=== PATIENT | female | born 1960 | race Caucasian/White ===

== ENCOUNTER 2016-06-03 11:25 | Emergency (ER) | payer SELFPAY ==
[~2016-06-03] VITALS: Ht 167.6 cm; Wt 63.2 kg
[~2016-06-03 11:25] MED LIST: ASPI1TAB7 PO; ATEN-102 PO; CELE20TA PO; MEDR150P IM; TRAZ100 PO
[2016-06-03 11:27] VITALS: BP 136/76; PULSE 67; RESP 15; TEMP 97.8; O2SAT 98
[2016-06-03] MEDS ORDERED: CELE20TA PO (13:07)
[2016-06-03] MEDS ORDERED: ASPI81CH CHEW (13:07)
[2016-06-03] MEDS ORDERED: DEPO150I IM (13:07)
[2016-06-03] MEDS ORDERED: ATEN50TA PO (13:07)
[2016-06-03] MEDS ORDERED: TRAZ100T4 PO (13:07)
[2016-06-03] MEDS ORDERED: METH500T3 PO (13:07)
[2016-06-03] MEDS ORDERED: LAMO25TA PO (13:07)
--- NOTE | 2016-06-03 13:31 | PD ---
HPI Chief Complaint: Cold / Flu Symptoms Time Seen by Provider: 12:50 Travel History International Travel<30 days: No Contact w/Intl Traveler<30days: No Traveled to known affect area: No History of Present Illness HPI Patient is a 55 year old female presents with coughing, congested, runny nose, fatigued and body aches for the past four days. States that she has been having nose bleeds after trying afrin as well. States she has just been feeling run down. Trying OTC remedies without much success. States URI symptoms are gradually worsening but that the nose bleed has resolved. Denies fevers. Symptoms are moderate in severity. PFSH Past Medical History Anxiety: Yes Depression: Yes Cardiac Catheterization: Yes (STENTS X 2) Cardiovascular Problems: Yes (HX OF MS ) Coronary Artery Disease: Yes Diminished Hearing: No Hypertension: Yes Tetanus Vaccination: Unknown ?: Not Menopausal: Yes : 1 Para: 1 Past Surgical History Section: Yes (X 1) Tonsillectomy: Yes Social History Alcohol Use: No (HX OF ETOH ABUSE) Tobacco Use: Yes (1 PPD) Substance Use: No (quit) Allergies-Medications (Allergen,Severity, Reaction): Coded Allergies: Nitroglycerin (Verified Allergy, Severe, Anaphylaxis, 06/03/16) Tetracycline (Verified Adverse Reaction, Intermediate, Shortness of Breath , 06/03/16) Reported Meds & Prescriptions Reported Meds & Active Scripts Active Atenolol 50 Mg Tab 50 Mg PO DAILY Trazodone HCl 100 Mg Tab 100 Mg PO HS Depoprovera 150 Mg Vial (Medroxyprogesterone Acetate) 150 Mg/Ml Susp 150 Mg IM Q90D First dose during the first 5 days of period. Come to clinic to administer injection. All Future refills done by Building [facility]er. Reported Methocarbamol 500 Mg Tab 500 Mg PO QID PRN Lamotrigine 25 Mg Tab 50 Mg PO BID Depo-Provera Inj (Medroxyprogesterone Inj) 150 Mg/Ml Inj 150 Mg IM ONCE Trazodone (Trazodone HCl) 100 Mg Tab 100 Mg PO HS Celexa (Citalopram Hydrobromide) 20 Mg Tab 30 Mg PO DAILY Atenolol 50 Mg Tab 50 Mg PO DAILY Aspirin 81 Mg Chew 81 Mg CHEW DAILY Celexa (Citalopram Hydrobromide) 20 Mg Tab 30 Mg PO DAILY Aspirin 81 mg Tab (Aspirin) 81 Mg Tab 81 Mg PO DAILY Review of Systems Except as stated in HPI: all other systems reviewed are Neg Physical Exam Narrative GENERAL: WD/WN in nad. Speaking in full sentances, non-toxic appearance, no cough. SKIN: Warm and dry. HEAD: Normocephalic. EYES: No scleral icterus. No injection or drainage. ENT: TM's clear bilaterally, there is a small area of irritation on the right nasal septum likely the source of her bleeding. No septal hematoma. No bleeding currently. Oropharynx clear and moist. NECK: Supple, trachea midline. No JVD or lymphadenopathy. CARDIOVASCULAR: Regular rate and rhythm without murmurs, gallops, or rubs. RESPIRATORY: Breath sounds equal bilaterally. No accessory muscle use. GASTROINTESTINAL: Abdomen soft, non-tender, nondistended. MUSCULOSKELETAL: No cyanosis, or edema. BACK: Nontender without obvious deformity. No CVA tenderness. Data Data Last Documented VS Vital Signs Date Time Temp Pulse Resp B/P Pulse Ox O2 Delivery O2 Flow Rate FiO2 06/03/16 11:27 97.8 67 15 136/76 98 Orders Chest, Pa & Lat (06/03/16 ) [facility] Medical Decision Making Medical Screen Exam Complete: Yes Emergency Medical Condition: Yes Differential Diagnosis PNA, URI, Epistaxis, nasal mucosal irritation. Narrative Course Given her age, CXR is indicated to rule out pna. VS WNL. She appears well. If CXR neg there is no indication for antibiotics and she will do well from symptomatic management with OTC meds. Last 24 hours Impressions Chest X-Ray 06/03/16 0000 Signed Impressions: Service Date/Time: Friday, June 03, 2016 13:25 - CONCLUSION: No acute cardiopulmonary abnormality is identified. Kameron Wallace MD Diagnosis Primary Impression: URI (upper respiratory infection) Qualified Code: J06.9 - Viral upper respiratory tract infection Disposition: DISCHARGE HOME Condition: Stable Skip Snell MD Jun 03, 2016 13:31
--- NOTE | 2016-06-03 13:48 | RADRPT ---
EXAM DATE/TIME: 06/03/2016 13:25 [facility] COMPARISON: CHEST SINGLE AP, January 08, 2016, 12:55. INDICATIONS : Cough and congestion. MEDICAL HISTORY : Hypertension. Myocardial infarction. Endocarditis. CAD. SURGICAL HISTORY : Stents. ENCOUNTER: Initial ACUITY: 4 - 6 days PAIN SCORE: 0/10 LOCATION: Bilateral chest FINDINGS: PA and lateral views of the chest demonstrate a normal-sized cardiac silhouette. There is no effusion , consolidation, or pneumothorax. The bones and soft tissues demonstrate no acute abnormality. There are stable healed right rib fractures.CONCLUSION: No acute cardiopulmonary abnormality is identified. Kameron Wallace MD on June 03, 2016 at 13:46 Board Certified Radiologist. This report was verified electronically.
== END 2016-06-03 13:56 | disposition home or self-care (01) ==
LOC: NEPA 11:25
DX: J06.9 Acute upper respiratory infection, unspecified (principal); F17.200 Nicotine dependence, unspecified, uncomplicated
CPT/HCPCS: 71020; 99283

== ENCOUNTER 2016-06-28 18:28 | Emergency (ER) | payer SELFPAY ==
[~2016-06-28] VITALS: Ht 167.6 cm; Wt 67.0 kg
[~2016-06-28 18:28] MED LIST changes: +ASPI81CH CHEW; +ATEN50TA PO; +DEPO150I IM; +LAMO25TA PO; +METH500T3 PO; +TRAZ100T4 PO
[2016-06-28 18:29] VITALS: BP 178/89; PULSE 66; RESP 24; TEMP 98.3; O2SAT 93
== END 2016-06-28 18:50 | disposition left against medical advice (07) ==
LOC: NED 18:45
DX: R68.89 Other general symptoms and signs (principal)
CPT/HCPCS: 99281

== ENCOUNTER 2017-06-29 15:07 | Emergency (ER) | payer SELFPAY ==
[~2017-06-29] VITALS: Ht 167.6 cm; Wt 65.0 kg
[~2017-06-29 15:07] MED LIST changes: +ASPI-516 CHEW; -ASPI81CH CHEW
[2017-06-29 15:10] VITALS: BP 155/88; PULSE 67; RESP 20; TEMP 98.9; O2SAT 93
[2017-06-29] MEDS ORDERED: MORPHINE SULFATE 4 MG/ML INJ IV PUSH ONE (15:45)
[2017-06-29] MEDS ORDERED: KETOROLAC TROMETHAMINE 30 MG/ML (IVP) VIAL IV PUSH ONE (15:45)
[2017-06-29] MEDS ORDERED: ONDANSETRON HCL 4 MG/2 ML VIAL IV PUSH ONE (15:45)
--- NOTE | 2017-06-29 15:50 | PD ---
HPI Chief Complaint: Respiratory Symptoms Time Seen by Provider: 15:33 Travel History International Travel<30 days: No Contact w/Intl Traveler<30days: No Traveled to known affect area: No History of Present Illness HPI The patient is a 56-year-old female who presents emergency department for right sided chest wall pain. The patient states that she was hugged by a friend on Saturday, developed some right sided chest pain. The patient felt like there was a "crack" when she was hugged by her friend. The pain is located over the lateral and anterior aspect of the right chest wall, worse with inspiration as well as coughing and movement. She does note mild shortness of breath secondary to the pain, denies any change in cough. She does have a history of tobacco use, denies any history of pneumothorax. She denies any nausea, vomiting, or abdominal pain. Symptoms are moderate. PFSH Past Medical History Anxiety: Yes Depression: Yes Cardiac Catheterization: Yes (STENTS X 2) Cardiovascular Problems: Yes Coronary Artery Disease: Yes Diminished Hearing: No Hypertension: Yes Tetanus Vaccination: > 5 Years Influenza Vaccination: No ?: Not Menopausal: Yes : 1 Para: 1 Past Surgical History Section: Yes (X 1) Tonsillectomy: Yes Social History Alcohol Use: No (HX OF ETOH ABUSE) Tobacco Use: Yes (1 PPD) Substance Use: No (quit) Allergies-Medications (Allergen,Severity, Reaction): Coded Allergies: nitroglycerin (Unverified Allergy, Severe, Anaphylaxis, 06/29/17) doxycycline (Unverified Adverse Reaction, Intermediate, Shortness of Breath, 06/29/17) minocycline (Unverified Adverse Reaction, Intermediate, Shortness of Breath, 06/29/17) tigecycline (Unverified Adverse Reaction, Intermediate, Shortness of Breath, 06/29/17) Reported Meds & Prescriptions Reported Meds & Active Scripts Active Atenolol 50 Mg Tab 50 Mg PO DAILY Trazodone HCl 100 Mg Tab 100 Mg PO HS Depoprovera 150 Mg Vial (Medroxyprogesterone Acetate) 150 Mg/Ml Susp 150 Mg IM Q90D First dose during the first 5 days of period. Come to clinic to administer injection. All Future refills done by [facility] Service [employer]igator. Reported Methocarbamol 500 Mg Tab 500 Mg PO QID PRN Lamotrigine 25 Mg Tab 50 Mg PO BID Depo-Provera Inj (Medroxyprogesterone Inj) 150 Mg/Ml Inj 150 Mg IM ONCE Trazodone (Trazodone HCl) 100 Mg Tab 100 Mg PO HS Celexa (Citalopram Hydrobromide) 20 Mg Tab 30 Mg PO DAILY Atenolol 50 Mg Tab 50 Mg PO DAILY Aspirin 81 Mg Chew 81 Mg CHEW DAILY Celexa (Citalopram Hydrobromide) 20 Mg Tab 30 Mg PO DAILY Aspirin 81 mg Tab (Aspirin) 81 Mg Tab 81 Mg PO DAILY Review of Systems Except as stated in HPI: all other systems reviewed are Neg General / Constitutional: No: Fever HENT: No: Lightheadedness Cardiovascular: Positive: Chest Pain or Discomfort Respiratory: No: Shortness of Breath Gastrointestinal: No: Nausea, Vomiting, Abdominal Pain Physical Exam Narrative GENERAL: Awake, alert, pleasant 56-year-old female who appears her stated age and is in no acute respiratory distress. The exam was performed in the presence of a female nurse. SKIN: Focused skin assessment warm/dry. HEAD: Atraumatic. Normocephalic. EYES: Patient is wearing glasses.. ENT: No nasal bleeding or discharge. Mucous membranes pink and moist. NECK: Trachea midline. No JVD. CARDIOVASCULAR: Regular rate and rhythm. No murmur appreciated. Tender palpation of the lateral and anterior right chest wall. No ecchymosis or crepitus noted. RESPIRATORY: No accessory muscle use. Clear to auscultation. Breath sounds equal bilaterally. GASTROINTESTINAL: Abdomen soft, non-tender, nondistended. No rebound tenderness. No right upper quadrant tenderness. No guarding or rigidity. MUSCULOSKELETAL: No obvious deformities. No clubbing. No cyanosis. No edema. NEUROLOGICAL: Awake and alert. No obvious cranial nerve deficits. Motor grossly within normal limits. Normal speech. PSYCHIATRIC: Appropriate mood and affect; insight and judgment normal. Data Data Last Documented VS Vital Signs Date Time Temp Pulse Resp B/P (MAP) Pulse Ox O2 Delivery O2 Flow Rate FiO2 06/29/17 15:10 98.9 67 20 155/88 (110) 93 Orders Orders Chest, Single Ap (06/29/17 ) Ketorolac Inj (Toradol Inj) (06/29/17 15:45) Morphine Inj (Morphine Inj) (06/29/17 15:45) Ondansetron Inj (Zofran Inj) (06/29/17 15:45) Ct Thorax/ Chest Wo Iv Contras (06/29/17 ) Resp Incentive Spirometry (06/29/17 ) MDM Medical Decision Making Medical Screen Exam Complete: Yes Emergency Medical Condition: Yes Medical Record Reviewed: Yes Interpretation(s) Chest x-ray unremarkable CT thorax without contrast reveals no acute abnormality is identified to explain the clinical symptoms. Coronary artery calcification. Differential Diagnosis Differential diagnosis includes fracture, pneumothorax, hemothorax, pulmonary contusion, pleuritic pain, rib fracture. Narrative Course IV was established and the patient was placed on cardiac telemetry monitoring and continuous pulse oximetry monitoring. The patient was administered Toradol , morphine, and Zofran. Chest x-ray was obtained. Chest x-ray was negative. CT of the thorax was obtained, no evidence of fracture. The patient will be discharged home on a 7 spirometry, anti-inflammatories, pain medication. She is advised to follow-up with her primary physician. Diagnosis Primary Impression: Right-sided chest wall pain Patient Instructions: General Instructions Additional Instructions: Medications as directed. Incentive spirometry. Stop smoking. Follow-up with her primary physician. Return if symptoms worsen or progress. Please provide a patient a copy of her CT results and x-ray results at discharge. Med/Other Pt SpecificInfo: Prescription(s) given Scripts Hydrocodone-Acetaminophen ([place]) 5 Mg-325 Mg Tab 1 TAB PO Q6H Y for PAIN, #12 TAB 0 Refills Prov: Daniel Nash MD 06/29/17 Ibuprofen (Ibuprofen) 600 Mg Tab 600 MG PO Q6H Y for Pain/Inflammation, #20 TAB 0 Refills Prov: Daniel Nash MD 06/29/17 Disposition: DISCHARGE HOME Condition: Stable Daniel Nash MD Jun 29, 2017 15:49
--- NOTE | 2017-06-29 16:24 | RADRPT ---
EXAM DATE/TIME: 06/29/2017 15:55 [facility] COMPARISON: CHEST PA & LAT, June 03, 2016, 13:25. CHEST SINGLE AP, January 08, 2016, 12:55. INDICATIONS : Chest pain. MEDICAL HISTORY : Myocardial infarction. Hypertension Depression. SURGICAL HISTORY : Stents. ENCOUNTER: Initial ACUITY: 4 - 6 days PAIN SCORE: 9/10 LOCATION: Bilateral chest FINDINGS: Portable AP view of the chest demonstrates a normal-sized cardiac silhouette. No effusion, consolidat ion, or pneumothorax is visualized. The bones and soft tissues demonstrate no acute abnormality. Ther e are stable old healed right rib fractures. CONCLUSION: Stable chest x-ray. No acute cardiopulmonary abnormalities identified. Kameron Wallace MD on June 29, 2017 at 16:22 Board Certified Radiologist. This report was verified electronically.
--- NOTE | 2017-06-29 17:49 | RADRPT ---
EXAM DATE/TIME: 06/29/2017 17:05 [facility] COMPARISON: CHEST SINGLE AP, June 29, 2017, 15:55. INDICATIONS : Right side pleuritic pain. RADIATION DOSE: 7.29 CTDIvol (mGy) MEDICAL HISTORY : Cardiovascular disease. Hypertension. Hepatitis C. SURGICAL HISTORY : Coronary artery stent. ENCOUNTER: Initial ACUITY: 3 days PAIN SCALE: 10/10 LOCATION: Right chest TECHNIQUE: Volumetric scanning of the chest was performed. Using automated exposure control and adjustment of t he mA and/or kV according to patient size, radiation dose was kept as low as reasonably achievable to obtain optimal diagnostic quality images. DICOM format image data is available electronically for r eview and comparison. Follow-up recommendations for detected pulmonary nodules are based at a minimum on nodule size and pa tient risk factors according to Fleischner Society Guidelines. FINDINGS: LUNGS: There is no consolidation or pneumothorax. No concerning pulmonary nodule is visualized. There is mi ld atelectasis at the right lung base. PLEURAE: There is no pleural thickening or pleural effusion. MEDIASTINUM: The heart and great vessels demonstrate no acute abnormality. There is coronary artery calcification. There is no mediastinal or hilar lymphadenopathy. AXILLAE: Within normal limits. No lymphadenopathy. MUSCULOSKELETAL: Within normal limits for patient age. There are mild degenerative changes of the thoracic spine. Ther e are stable old healed right rib fractures. MISCELLANEOUS: The visualized upper abdominal organs demonstrate no acute abnormality. CONCLUSION: 1. No acute abnormality is identified to explain the clinical symptoms. 2. Coronary artery calcification. Kameron Wallace MD on June 29, 2017 at 17:44 Board Certified Radiologist. This report was verified electronically.
[2017-06-29 17:51] VITALS: BP 103/57; PULSE 67; RESP 20; O2SAT 93
[2017-06-29] MEDS ORDERED: IBUP-232 PO (17:54)
[2017-06-29] MEDS ORDERED: NORC5TAB PO (17:54)
== END 2017-06-29 18:49 | disposition home or self-care (01) ==
LOC: NEPE 15:07
DX: R07.89 Other chest pain (principal); F41.9 Anxiety disorder, unspecified; F32.9 Major depressive disorder, single episode, unspecified; I10 Essential (primary) hypertension; F17.200 Nicotine dependence, unspecified, uncomplicated; Z79.82 Long term (current) use of aspirin; Z79.899 Other long term (current) drug therapy; Z88.8 Allergy status to other drugs, medicaments and biological substances
CPT/HCPCS: 71045; 71250; 94150; 96374; 96375; 99284; J1885; J2270; J2405

== ENCOUNTER 2017-09-16 22:58 | Inpatient (IN) | payer SELFPAY ==
[~2017-09-16] VITALS: Ht 167.6 cm; Wt 55.0 kg
[~2017-09-16 22:58] MED LIST changes: +IBUP-232 PO; +NORC5TAB PO
[2017-09-16 23:09] VITALS: BP 183/83; PULSE 54; RESP 18; TEMP 98.1; O2SAT 97
[2017-09-16 23:18] VITALS: O2SAT 96
[2017-09-16 23:40] LABS: AUTOMATED NEUTROPHIL # 7.4 TH/MM3 (1.8-7.7); BASOPHIL % 0.3 % (0.0-2.0); EOSINOPHIL % 0.2 % (0.0-4.0); HEMATOCRIT 39.5 % (35.0-46.0); HEMOGLOBIN 13.8 GM/DL (11.6-15.3); LYMPH % 16.4 % (9.0-44.0); LYMPHOCYTE # 1.6 TH/MM3 (1.0-4.8); MEAN CELL VOLUME 87.3 FL (80.0-100.0); MEAN CORPUSCULAR HEMOGLOBIN 30.5 PG (27.0-34.0); MEAN PLATELET VOLUME 8.8 FL (7.0-11.0); MONO % 8.7 % (0.0-8.0); MONOCYTE # 0.9 TH/MM3 (0-0.9); NEUT % 74.4 % (16.0-70.0); PLATELET COUNT 214 TH/MM3 (150-450); RED BLOOD COUNT 4.52 MIL/MM3 (4.00-5.30)
--- NOTE | 2017-09-16 23:49 | PD ---
HPI Chief Complaint: Altered Mental Status Time Seen by Provider: 23:11 Travel History International Travel<30 days: No Contact w/Intl Traveler<30days: No Traveled to known affect area: No History of Present Illness HPI The patient is a 56 year old female who presents to the [facility] emergency department with a history of altered mental status that reportedly began 2 days ago. The patient was brought in by ambulance services [facility]. They were told by the staff at the facility that the patient had been away for 4 days and then returned again 2 days ago. Since then, the patient has been sleeping in her room. The patient has not been coming out to eat or drink. The patient's blood sugar was reportedly 106 prior to arrival. The patient on arrival is drowsy although easily awakened. The patient is able to state her name and that she is currently in the hospital. Otherwise the patient is not providing any significant history. She refuses to open her eyes are examination of her pupils. The patient is spontaneously moving all of her extremities. [facility] Past Medical History Narrative Medical The patient's past medical history is obtained from reviewing the electronic medical record as the patient is uncooperative with her history. The patient has a history of anxiety and depression, coronary artery disease status post 2 stents being placed, hypertension. Anxiety: Yes Depression: Yes Cardiac Catheterization: Yes (STENTS X 2) Cardiovascular Problems: Yes Coronary Artery Disease: Yes Diminished Hearing: No Hypertension: Yes Tetanus Vaccination: Unknown Influenza Vaccination: No ?: Not Menopausal: Yes : 1 Para: 1 Past Surgical History Narrative Surgical The patient's past surgical history is significant for tonsillectomy, , cardiac catheterization with stent placement. Section: Yes (X 1) Tonsillectomy: Yes Social History Alcohol Use: No (HX OF ETOH ABUSE) Tobacco Use: Yes (1 PPD) Substance Use: Yes (in the past. been in rehab for 9 months) Allergies-Medications (Allergen,Severity, Reaction): Coded Allergies: nitroglycerin (Unverified Allergy, Severe, Anaphylaxis, 09/16/17) doxycycline (Unverified Adverse Reaction, Intermediate, Shortness of Breath, 09/16/17) minocycline (Unverified Adverse Reaction, Intermediate, Shortness of Breath, 09/16/17) tigecycline (Unverified Adverse Reaction, Intermediate, Shortness of Breath, 09/16/17) Reported Meds & Prescriptions Reported Meds & Active Scripts Active [place] (Hydrocodone-Acetaminophen) 5 Mg-325 Mg Tab 1 Tab PO Q6H PRN Ibuprofen 600 Mg Tab 600 Mg PO Q6H PRN Reported Methocarbamol 500 Mg Tab 500 Mg PO QID PRN Lamotrigine 25 Mg Tab 50 Mg PO BID Depo-Provera Inj (Medroxyprogesterone Inj) 150 Mg/Ml Inj 150 Mg IM ONCE Celexa (Citalopram Hydrobromide) 20 Mg Tab 30 Mg PO DAILY Atenolol 50 Mg Tab 50 Mg PO DAILY Aspirin 81 Mg Chew 81 Mg CHEW DAILY Review of Systems ROS Limitations: Refused, Poor Historian Neurologic: Positive: Change in Mentation Physical Exam Narrative General: The patient is a well-developed well-nourished female, drowsy on arrival, otherwise in no acute distress. Head and Neck exam: Head is normocephalic atraumatic. Eyes: The patient refuses to open her eyes for examination of her pupils. She refuses to cooperate with extraocular motion testing. The patient is noted on examination of her pupils to have dilated pupils bilaterally that are equal round and reactive to light. Nose: Midline septum with pink mucous membranes Mouth: Dentition unremarkable. Moist mucus membranes. Posterior oropharynx is not erythematous. No tonsillar hypertrophy. Uvula midline. Airway patent. Neck: No palpable lymphadenopathy. No nuchal rigidity. No thyromegaly. Cardiovascular: Sinus bradycardia in the 50s without murmurs, gallops, or rubs. No pulse deficit to the extremities on simultaneous auscultation and palpation of her radial artery. Lungs: Clear to auscultation bilaterally. No wheezes, rhonchi, or rales. Abdomen: Soft, without tenderness to palpation in all 4 quadrants of the abdomen. No guarding, rebound, or rigidity. Normal bowel sounds are audible. No tenderness on palpation of McBurney's point Extremities: No clubbing, cyanosis, or edema. 2+ pulses in all 4 extremities. Back: No spinous process tenderness to palpation. No costovertebral angle tenderness to palpation. Neurologic Exam: Grossly nonfocal. The patient spontaneously moves all extremities with 5/5 strength. The patient has intact sensation over all dermatomes. The patient has no facial asymmetry noted. Skin Exam: No rash noted. Intact skin that is warm and dry. Data Data Last Documented VS Vital Signs Date Time Temp Pulse Resp B/P (MAP) Pulse Ox O2 Delivery O2 Flow Rate FiO2 09/17/17 02:05 58 16 221/99 (139) 98 Room Air 09/16/17 23:09 98.1 Orders Orders Blood Glucose (09/16/17 23:15) Oximetry (09/16/17 23:15) Iv Access Insert/Monitor (09/16/17 23:15) Ecg Monitoring (09/16/17 23:15) Oxygen Administration (09/16/17 23:15) Complete Blood Count With Diff (09/16/17 23:15) Urinalysis - C+S If Indicated (09/16/17 23:15) Electrocardiogram (09/16/17 ) Electrocardiogram (09/16/17 23:18) Creatine Kinase (Cpk) (09/16/17 23:18) Ckmb (Isoenzyme) Profile (09/16/17 23:18) Troponin I (09/16/17 23:18) B-Type Natriuretic Peptide (09/16/17 23:18) Prothrombin Time / Inr (Pt) (09/16/17 23:18) Act Partial Throm Time (Ptt) (09/16/17 23:18) Lipase (09/16/17 23:18) Magnesium (Mg) (09/16/17 23:18) Ammonia (09/16/17 23:18) Thyroid Stimulating Hormone (09/16/17 23:18) Chest, Single Ap (09/16/17 23:18) Ct Brain W/O Iv Contrast(Rout) (09/16/17 23:18) Drug Screen, Random Urine (09/16/17 23:18) Alcohol (Ethanol) (09/16/17 23:18) Salicylates (Aspirin) (09/16/17 23:18) Tylenol (Acetaminophen) (09/16/17 23:18) Comprehensive Metabolic Panel (09/16/17 23:30) Cath For Specimen (09/17/17 00:01) CKMB (09/16/17 23:30) CKMB% (09/16/17 23:30) Sodium Chlor 0.9% 1000 Ml Inj (Ns 1000 M (09/17/17 00:45) Potassium Chlor 20 Meq Premix (Kcl 20 Me (09/17/17 00:45) Ct Abd/Pel W Iv Contrast(Rout) (09/17/17 00:32) Ed Urine Pregnancytest Poc (09/17/17 00:32) Urine Culture (09/17/17 00:17) Iohexol 350 Inj (Omnipaque 350 Inj) (09/17/17 01:13) Admit Order (Ed Use Only) (09/17/17 02:04) Labetalol Inj (Trandate Inj) (09/17/17 02:15) Lactulose Liq (Lactulose Liq) (09/17/17 02:15) Labs Laboratory Tests Test 09/16/17 23:30 09/17/17 00:17 White Blood Count 10.0 TH/MM3 Red Blood Count 4.52 MIL/MM3 Hemoglobin 13.8 GM/DL Hematocrit 39.5 % Mean Corpuscular Volume 87.3 FL Mean Corpuscular Hemoglobin 30.5 PG Mean Corpuscular Hemoglobin Concent 35.0 % Red Cell Distribution Width 13.0 % Platelet Count 214 TH/MM3 Mean Platelet Volume 8.8 FL Neutrophils (%) (Auto) 74.4 % Lymphocytes (%) (Auto) 16.4 % Monocytes (%) (Auto) 8.7 % Eosinophils (%) (Auto) 0.2 % Basophils (%) (Auto) 0.3 % Neutrophils # (Auto) 7.4 TH/MM3 Lymphocytes # (Auto) 1.6 TH/MM3 Monocytes # (Auto) 0.9 TH/MM3 Eosinophils # (Auto) 0.0 TH/MM3 Basophils # (Auto) 0.0 TH/MM3 CBC Comment DIFF FINAL Differential Comment Prothrombin Time 10.6 SEC Prothromb Time International Ratio 1.0 RATIO Activated Partial Thromboplast Time 23.4 SEC Blood Urea Nitrogen 10 MG/DL Creatinine 0.53 MG/DL Random Glucose 99 MG/DL Total Protein 7.0 GM/DL Albumin 3.7 GM/DL Calcium Level 8.6 MG/DL Magnesium Level 2.0 MG/DL Alkaline Phosphatase 48 U/L Aspartate Amino Transf (AST/SGOT) 91 U/L Alanine Aminotransferase (ALT/SGPT) 71 U/L Total Bilirubin 1.0 MG/DL Sodium Level 142 MEQ/L Potassium Level 2.8 MEQ/L Chloride Level 108 MEQ/L Carbon Dioxide Level 23.2 MEQ/L Anion Gap 11 MEQ/L Estimat Glomerular Filtration Rate 120 ML/MIN Ammonia 44 MCMOL/L Total Creatine Kinase 757 U/L Creatine Kinase MB 1.5 NG/ML Creatine Kinase MB % 0.2 % Troponin I 0.02 NG/ML B-Type Natriuretic Peptide 171 PG/ML Lipase 280 U/L Free Thyroxine 1.07 NG/DL Thyroid Stimulating Hormone 3rd Gen 0.066 uIU/ML Salicylates Level 7.1 MG/DL Acetaminophen Level LESS THAN 2.0 MCG/ML Ethyl Alcohol Level LESS THAN 3 MG/DL Urine Color YELLOW Urine Turbidity HAZY Urine pH 7.0 Urine Specific [place] 1.022 Urine Protein 30 mg/dL Urine Glucose (UA) NEG mg/dL Urine Ketones 10 mg/dL Urine Occult Blood NEG Urine Nitrite NEG Urine Bilirubin NEG Urine Urobilinogen 8.0 MG/DL Urine Leukocyte Esterase LARGE Urine RBC LESS THAN 1 /hpf Urine WBC 51 /hpf Urine Squamous Epithelial Cells 4 /hpf Urine Transitional Epithelial Cells 1 /hpf Urine Amorphous Sediment RARE Urine Bacteria RARE /hpf Urine Mucus MANY /lpf Microscopic Urinalysis Comment CULTURE INDICATED Urine Opiates Screen NEG Urine Barbiturates Screen NEG Urine Amphetamines Screen NEG Urine Benzodiazepines Screen NEG Urine Cocaine Screen NEG Urine Cannabinoids Screen NEG MDM Medical Decision Making Medical Screen Exam Complete: Yes Emergency Medical Condition: Yes Medical Record Reviewed: Yes Differential Diagnosis Alcohol intoxication, versus other substance intoxication, versus withdrawal syndrome, versus postictal state, versus hepatic encephalopathy, versus other encephalopathy Narrative Course During the course of the patient's emergency department visit, the patient's history, examination, and differential diagnosis were reviewed with the patient. The patient was placed on a monitoring and evaluation advisor with oximetry and frequent blood pressure monitoring. The patient had IV access obtained and blood work sent for analysis. The patient had an EKG done on arrival that shows a sinus bradycardia heart rate of 55, QRS duration 90 ms, QTC [address]-T wave abnormalities are noted. The patient was initially provided normal saline 1 L IV fluid bolus. The patient's laboratory studies were reviewed and remarkable for 09/16/17 23:30 Total Protein 7.0, Albumin 3.7, Calcium Level 8.6, Magnesium Level 2.0, Alkaline Phosphatase 48, Aspartate Amino Transf (AST/SGOT) 91 H, Alanine Aminotransferase (ALT/SGPT) 71 H, Total Bilirubin 1.0, potassium is noted to be low at 2.8 and was supplemented with IV potassium as a typewriter tester, TSH was low at 0.066, however the patient's clinical picture is not consistent with thyroid storm as the patient is not tachycardic, ammonia level is elevated at 44. The patient was given lactulose 30 mL p.o. 1. BNP is 171, PT PTT within normal limits, acetaminophen less than 2, alcohol level less than 3, salicylate 7.1, urine drug screen is negative. Radiology studies were reviewed and remarkable for a chest x-ray shows no acute abnormality, CT scan of the brain shows no acute abnormality. CT scan of the abdomen and pelvis shows a normal examination, possible healing fracture of the medial pubic ramus on the left. The patient's results were discussed with the patient, including the plan of care. I explained that further testing and/ or monitoring is indicated based on the patient's history, examination, and/ or laboratory findings. Therefore, I recommended admission for additional evaluation. The patient expressed understanding and was agreeable with this plan. The patient was admitted to the hospital in stable condition and sent to a bed under the care of the [facility] service. Physician Communication Physician Communication The patient's case including history, pertinent physical examination findings, and laboratory studies were discussed with Dr. Bird. It was agreed that the patient would be admitted to the [facility] service. Diagnosis Primary Impression: Altered mental status Qualified Codes: R40.0 - Somnolence Additional Impression: Low TSH level Admitting Information Admitting Physician Requests: Admit Annabelle Bess MD September 16, 2017 23:49
[2017-09-16 23:51] LABS: PROTHROMBIN TIME - PATIENT 10.6 SEC (9.8-11.6)
[2017-09-17] VITALS (13 sets, daily range): BP systolic 125–221; BP diastolic 60–99; PULSE 56–99; RESP 14–18; TEMP 97.3–99.3; O2SAT 97–99
[2017-09-17 00:06] LABS: ACETAMINOPHEN LESS THAN 2.0 MCG/ML (10.0-30.0); ALBUMIN 3.7 GM/DL (3.4-5.0); ALKALINE PHOSPHATASE 48 U/L (45-117); ALT (GPT) 71 U/L (10-53); AST (GOT) 91 U/L (15-37); BICARBONATE 23.2 MEQ/L (21.0-32.0); BLOOD UREA NITROGEN 10 MG/DL (7-18); CALCIUM 8.6 MG/DL (8.5-10.1); CHLORIDE 108 MEQ/L (98-107); CREATININE 0.53 MG/DL (0.50-1.00); GLOMERULAR FILTRATION RATE 120 ML/MIN (>89); GLUCOSE,RANDOM 99 MG/DL (74-106); SODIUM (NA) 142 MEQ/L (136-145); TROPONIN I 0.02 NG/ML (0.02-0.05)
--- NOTE | 2017-09-17 00:20 | RADRPT ---
EXAM DATE/TIME: 09/16/2017 23:42 [facility] COMPARISON: CHEST SINGLE AP, June 29, 2017, 15:55. INDICATIONS : Short of breath. MEDICAL HISTORY : Myocardial infarction. Hypertension Depression. SURGICAL HISTORY : Stents. ENCOUNTER: Initial ACUITY: 1 day PAIN SCORE: Non-responsive. LOCATION: Bilateral chest FINDINGS: A single view of the chest demonstrates the lungs to be symmetrically aerated without evidence of mas s, infiltrate or effusion. The cardiomediastinal contours are unremarkable. Osseous structures are intact. Multiple healed right-sided rib fractures are unchanged. There is right thoracic scoliosis. CONCLUSION: Normal examination. Chris Lawrence MD on September 17, 2017 at 0:18 Board Certified Radiologist. This report was verified electronically.
[2017-09-17 00:41] LABS: AMORPHOUS SEDIMENT, URINE RARE; BACTERIA, URINE RARE /hpf; BILIRUBIN, URINE NEG (NEG); BLOOD, URINE NEG (NEG); GLUCOSE,URINE NEG (NEG); KETONE, URINE 10 mg/dL (NEG); MUCUS URINE MANY /lpf (OCC); NITRITE,URINE NEG (NEG); SQUAMOUS EPITHELIAL CELL URINE 4 /hpf (0-5); TRANSITIONAL EPI CELLS, URINE 1 /hpf; URINE COLOR YELLOW (YELLW/STRAW); URINE LEUKOCYTE ESTERASE LARGE (NEG)
[2017-09-17] MEDS ORDERED: SODIUM CHLOR 0.9% 1000 ML INJ 1,000 ML IV ONE (00:45)
[2017-09-17] MEDS ORDERED: POTASSIUM CHLOR 20 MEQ PREMIX 100 ML IV ONE (00:45)
[2017-09-17] MEDS ORDERED: IOHEXOL 350 MG/ML 10 ML VIAL (for RAD DIAG) IVCONTRAST ONE (01:13)
--- NOTE | 2017-09-17 01:24 | RADRPT ---
EXAM DATE/TIME: 09/17/2017 01:04 [facility] COMPARISON: No previous studies available for comparison. INDICATIONS : Altered mental status. RADIATION DOSE: 35.71 CTDIvol (mGy) MEDICAL HISTORY : Cardiovascular disease. Hypertension. Hepatitis C.Substance abuse SURGICAL HISTORY : None. ENCOUNTER: Initial ACUITY: 1 day PAIN SCALE: 0/10 LOCATION: cranial TECHNIQUE: Multiple contiguous axial images were obtained of the head. Using automated exposure control and adj ustment of the mA and/or kV according to patient size, radiation dose was kept as low as reasonably a chievable to obtain optimal diagnostic quality images. DICOM format image data is available electro nically for review and comparison. FINDINGS: CEREBRUM: The ventricles are normal for age. No evidence of midline shift, mass lesion, hemorrhage or acute in farction. No extra-axial fluid collections are seen. CSF density collection in the medial left tempo ral lobe, clearly chronic POSTERIOR FOSSA: The cerebellum and brainstem are intact. The 4th ventricle is midline. The cerebellopontine angle i s unremarkable. EXTRACRANIAL: The visualized portion of the orbits is intact. SKULL: The calvaria is intact. No evidence of skull fracture. CONCLUSION: Normal examination. Chris Lawrence MD on September 17, 2017 at 1:23 Board Certified Radiologist. This report was verified electronically.
--- NOTE | 2017-09-17 01:26 | RADRPT ---
EXAM DATE/TIME: 09/17/2017 01:06 [facility] COMPARISON: No previous studies available for comparison. INDICATIONS : Evalaute for mass. IV CONTRAST: 100 cc Omnipaque 350 (iohexol) IV ORAL CONTRAST: No oral contrast ingested. RADIATION DOSE: 6.64 CTDIvol (mGy) MEDICAL HISTORY : Cardiovascular disease. Hypertension. Diabetes mellitus type 2.Substance abuse SURGICAL HISTORY : None. ENCOUNTER: Initial ACUITY: 1 day PAIN SCALE: 0/10 LOCATION: abdomen TECHNIQUE: Volumetric scanning of the abdomen and pelvis was performed. Using automated exposure control and ad justment of the mA and/or kV according to patient size, radiation dose was kept as low as reasonably achievable to obtain optimal diagnostic quality images. DICOM format image data is available electro nically for review and comparison. FINDINGS: LOWER LUNGS: The visualized lower lungs are clear. LIVER: Homogeneous density without lesion. There is no dilation of the biliary tree. No calcified gallston es. SPLEEN: Normal size without lesion. PANCREAS: Within normal limits. KIDNEYS: Normal in size and shape. There is no mass, stone or hydronephrosis. ADRENAL GLANDS: Within normal limits. VASCULAR: There is no aortic aneurysm. BOWEL/MESENTERY: The stomach, small bowel, and colon demonstrate no acute abnormality. There is no free intraperitone al air or fluid. ABDOMINAL WALL: Within normal limits. RETROPERITONEUM: There is no lymphadenopathy. BLADDER: No wall thickening or mass. REPRODUCTIVE: Within normal limits. Calcified leiomyoma INGUINAL: There is no lymphadenopathy or hernia. MUSCULOSKELETAL: Sclerosis of the left medial pubic ramus could be a stress fracture or old trauma.. CONCLUSION: Normal examination. Possible healing fracture medial pubic ramus on the left Chris Lawrence MD on September 17, 2017 at 1:24 Board Certified Radiologist. This report was verified electronically.
[2017-09-17] MEDS ORDERED: LABETALOL HCL 100 MG/20 ML VIAL IV PUSH ONE (02:15)
[2017-09-17] MEDS ORDERED: LACTULOSE SYRUP 20 GM/30 ML CUP PO ONE (02:15)
[2017-09-17] MEDS ORDERED: METHOCARBAMOL 500 MG TAB PO PRN (02:15)
[2017-09-17] MEDS ORDERED: MAGNESIUM HYDROXIDE SUSP 30 ML CUP PO PRN (02:30)
[2017-09-17] MEDS ORDERED: ENALAPRILAT 1.25 MG/ML VIAL IV PUSH PRN (02:30)
[2017-09-17] MEDS ORDERED: SODIUM CHLORIDE 0.9% FLUSH 10 ML FLUSH IV FLUSH PRN (02:30)
[2017-09-17] MEDS ORDERED: NALOXONE HCL 0.4 MG/ML AMP IV PUSH PRN (02:30)
[2017-09-17] MEDS ORDERED: BISACODYL 10 MG SUPP RECTAL PRN (02:30)
[2017-09-17] MEDS ORDERED: LACTULOSE SYRUP 20 GM/30 ML CUP PO PRN (02:30)
[2017-09-17] MEDS ORDERED: SENNOSIDES 8.6 MG TAB PO PRN (02:30)
[2017-09-17] MEDS: cefTRIAXone INJ 1,000 MG in SODIUM CHLORIDE 0.9% INJ 100 ML IV SCH (03:12)
[2017-09-17] MEDS: D5-1/2 NS + KCL 20 MEQ INJ 1,000 ML IV SCH ×2 (03:13→12:12)
[2017-09-17] MEDS ORDERED: POTASSIUM CHLORIDE 20 MEQ CONTROLLED RELEASE TAB PO ONE (03:15)
[2017-09-17] MEDS ORDERED: NIFEdipine 30 MG SUSTAINED RELEASE TAB PO ONE (03:15)
--- NOTE | 2017-09-17 03:30 | HHI.HP ---
HPI Service [facility] Primary Care Physician Unknown Admission Diagnosis Altered mental status Diagnoses: Travel History International Travel<30 Days: No Contact w/Intl Traveler <30 Da: No Traveled to Known Affected Are: No History of Present Illness 56-year-old female with a history of IV drug use, living in a fdc house, who presents with a 2 day history of altered mental status. Patient apparently left for 4 days, return 2 days ago, however has been sleeping in her room since this time without eating or drinking.. She is very somnolent, however does wake up for exam. Patient tells me she does not have any pain. Denies any chest pain or shortness of breath. She is able to tell me she is in the hospital, however does not know the date or year. History is obtained from chart review. Review of Systems Except as stated in HPI: all other systems reviewed are Neg Past Family Social History Past Medical History Reported history of coronary artery disease status post stenting 2 Hypertension Anxiety Depression Possible seizure disorder on Lamictal. Past Surgical History Cardiac catheterization with stenting Reported Medications Reported Meds & Active Scripts Active [place] (Hydrocodone-Acetaminophen) 5 Mg-325 Mg Tab 1 Tab PO Q6H PRN Ibuprofen 600 Mg Tab 600 Mg PO Q6H PRN Reported Methocarbamol 500 Mg Tab 500 Mg PO QID PRN Lamotrigine 25 Mg Tab 50 Mg PO BID Depo-Provera Inj (Medroxyprogesterone Inj) 150 Mg/Ml Inj 150 Mg IM ONCE Celexa (Citalopram Hydrobromide) 20 Mg Tab 30 Mg PO DAILY Atenolol 50 Mg Tab 50 Mg PO DAILY Aspirin 81 Mg Chew 81 Mg CHEW DAILY Allergies: Coded Allergies: nitroglycerin (Unverified Allergy, Severe, Anaphylaxis, 09/16/17) doxycycline (Unverified Adverse Reaction, Intermediate, Shortness of Breath, 09/16/17) minocycline (Unverified Adverse Reaction, Intermediate, Shortness of Breath, 09/16/17) tigecycline (Unverified Adverse Reaction, Intermediate, Shortness of Breath, 09/16/17) Family History pt does not answer family history Social History History of alcohol abuse History of tobacco abuse reportedly smoking 1 pack per day. History of multiple drug abuse, IV drug use. Has been in rehab for the past 9 months. Physical Exam Vital Signs Vital Signs Date Time Temp Pulse Resp B/P (MAP) Pulse Ox O2 Delivery O2 Flow Rate FiO2 09/17/17 03:03 99.0 62 18 184/77 (112) 98 Room Air 09/17/17 02:56 59 18 184/77 (112) 99 Room Air 09/17/17 02:05 58 16 221/99 (139) 98 Room Air 09/17/17 00:30 61 16 195/75 (115) 99 Room Air 09/17/17 00:03 89 14 190/65 (106) 98 Room Air 09/16/17 23:18 96 Room Air 09/16/17 23:18 96 Room Air 09/16/17 23:09 98.1 54 18 183/83 (116) 97 Physical Exam GENERAL: This is a well-nourished, well-developed patient, in no apparent distress. Patient is oriented to the fact that she is in a hospital. Otherwise disoriented. SKIN: No rashes, ecchymoses or lesions. Cool and dry. HEAD: Atraumatic. Normocephalic. No temporal or scalp tenderness. EYES: Pupils equal round and reactive. Extraocular motions intact. No scleral icterus. No injection or drainage. ENT: Nose without bleeding, purulent drainage or septal hematoma. Throat without erythema, tonsillar hypertrophy or exudate. Uvula midline. Airway patent. NECK: Trachea midline. No JVD or lymphadenopathy. Supple, nontender, no meningeal signs. CARDIOVASCULAR: Regular rate and rhythm without murmurs, gallops, or rubs. RESPIRATORY: Clear to auscultation. Breath sounds equal bilaterally. No wheezes , rales, or rhonchi. GASTROINTESTINAL: Abdomen soft, non-tender, nondistended. No hepato-splenomegaly , or palpable masses. No guarding. MUSCULOSKELETAL: Extremities without clubbing, cyanosis, or edema. No joint tenderness, effusion, or edema noted. No calf tenderness. Negative Homans sign bilaterally. NEUROLOGICAL: Awake and alert. Cranial nerves II through XII intact. Motor and sensory grossly within normal limits. Five out of 5 muscle strength in all muscle groups. Normal speech. Laboratory Laboratory Tests Test 5/7/18 23:30 09/17/17 00:17 09/17/17 02:43 White Blood Count 10.0 Red Blood Count 4.52 Hemoglobin 13.8 Hematocrit 39.5 Mean Corpuscular Volume 87.3 Mean Corpuscular Hemoglobin 30.5 Mean Corpuscular Hemoglobin Concent 35.0 Red Cell Distribution Width 13.0 Platelet Count 214 Mean Platelet Volume 8.8 Neutrophils (%) (Auto) 74.4 Lymphocytes (%) (Auto) 16.4 Monocytes (%) (Auto) 8.7 Eosinophils (%) (Auto) 0.2 Basophils (%) (Auto) 0.3 Neutrophils # (Auto) 7.4 Lymphocytes # (Auto) 1.6 Monocytes # (Auto) 0.9 Eosinophils # (Auto) 0.0 Basophils # (Auto) 0.0 CBC Comment DIFF FINAL Differential Comment Prothrombin Time 10.6 Prothromb Time International Ratio 1.0 Activated Partial Thromboplast Time 23.4 Blood Urea Nitrogen 10 Creatinine 0.53 Random Glucose 99 Total Protein 7.0 Albumin 3.7 Calcium Level 8.6 Magnesium Level 2.0 Alkaline Phosphatase 48 Aspartate Amino Transf (AST/SGOT) 91 Alanine Aminotransferase (ALT/SGPT) 71 Total Bilirubin 1.0 Sodium Level 142 Potassium Level 2.8 Chloride Level 108 Carbon Dioxide Level 23.2 Anion Gap 11 Estimat Glomerular Filtration Rate 120 Ammonia 44 Total Creatine Kinase 757 Creatine Kinase MB 1.5 Creatine Kinase MB % 0.2 Troponin I 0.02 B-Type Natriuretic Peptide 171 Lipase 280 Free Thyroxine 1.07 Thyroid Stimulating Hormone 3rd Gen 0.066 Salicylates Level 7.1 Acetaminophen Level LESS THAN 2.0 Ethyl Alcohol Level LESS THAN 3 Urine Color YELLOW Urine Turbidity HAZY Urine pH 7.0 Urine Specific [place] 1.022 Urine Protein 30 Urine Glucose (UA) NEG Urine Ketones 10 Urine Occult Blood NEG Urine Nitrite NEG Urine Bilirubin NEG Urine Urobilinogen 8.0 Urine Leukocyte Esterase LARGE Urine RBC LESS THAN 1 Urine WBC 51 Urine Squamous Epithelial Cells 4 Urine Transitional Epithelial Cells 1 Urine Amorphous Sediment RARE Urine Bacteria RARE Urine Mucus MANY Microscopic Urinalysis Comment CULTURE INDICATED Urine Opiates Screen NEG Urine Barbiturates Screen NEG Urine Amphetamines Screen NEG Urine Benzodiazepines Screen NEG Urine Cocaine Screen NEG Urine Cannabinoids Screen NEG Date/Time Source Procedure Growth Status 09/17/17 00:17 Urine Clean Catch Urine Culture Pending Received Result Diagram: 09/16/17 2330 09/16/17 2330 Imaging Last Impressions Abdomen/Pelvis CT 09/17/17 0032 Signed Impressions: Service Date/Time: Sunday, September 17, 2017 01:06 - CONCLUSION: Normal examination. Possible healing fracture medial pubic ramus on the left Chris Lawrence MD Head CT 09/16/172317 Signed Impressions: Service Date/Time: Sunday, September 17, 2017 01:04 - CONCLUSION: Normal examination. Chris Lawrence MD Chest X-Ray 09/16/172317 Signed Impressions: Service Date/Time: Saturday, September 16, 2017 23:42 - CONCLUSION: Normal examination. MD Theo Renner VTE Risk Assessment Theo VTE Risk Assessment: No/Low Risk (score <= 1) Caprini Risk Assessment Model Point Value = 1 Point Value = 2 Point Value = 3 Point Value = 5 Age 41-60 Minor surgery BMI > 25 kg/m2 Swollen legs Varicose veins or History of unexplained or recurrent spontaneous Oral contraceptives or hormone replacement Sepsis (< 1 month) Serious lung disease, including pneumonia (< 1 month) Abnormal pulmonary function Acute myocardial infarction Congestive heart failure (< 1 month) History of inflammatory bowel disease Medical patient at bed rest Age 61-74 Arthroscopic surgery Major open surgery (> 45 min) Laparoscopic surgery (> 45 min) Malignancy Confined to bed (> 72 hours) Immobilizing plaster cast Central venous access Age >= 75 History of VTE Family history of VTE Factor V Leiden Prothrombin [id number] Lupus anticoagulant Anticardiolipin antibodies Elevated serum homocysteine Heparin-induced thrombocytopenia Other congenital or acquired thrombophilia Stroke (< 1 month) Elective arthroplasty Hip, pelvis, or leg fracture Acute spinal cord injury (< 1 month) Prophylaxis Regimen Total Risk Factor Score Risk Level Prophylaxis Regimen 0-1 Low Early ambulation 2 Moderate Order ONE of the following: *Sequential Compression Device (SCD) *Heparin 5000 units SQ BID 3-4 Higher Order ONE of the following medications: *Heparin 5000 units SQ TID *Enoxaparin/Lovenox 40 mg SQ daily (WT < 150 kg, CrCl > 30 mL/min) *Enoxaparin/Lovenox 30 mg SQ daily (WT < 150 kg, CrCl > 10-29 mL/min) *Enoxaparin/Lovenox 30 mg SQ BID (WT < 150 kg, CrCl > 30 mL/min) AND/OR *Sequential Compression Device (SCD) 5 or more Highest Order ONE of the following medications: *Heparin 5000 units SQ TID (Preferred with Epidurals) *Enoxaparin/Lovenox 40 mg SQ daily (WT < 150 kg, CrCl > 30 mL/min) *Enoxaparin/Lovenox 30 mg SQ daily (WT < 150 kg, CrCl > 10-29 mL/min) *Enoxaparin/Lovenox 30 mg SQ BID (WT < 150 kg, CrCl > 30 mL/min) AND *Sequential Compression Device (SCD) Assessment and Plan Assessment and Plan //Encephalopathy. //History of seizures = Stop methocarbamol. Check Lamictal level. -Drug screen negative, will check psychiatry drug screen. = Ammonia only mildly elevated at 44. = CT brain negative on admission. Will check EEG. Neurology consulted. Appreciate assistance. //Hyperthyroidism. = TSH 0.066. = Check free T4, total T3. //Severe hypokalemia. Potassium 2.8. Replace. Magnesium within normal limits. //Transaminitis. Mild. AST 91, ALT 71. CK 757. = IV fluids. //Possible pubic ramus fracture. Patient does have tenderness palpation of pubic rami, noted by nurse, and confirmed on exam. Nondisplaced however. Hopefully when patient wakes up, we will learn some more. //Accelerated hypertension = Systolic blood pressure in the 220s. Improved slightly after IV hydralazine. Physician Certification 2 Midnight Certification Type: Admission for Inpatient Services Order for Inpatient Services The services are ordered in accordance with Medicare regulations or non- Medicare payer requirements, as applicable. In the case of services not specified as inpatient-only, they are appropriately provided as inpatient services in accordance with the 2-midnight benchmark. Estimated LOS (days): 2 days is the estimated time the patient will need to remain in the hospital, assuming treatment plan goals are met and no additional complications. Post-Hospital Plan: Not yet determined Vamshi Bird MD September 17, 2017 03:30
[2017-09-17] MEDS: ATENOLOL 50 MG TAB PO SCH (08:43)
[2017-09-17] MEDS: CITALOPRAM HYDROBROMIDE 20 MG TAB PO SCH (08:43)
[2017-09-17] MEDS: ASPIRIN 81 MG CHEW TAB CHEW SCH (08:43)
[2017-09-17] MEDS: SODIUM CHLORIDE 0.9% FLUSH 10 ML FLUSH IV FLUSH SCH ×2 (08:43→22:51)
[2017-09-17] MEDS: lamoTRIgine 25 MG TAB PO SCH ×2 (09:05→22:51)
--- NOTE | 2017-09-17 10:36 | PD.CONS ---
History of Present Illness Service Neurology Consult Requested By Medical Team Reason for Consult altered mental status Primary Care Physician Unknown History of Present Illness 56 y/o female with hx of altered mental status. She cannot tell me why she is in the hospital. Denies any past medical hx. Denies hx of seizure or stroke. Denies smoking or drug use. Denies any headache. No weakness or change in vision Hx is obtained from the chart: Hx IV drug use, living in senior care house, has had altered mental status x 2 days. Left the house for a few days and then came back and was sleeping in her room without eating or drinking x 2 days. (Hannah George) Review of Systems All other ROS: ROS reviewed as documented in chart (Hannah George) Past Family Social History Allergies: Coded Allergies: nitroglycerin (Unverified Allergy, Severe, Anaphylaxis, 09/16/17) doxycycline (Unverified Adverse Reaction, Intermediate, Shortness of Breath, 09/16/17) minocycline (Unverified Adverse Reaction, Intermediate, Shortness of Breath, 09/16/17) tigecycline (Unverified Adverse Reaction, Intermediate, Shortness of Breath, 09/16/17) Past Medical History pt denies past medical hx, obtained from chart: heart disease, HTN Anxiety Depression Possible seizure disorder on Lamictal Past Surgical History obtained from chart: , cardiac stenting Active Ordered Medications Current Medications Medications (Trade) Dose Ordered Sig/[place] Route Start Time Stop Time Status Last Admin (Aspirin Chew) 81 mg DAILY CHEW 09/17/17 09:00 09/17/17 08:43 (Tenormin) 50 mg DAILY PO 09/17/17 09:00 09/17/17 08:43 (CeleXA) 30 mg DAILY PO 09/17/17 09:00 09/17/17 08:43 (LaMICtal) 50 mg BID PO 09/17/17 09:00 09/17/17 09:05 (Vasotec Inj) 1.25 mg Q6H PRN IV PUSH 09/17/17 02:30 09/17/17 02:20 Potassium Chloride/Dextrose/ Sod Cl 1,000 ml @ 100 mls/hr Q10H IV 09/17/17 02:18 09/17/17 03:13 (NS Flush) 2 ml UNSCH PRN IV FLUSH 09/17/17 02:30 (NS Flush) 2 ml BID IV FLUSH 09/17/17 09:00 09/17/17 08:43 (Narcan Inj) 0.4 mg UNSCH PRN IV PUSH 09/17/17 02:30 (Milk Of Magnesia Liq) 30 ml Q12H PRN PO 09/17/17 02:30 (Senokot) 17.2 mg Q12H PRN PO 09/17/17 02:30 (Dulcolax Supp) 10 mg DAILY PRN RECTAL 09/17/17 02:30 (Lactulose Liq) 30 ml DAILY PRN PO 09/17/17 02:30 Ceftriaxone Sodium 1000 mg/ Sodium Chloride 100 ml @ 200 mls/hr Q24H IV 09/17/17 03:00 09/17/17 03:12 (Procardia Xl) 30 mg DAILY PO 09/17/17 12:00 Family History pt denies Social History denies alcohol, drugs and cigarette use but chart reports hx of IV drug use (Hannah George) Exam I&O / VS Vital Signs Date Time Temp Pulse Resp B/P (MAP) Pulse Ox O2 Delivery O2 Flow Rate FiO2 09/17/17 08:58 99.0 64 18 181/78 (112) 98 09/17/17 06:30 99 09/17/17 04:48 97.3 56 17 186/84 (118) 98 09/17/17 03:59 09/17/17 03:41 60 16 164/73 (103) 99 Room Air 09/17/17 03:39 59 16 99 Room Air 09/17/17 03:23 60 16 184/77 (112) 98 Room Air 09/17/17 03:03 99.0 62 18 184/77 (112) 98 Room Air 09/17/17 02:56 59 18 184/77 (112) 99 Room Air 09/17/17 02:05 58 16 221/99 (139) 98 Room Air 09/17/17 00:30 61 16 195/75 (115) 99 Room Air 09/17/17 00:03 89 14 190/65 (106) 98 Room Air 09/16/17 23:18 96 Room Air 09/16/17 23:18 96 Room Air 09/16/17 23:09 98.1 54 18 183/83 (116) 97 Eye: PERRL Respiratory: Non-labored respirations Cardiology: Normal rate Exam Comments pt is lethargic but arousable, she does not know the date or place, she does not know the current president, she is not cooperative with exam, moving extremities against gravity, does not follow all commands, no tremor noted, CN grossly intact, PERRL, does not follow EOM testing, no nystagmus noted, sensory unreliable, gait withheld (Hannah George) Review/Management Diagnosis/Plan: (1) Hypertension ICD Codes: I10 - Hypertension Status: Acute Plan: continue to monitor BP (2) Dyslipidemia ICD Codes: E78.5 - Dyslipidemia Status: Acute (3) Altered mental status ICD Codes: R41.82 - Altered mental status, unspecified Status: Acute Plan: on lamictal unclear if on for mood or sz disorder lamictal has been restarted CT wnl will check EEG - sz vs encephalopathy check MRI brain labs for causes of memory loss (Hannah George) Diagnosis/Plan: (1) Acute encephalopathy ICD Codes: G93.40 - Encephalopathy, unspecified Status: Acute Plan: suspect PRES 2/2 severe htn whit matter changes in anterior/posterior circulation. DWI negative alternate etiologies: toxic/medication withdrawal/ingestion resulting in cerebral vasoconstriction recs bp control f/u mra/mrv, likely negative f/u eeg iv thiamine iv cerebryx follow exam seen and examined. d/w PA/ agree with note (2) PRES (posterior reversible encephalopathy syndrome) ICD Codes: I67.83 - Posterior reversible encephalopathy syndrome Status: Acute Plan: bp control (Alejandro Watts MD) Problem Qualifiers (1) Altered mental status: Qualified Codes: R40.0 - Somnolence Hannah George September 17, 2017 10:36 Alejandro Watts MD September 17, 2017 15:38
--- NOTE | 2017-09-17 10:59 | EKG ---
Date Performed: 09/16/2017 Time Performed: 23:14:55 PTAGE: 56 years EKG: SINUS BRADYCARDIA ST DEVIATION AND MODERATE T-WAVE ABNORMALITY, CONSIDER ANTERIOR ISCHEMIA ABNORMAL ECG NO PREVIOUS TRACING DOCTOR: Chris Fernández Interpretating Date/Time 09/17/2017 10:58:28
[2017-09-17] MEDS ORDERED: NIFEdipine 30 MG SUSTAINED RELEASE TAB PO SCH (12:00)
[2017-09-17] MEDS ORDERED: GADODIAMIDE PF 287 MG/ML 5 ML VIAL (for RAD MRI) IVCONTRAST ONE (13:28)
--- NOTE | 2017-09-17 14:10 | RADRPT ---
EXAM DATE/TIME: 09/17/2017 12:52 [facility] COMPARISON: CT ABDOMEN & PELVIS W CONTRAST, September 17, 2017, 1:06. CT BRAIN W/O CONTRAST, September 17, 2017, 1:04. INDICATIONS : Altered mental status. CONTRAST: 11 cc Omniscan (gadodiamide) IV MEDICAL HISTORY : Unknown SURGICAL HISTORY : cardiac stent ENCOUNTER: Subsequent ACUITY: 2 day PAIN SCORE: 0/10 LOCATION: cranial TECHNIQUE: Multiplanar, multisequence MRI of the brain was performed both prior to and following the administrat ion of paramagnetic contrast. FINDINGS: There are patchy areas of T2 prolongation involving cortex at multiple sites bilaterally, most conspi cuously present in the high convexity frontal and parietal regions but also present in bilateral occi pital and temporal cortices. Minimal similar change in the left thalamus. The basal ganglia appear to be spared. There are changes also present in the cerebellar hemispheres bilaterally. No clear abnorm alities in the brainstem. There is no focal abnormal restriction of diffusion to suggest acute ischem ic insult.. There is no evidence of intracranial hemorrhage or mass. There is no abnormal parenchymal or leptomeningeal contrast enhancement. The postcontrast T1 sequences do reveal central signal void in the superior sagittal sinus which could reflect sagittal sinus thrombosis. CONCLUSION: Patchy abnormal T2 prolongation in brain parenchyma in multiple vascular territories bilaterally. Ini tial additional evaluation with MRI and MRV would be suggested. Kameron Candelario MD on September 17, 2017 at 13:35 Board Certified Radiologist. This report was verified electronically.
--- NOTE | 2017-09-17 15:34 | MG ---
cc: Nati Yancey MD DATE OF : 11/03/1950 AGE: [age] years old. EEG NUMBER: [id number] REQUESTING PHYSICIAN: MD Pelon ROOM: 1622. NOTE: With photic only, uncooperative. Patient patient understands what you ask of her but uncooperative. CT was normal. Change in mental status for 2 days per staff. She was at a senior living house. She left for 4 days, returned 2 days ago and had been sleeping in her room. MEDICATIONS: 1. Aspirin 2. Nifedipine. 3. Atenolol. 4. Lamictal. 5. Vasotec. 6. Ceftriaxone. PAST MEDICAL HISTORY: History of heart disease, substance abuse, hepatitis C. DESCRIPTION OF RECORD: The patient has overall background slowing of 2.5-3 Hz. Quite a bit of muscle artifact noted as well, but overall high amplitude slow waves, bihemispheric. A lot of eye movement artifact as well. No epileptiform features. Photic stimulation was performed with some minimal, if at all, driving response. IMPRESSION: Abnormal EEG due to moderate background slowing consistent with encephalopathic process. Clinical correlation. Nati Yancey MD DF/ANANT , 03:08 PM , 03:32 PM
[2017-09-17] MEDS ORDERED: FOSPHENYTOIN INJ 1,000 MGPE in SODIUM CHLORIDE 0.9% INJ 50 ML IV ONE (17:00)
[2017-09-17 17:21] LABS: FOLATE 11.2 NG/ML (3.1-17.5)
[2017-09-17] MEDS: THIAMINE INJ 100 MG in SODIUM CHLORIDE 0.9% INJ 100 ML IV SCH (17:32)
[2017-09-17] MEDS ORDERED: FOSPHENYTOIN SODIUM 100 MG PE/2 ML VIAL IV SCH (21:00)
[2017-09-18] VITALS (7 sets, daily range): BP systolic 147–170; BP diastolic 68–78; PULSE 54–66; RESP 17–18; TEMP 97.7–99.1; O2SAT 97–98
[2017-09-18] MEDS: D5-1/2 NS + KCL 20 MEQ INJ 1,000 ML IV SCH ×3 (02:55→18:13)
[2017-09-18] MEDS: cefTRIAXone INJ 1,000 MG in SODIUM CHLORIDE 0.9% INJ 100 ML IV SCH (02:55)
[2017-09-18 05:14] LABS: AUTOMATED NEUTROPHIL # 6.3 TH/MM3 (1.8-7.7); BASOPHIL % 0.5 % (0.0-2.0); EOSINOPHIL # 0.1 TH/MM3 (0-0.4); EOSINOPHIL % 0.8 % (0.0-4.0); HEMATOCRIT 42.6 % (35.0-46.0); HEMOGLOBIN 14.9 GM/DL (11.6-15.3); LYMPH % 24.8 % (9.0-44.0); LYMPHOCYTE # 2.4 TH/MM3 (1.0-4.8); MEAN CELL VOLUME 86.9 FL (80.0-100.0); MEAN CORPUSCULAR HEMOGLOBIN 30.5 PG (27.0-34.0); MEAN CORPUSCULAR HGB CONC 35.1 % (32.0-36.0); MEAN PLATELET VOLUME 8.7 FL (7.0-11.0); MONO % 7.8 % (0.0-8.0); MONOCYTE # 0.8 TH/MM3 (0-0.9); NEUT % 66.1 % (16.0-70.0); PLATELET COUNT 224 TH/MM3 (150-450); WHITE BLOOD COUNT 9.6 TH/MM3 (4.0-11.0)
[2017-09-18 05:43] LABS: ALBUMIN 3.8 GM/DL (3.4-5.0); AST (GOT) 52 U/L (15-37); BICARBONATE 20.7 MEQ/L (21.0-32.0); BLOOD UREA NITROGEN 7 MG/DL (7-18); CALCIUM 8.7 MG/DL (8.5-10.1); CHLORIDE 109 MEQ/L (98-107); CREATININE 0.51 MG/DL (0.50-1.00); GLOMERULAR FILTRATION RATE 126 ML/MIN (>89); GLUCOSE,RANDOM 94 MG/DL (74-106); SODIUM (NA) 140 MEQ/L (136-145)
[2017-09-18 05:44] LABS: ALT (GPT) 63 U/L (10-53); C-REACTIVE PROTEIN LESS THAN 0.29 MG/DL (0.00-0.30); PHENYTOIN (DILANTIN) 15.5 MCG/ML (10.0-20.0)
[2017-09-18 05:46] LABS: ALKALINE PHOSPHATASE 50 U/L (45-117); TOTAL BILIRUBIN ADULT 0.8 MG/DL (0.2-1.0); TOTAL PROTEIN 7.3 GM/DL (6.4-8.2)
--- NOTE | 2017-09-18 07:12 | HHI.PR ---
Review/Management Diagnosis/Plan: (1) Acute encephalopathy ICD Codes: G93.40 - Encephalopathy, unspecified Status: Acute Plan: suspect PRES 2/2 severe htn white matter changes in anterior/posterior circulation. DWI negative alternate etiologies: toxic/medication withdrawal/ingestion resulting in cerebral vasoconstriction mra/mrv-pending, likely negative no fever, wbc nml,.esr nml recs mental status improved bp control p.t. f/u lipid panele aspirin qd on lamictal; continue dilantin for now; d/c at discharge d/w pt medication compliance d/c planning possibly tomorrow no driving (2) PRES (posterior reversible encephalopathy syndrome) ICD Codes: I67.83 - Posterior reversible encephalopathy syndrome Status: Acute Plan: bp control (3) Hypertension ICD Codes: I10 - Hypertension Status: Acute Plan: continue to monitor BP (4) Dyslipidemia ICD Codes: E78.5 - Dyslipidemia Status: Chronic Plan: per medical Subjective Subjective Comments No acute events reported no hx of sz. states she was in her room for days; went to work earlier then normal feels alot better this am see's an md in [place]. No headache No chest pain No dyspnea Active Medications Current Medications Medications (Trade) Dose Ordered Sig/[place] Route Start Time Stop Time Status Last Admin (Aspirin Chew) 81 mg DAILY CHEW 09/17/17 09:00 09/17/17 08:43 (Tenormin) 50 mg DAILY PO 09/17/17 09:00 09/17/17 08:43 (CeleXA) 30 mg DAILY PO 09/17/17 09:00 09/17/17 08:43 (LaMICtal) 50 mg BID PO 09/17/17 09:00 09/17/17 22:51 (Vasotec Inj) 1.25 mg Q6H PRN IV PUSH 09/17/17 02:30 09/17/17 02:20 Potassium Chloride/Dextrose/ Sod Cl 1,000 ml @ 100 mls/hr Q10H IV 09/17/17 02:18 09/18/17 02:55 (NS Flush) 2 ml UNSCH PRN IV FLUSH 09/17/17 02:30 (NS Flush) 2 ml BID IV FLUSH 09/17/17 09:00 09/17/17 22:51 (Narcan Inj) 0.4 mg UNSCH PRN IV PUSH 09/17/17 02:30 (Milk Of Magnesia Liq) 30 ml Q12H PRN PO 09/17/17 02:30 (Senokot) 17.2 mg Q12H PRN PO 09/17/17 02:30 (Dulcolax Supp) 10 mg DAILY PRN RECTAL 09/17/17 02:30 (Lactulose Liq) 30 ml DAILY PRN PO 09/17/17 02:30 Ceftriaxone Sodium 1000 mg/ Sodium Chloride 100 ml @ 200 mls/hr Q24H IV 09/17/17 03:00 09/18/17 02:55 (Procardia Xl) 30 mg DAILY PO 09/17/17 12:00 09/17/17 12:07 Thiamine HCl 100 mg/Sodium Chloride 101 ml @ 101 mls/hr DAILY IV 09/17/17 17:00 09/17/17 17:32 (Cerebyx Inj) 200 mgpe Q12HR IV 09/17/17 21:00 09/17/17 22:51 Allergies Allergies Coded Allergies nitroglycerin (Unverified Allergy, Severe, Anaphylaxis, 09/16/17) doxycycline (Unverified Adverse Reaction, Intermediate, Shortness of Breath, ) minocycline (Unverified Adverse Reaction, Intermediate, Shortness of Breath, ) tigecycline (Unverified Adverse Reaction, Intermediate, Shortness of Breath, ) Review of Systems All other ROS: ROS reviewed as documented in chart Exam I&O / VS Vital Signs Date Time Temp Pulse Resp B/P (MAP) Pulse Ox O2 Delivery O2 Flow Rate FiO2 09/18/17 04:00 98.7 58 18 151/69 (96) 98 09/18/17 00:00 99.1 54 18 158/72 (100) 97 09/17/17 20:00 99.0 60 18 157/74 (101) 97 09/17/17 16:21 98.0 59 18 125/60 (81) 98 09/17/17 11:30 99.3 59 18 163/75 (104) 98 09/17/17 08:58 99.0 64 18 181/78 (112) 98 General: Alert and Oriented, No acute distress Eye: PERRL Respiratory: Non-labored respirations Cardiology: Normal rate Musculoskeletal: ROM Neurologic: Alert, Oriented, Normal sensory, Normal motor, No focal defects, CN II-XII intact, Normal DTR's Psychiatric: Cooperative, Appropriate mood & affect Exam Comments a and ox 2-3, did not know exact date, pres Trump, conversant, appropriate, calm, follows, able to name, repeat, eomi, ou 3-2mm, mild upgaze paresis, face sym, neck supple, no pentecostalism tenderness, manriquez to gravity, no clonus Objective Micro and Labs Laboratory Tests Test 09/17/17 16:16 09/18/17 04:34 Vitamin B12 Level 359 Folate 11.2 White Blood Count 9.6 Red Blood Count 4.90 Hemoglobin 14.9 Hematocrit 42.6 Mean Corpuscular Volume 86.9 Mean Corpuscular Hemoglobin 30.5 Mean Corpuscular Hemoglobin Concent 35.1 Red Cell Distribution Width 13.0 Platelet Count 224 Mean Platelet Volume 8.7 Neutrophils (%) (Auto) 66.1 Lymphocytes (%) (Auto) 24.8 Monocytes (%) (Auto) 7.8 Eosinophils (%) (Auto) 0.8 Basophils (%) (Auto) 0.5 Neutrophils # (Auto) 6.3 Lymphocytes # (Auto) 2.4 Monocytes # (Auto) 0.8 Eosinophils # (Auto) 0.1 Basophils # (Auto) 0.0 CBC Comment DIFF FINAL Differential Comment Erythrocyte Sedimentation Rate 5 Blood Urea Nitrogen 7 Creatinine 0.51 Random Glucose 94 Total Protein 7.3 Albumin 3.8 Calcium Level 8.7 Magnesium Level 2.0 Alkaline Phosphatase 50 Aspartate Amino Transf (AST/SGOT) 52 Alanine Aminotransferase (ALT/SGPT) 63 Total Bilirubin 0.8 Sodium Level 140 Potassium Level 3.2 Chloride Level 109 Carbon Dioxide Level 20.7 Anion Gap 10 Estimat Glomerular Filtration Rate 126 C-Reactive Protein LESS THAN 0.29 Phenytoin (Dilantin) Level 15.5 Date/Time Source Procedure Growth Status 09/17/17 00:17 Urine Clean Catch Urine Culture Pending Received Alejandro Watts MD September 18, 2017 07:12
[2017-09-18 08:40] LABS: CHOLESTEROL/ HDL RATIO 4.65 RATIO; HDL CHOLESTEROL 42.5 MG/DL (40.0-60.0)
[2017-09-18] MEDS ORDERED: NIFEdipine 60 MG SUSTAINED RELEASE TAB PO SCH (09:00)
[2017-09-18] MEDS: SODIUM CHLORIDE 0.9% FLUSH 10 ML FLUSH IV FLUSH SCH ×2 (09:00→20:10)
--- NOTE | 2017-09-18 09:16 | RADRPT ---
EXAM DATE/TIME: 09/18/2017 08:25 [facility] COMPARISON: CT BRAIN W/O CONTRAST, September 17, 2017, 1:04. MRV BRAIN W/O CONTRAST, September 18, 2017, 8:25. MRI BRAIN W & W/O CONTRAST, September 17, 2017, 12:52. INDICATIONS : CVA. MEDICAL HISTORY : Unknown. SURGICAL HISTORY : Unknown. ENCOUNTER: Initial ACUITY: 2 day PAIN SCORE: 0/10 LOCATION: head Please note a normal MRA of the brain does not entirely exclude the possibility of a small aneurysm, nor the possibility of distal intracranial vessel disease. TECHNIQUE: 3D time of flight MRA was performed. Source images, multiplanar STS MIP, and 3D volume MIP reconstru ctions were reviewed. FINDINGS: Anterior circulation: Distal intracranial internal carotid arteries are patent with flow extending to the middle and anteri or cerebral arteries. There is no evidence for aneurysm, vessel truncation or stenosis, and no eviden ce for vascular malformation. Posterior circulation: Symmetric distal vertebral arteries with flow extending to basilar artery. There is no evidence for aneurysm, vessel truncation or stenosis, and no evidence for vascular malformation. CONCLUSION: 1. Unremarkable MRA examination of the [place]. Specifically, no evidence for significant st enosis or large vessel occlusion. Everardo Alvarado MD on September 18, 2017 at 9:09 Board Certified Radiologist. This report was verified electronically.
--- NOTE | 2017-09-18 09:21 | RADRPT ---
EXAM DATE/TIME: 09/18/2017 08:25 [facility] COMPARISON: MRI BRAIN W & W/O CONTRAST, September 17, 2017, 12:52. INDICATIONS : CVA. MEDICAL HISTORY : Unknown. SURGICAL HISTORY : Unknown. ENCOUNTER: Initial ACUITY: 2 day PAIN SCORE: 0/10 LOCATION: head Please note a normal MRA of the brain does not entirely exclude the possibility of a small aneurysm, nor the possibility of distal intracranial vessel disease. TECHNIQUE: MR venography of the brain was performed without contrast with multiplanar and 3D reconstructions. FINDINGS: The superior sagittal sinus, straight sinus and right transverse sinus are widely patent. Peripheral aspect of the left transverse sinus is markedly atretic which is probably congenital. I do not see di screte filling defect to suggest thrombosis, however. CONCLUSION: 1. 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 2. Otherwise, remaining dural sinuses are patent without dural sinus thrombosis. Apparent filling def ects on the post contrasted MRI of the brain may represent flow phenomenon. Grayson Anderson MD on September 18, 2017 at 9:07 Board Certified Radiologist. This report was verified electronically.
[2017-09-18] MEDS: CITALOPRAM HYDROBROMIDE 20 MG TAB PO SCH (09:22)
[2017-09-18] MEDS: ATENOLOL 50 MG TAB PO SCH (09:22)
[2017-09-18] MEDS: lamoTRIgine 25 MG TAB PO SCH ×2 (09:22→20:11)
[2017-09-18] MEDS: THIAMINE INJ 100 MG in SODIUM CHLORIDE 0.9% INJ 100 ML IV SCH (09:23)
[2017-09-18] MEDS: ASPIRIN 81 MG CHEW TAB CHEW SCH (09:23)
--- NOTE | 2017-09-18 09:35 | HHI.PR ---
Subjective Remarks Follow up for encephalopathy. The patient is awake, alert, oriented to person, place, and time. She states she is starting to recall events prior to her admission. She states she remembers waking up in the middle of the night with some right facial and perioral numbness/tingling, and right arm tingling. She states she thought maybe she slept on her arm wrong. This is all she remembers. She states the right side of her face still feels slightly numb. Denies any headache, visual changes, unilateral weakness, chest pain, palpitations, shortness of breath, or abdominal complaints. She does admit to feeling slightly depressed, she states one of her close friends at the shelter house is sick and is not coming back. She denies any suicidal ideations. Objective Vitals Vital Signs Date Time Temp Pulse Resp B/P (MAP) Pulse Ox O2 Delivery O2 Flow Rate FiO2 09/18/17 04:00 98.7 58 18 151/69 (96) 98 09/18/17 00:00 99.1 54 18 158/72 (100) 97 09/17/17 20:00 99.0 60 18 157/74 (101) 97 09/17/17 16:21 98.0 59 18 125/60 (81) 98 09/17/17 11:30 99.3 59 18 163/75 (104) 98 I/O 09/17/17 09/17/17 09/17/17 09/18/17 09/18/17 09/18/17 07:00 15:00 23:00 07:00 15:00 23:00 Intake Total 2200 ml 1320 ml Output Total 100 ml Balance 2100 ml 1320 ml Intake Oral 0 ml 220 ml IV Total 2200 ml 1100 ml Output Urine Total 100 ml # Voids 1 4 3 # Bowel Movements 0 0 0 Result Diagram: 09/18/17 0434 09/18/17 0434 Imaging Last Impressions Neck Magnetic Resonance Angiography 09/18/17 0000 Signed Impressions: Service Date/Time: Monday, September 18, 2017 08:25 - CONCLUSION: Tandem mild eccentric stenoses involving the proximal left internal carotid artery Kameron Candelario MD Head/Brain Mag Res Venography 09/18/17 0000 Signed Impressions: Service Date/Time: Monday, September 18, 2017 08:25 - CONCLUSION: 1. 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 2. Otherwise, remaining dural sinuses are patent without dural sinus thrombosis. Apparent filling defects on the post contrasted MRI of the brain may represent flow phenomenon. Grayson Anderson MD Head Magnetic Resonance Angiography 09/18/17 0000 Signed Impressions: Service Date/Time: Monday, September 18, 2017 08:25 - CONCLUSION: 1. Unremarkable MRA examination of the [place]. Specifically, no evidence for significant stenosis or large vessel occlusion. Everardo Alvarado MD Abdomen/Pelvis CT 09/17/17 0032 Signed Impressions: Service Date/Time: Sunday, September 17, 2017 01:06 - CONCLUSION: Normal examination. Possible healing fracture medial pubic ramus on the left Chris Lawrence MD Brain MRI 09/17/17 0000 Signed Impressions: Service Date/Time: Sunday, September 17, 2017 12:52 - CONCLUSION: Patchy abnormal T2 prolongation in brain parenchyma in multiple vascular territories bilaterally. Initial additional evaluation with MRI and MRV would be suggested. Kameron Candelario MD Head CT 09/16/178 Signed Impressions: Service Date/Time: Sunday, September 17, 2017 01:04 - CONCLUSION: Normal examination. Chris Lawrence MD Chest X-Ray 09/16/178 Signed Impressions: Service Date/Time: Saturday, September 16, 2017 23:42 - CONCLUSION: Normal examination. Chris Lawrence MD Objective Remarks GENERAL: Well-nourished, well-developed middle aged female patient in [facility]. SKIN: Warm and dry. No rash. HEENT: Normocephalic. Atraumatic. Pupils equal and round. Mucous membranes pink and moist. CARDIOVASCULAR: Regular rate and rhythm. No murmur appreciated. RESPIRATORY: No accessory muscle use. Clear to auscultation. Breath sounds equal bilaterally. GASTROINTESTINAL: Abdomen soft, non-tender, nondistended. Normoactive bowel sounds x4. MUSCULOSKELETAL: No obvious deformities. Extremities without clubbing, cyanosis , or edema. NEUROLOGICAL: Awake and alert. No obvious cranial nerve deficits. Motor grossly within normal limits. Moving all extremities spontaneously. Normal speech. No facial droop/lid lag/tongue deviation. PSYCHIATRIC: Appropriate mood and affect; insight and judgment normal. Medications and IVs Current Medications Medications (Trade) Dose Ordered Sig/[place] Route Start Time Stop Time Status Last Admin (Aspirin Chew) 81 mg DAILY CHEW 09/17/17 09:00 09/18/17 09:23 (Tenormin) 50 mg DAILY PO 09/17/17 09:00 09/18/17 09:22 (CeleXA) 30 mg DAILY PO 09/17/17 09:00 09/18/17 09:22 (Vasotec Inj) 1.25 mg Q6H PRN IV PUSH 09/17/17 02:30 09/17/17 02:20 Potassium Chloride/Dextrose/ Sod Cl 1,000 ml @ 100 mls/hr Q10H IV 09/17/17 02:18 09/18/17 08:18 (NS Flush) 2 ml UNSCH PRN IV FLUSH 09/17/17 02:30 (NS Flush) 2 ml BID IV FLUSH 09/17/17 09:00 09/18/17 09:00 (Narcan Inj) 0.4 mg UNSCH PRN IV PUSH 09/17/17 02:30 (Milk Of Magnesia Liq) 30 ml Q12H PRN PO 09/17/17 02:30 (Senokot) 17.2 mg Q12H PRN PO 09/17/17 02:30 (Dulcolax Supp) 10 mg DAILY PRN RECTAL 09/17/17 02:30 (Lactulose Liq) 30 ml DAILY PRN PO 09/17/17 02:30 Ceftriaxone Sodium 1000 mg/ Sodium Chloride 100 ml @ 200 mls/hr Q24H IV 09/17/17 03:00 09/18/17 02:55 Thiamine HCl 100 mg/Sodium Chloride 101 ml @ 101 mls/hr DAILY IV 09/17/17 17:00 09/18/17 09:23 (LaMICtal) 75 mg BID PO 09/18/17 09:00 09/18/17 09:22 (Procardia Xl) 60 mg DAILY PO 09/18/17 09:00 09/18/17 09:21 Fosphenytoin Sodium 200 mgpe/ Sodium Chloride 54 ml @ 216 mls/hr Q12HR IV 09/18/17 11:00 A/P Assessment and Plan 56-year-old female with history of CAD s/p stent 2, HTN, anxiety, depression, hx of IVDU now clean at shelter house, presents with acute altered mental status Acute Encephalopathy: Unclear etiology, 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 BP as high as 221/99 upon arrival. -Unlikely infectious, afebrile, no leukocytosis, ESR wnl, however treating possible UTI -Rule out toxic encephalopathy, UDS negative. -Head CT reviewed, no acute findings -Brain MRI showed patchy abnormal T2 prolongation in brain parenchyma in multiple vascular territories; however Head MRA/MRV grossly unremarkable and findings on MRI may represent flow phenomenon -Abnormal EEG due to moderate background slowing consistent with encephalopathic process, but no epileptiform activity -Monitor Neuro Check, Seizure Precautions -Control Blood Pressure, see below -Neuro consulted, appreciate assistance -Continue aspirin 81mg daily -Continue patient's lamictal (although patient denies hx of seizures), also started on IV fosphenytoin by neuro with plan to d/c at discharge -Patient advised, No Driving -Plan for possible discharge tomorrow 09/19 if continues to improve Hypertensive Urgency with Accelerated Hypertension: BP as high as 221/99 upon arrival. With neurological changes as above. -continue patient's atenolol 50mg daily -added Procardia 60mg daily -BP improving, continue to monitor, adjust antihypertensives as needed Anxiety/Depression: patient's daughter discussed with RN, concerned for depression -continue patient's celexa -consult psychiatry Hypokalemia: K 2.8 upon arrival -given IV KCl boluses and po replacement -repeat K 3.2, give additional po KCl replacement -mag 2.0, wnl Abnormal UA: UA with large leuks, WBCs. Patient denies urinary complaints. -continue antibiotics with IV Rocephin for now -Monitor urine culture, adjust antibiotics as needed DVT Prophylaxis: Lovenox sq Discharge Planning Plan to likely discharge tomorrow if BP improves, AMS improves, and cleared by neurology. Natalie Marte PA-C September 18, 2017 9:35 am
--- NOTE | 2017-09-18 10:18 | RADRPT ---
EXAM DATE/TIME: 09/18/2017 08:25 [facility] COMPARISON: No previous studies available for comparison. INDICATIONS : Stroke. CONTRAST: 20 cc Omniscan (gadodiamide) IV MEDICAL HISTORY : Unknown. SURGICAL HISTORY : Unknown. ENCOUNTER: Initial ACUITY: 2 day PAIN SCORE: 0/10 LOCATION: neck Percent stenosis is calculated using the diameter of the stenotic region over the diameter of the nor mal distal internal carotid artery. TECHNIQUE: Bolus infused MRA of the extracranial circulation was performed using a neurovascular coil. Post pro cessing was performed including rotating subvolume maximum intensity projections of each carotid sully ry, rotating full volume maximum intensity projections of both carotid arteries, sagittal and coronal sliding thin slab reformations of each carotid artery, and left oblique sliding thin slab reformatio n through the aortic arch to include the origin of the arch branch vessels. FINDINGS: AORTIC ARCH: There is a three vessel origin of the great vessels from the aorta. No evidence of ostial narrowing. RIGHT CAROTID: The common carotid artery is intact. The carotid bulb has a normal configuration without ulceration or narrowing. The internal carotid artery lumen is smooth without stenosis. The external carotid ar richard is intact. LEFT CAROTID: There is mild undulating eccentric stenosis involving the proximal left internal carotid artery produ cing less than 40 % stenosis at tandem sites just distal to the bifurcation region. Beyond this disea se, the ICA is widely patent the skull base. VERTEBRALS: The vertebral arteries have a symmetric diameter. No stenotic lesions are seen. CONCLUSION: Tandem mild eccentric stenoses involving the proximal left internal carotid artery Kameron Candelario MD on September 18, 2017 at 10:13 Board Certified Radiologist. This report was verified electronically.
[2017-09-18] MEDS ORDERED: GADODIAMIDE PF 287 MG/ML 20 ML VIAL (for RAD MRI) IVCONTRAST ONE (10:56)
[2017-09-18] MEDS ORDERED: POTASSIUM CHLORIDE 20 MEQ CONTROLLED RELEASE TAB PO ONE (11:30)
[2017-09-18] MEDS: FOSPHENYTOIN INJ 200 MGPE in SODIUM CHLORIDE 0.9% INJ 50 ML IV SCH ×2 (12:09→20:07)
--- NOTE | 2017-09-18 13:48 | PD.PSY.CON ---
Provisional Diagnosis Admission Date September 17, 2017 at 02:06 [place] I. Major depressive disorder, recurrent [place] II. Deferred Lovell III. High blood pressure, seizures History of Present Illness Service Psychiatry Consult Requested By Medical team Reason for Consult Depression Primary Care Physician Unknown HPI The patient is a 56-year-old woman, single, domiciled in a snf house, one daughter, employed, with psychiatric history of depression, anxiety, substance dependence, IV drug use, in sustained remission, with history of CAD s /p stent 2, HTN, who presents with acute altered mental status. She was admitted with acute Encephalopathy: Unclear etiology, 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 BP as high as 221/99 upon arrival. Abnormal EEG due to moderate background slowing consistent with encephalopathic proc-Unlikely infectious, afebrile, no leukocytosis, ESR wnl, however treating possible UTI. Head CT reviewed, no acute findings. Brain MRI showed patchy abnormal T2 prolongation in brain parenchyma in multiple vascular territories; however Head MRA/MRV grossly unremarkable and findings on MRI may represent flow pheess, but no epileptiform activity. Consulted to psychiatry for symptoms of depression. On psychiatric evaluation the patient is calm, cooperative and very pleasant. She reports that today she feels much better. She described her mood as "quite fine". Denies symptoms of depression, denies anhedonia, denies hopelessness, denies helplessness, denies worthlessness, she denies suicidal and homicidal ideation, she denies visual and auditory hallucinations. The patient is goal oriented, she says that she wants to leave the hospital to go back to work. Patient reports a good appetite, good sleep. Denies anxiety. She is fully oriented 3 , no fluctuation of consciousness, no confusion observed at this moment. Agitation, no aggressive behavior. He denies the use of illegal drugs or alcohol. Review of Systems Constitutional: DENIES: Diaphoretic episodes, Fatigue, Fever, Weight gain, Weight loss, Chills, Dizziness, Change in appetite, Night Sweats Endocrine: DENIES: Abnorml menstrual pattern, Heat/cold intolerance, Polydipsia , Polyuria, Polyphagia Eyes: DENIES: Blurred vision, Diplopia, Eye inflammation, Eye pain, Vision loss , Photosensitivity, Double Vision Ears, nose, mouth, throat: DENIES: Tinnitus, Hearing loss, Vertigo, Nasal discharge, Oral lesions, Throat pain, Hoarseness, Ear Pain, Running Nose, Epistaxis, Sinus Pain, Toothache, Odynophagia Respiratory: DENIES: Apneas, Cough, Snoring, Wheezing, Hemoptysis, Sputum production, Shortness of breath Cardiovascular: DENIES: Chest pain, Palpitations, Syncope, Dyspnea on Exertion , PND, Lower Extremity Edema, Orthopnea, Claudication Gastrointestinal: DENIES: Abdominal pain, Black stools, Bloody stools, Constipation, Diarrhea, Nausea, Vomiting, Difficulty Swallowing, Anorexia Genitourinary: DENIES: Abnormal vaginal bleeding, Dysmenorrhea, Dyspareunia, Sexual dysfunction, Urinary frequency, Urinary incontinence, Urgency, Hematuria , Dysuria, Nocturia, Vaginal discharge Musculoskeletal: DENIES: Joint pain, Muscle aches, Stiffness, Joint Swelling, Back pain, Neck pain Integumentary: DENIES: Abnormal pigmentation, Pruritus, Rash, Nail changes, Breast masses, Breast skin changes, Nipple discharge Hematologic/lymphatic: DENIES: Bruising, Lymphadenopathy Immunologic/allergic: DENIES: Eczema, Urticaria Neurologic: DENIES: Abnormal gait, Headache, Localized weakness, Paresthesias, Seizures, Speech Problems, Tremor, Poor Balance Psychiatric: DENIES: Anxiety, Confusion, Mood changes, Depression, Hallucinations, Agitation, Suicidal Ideation, Homicidal Ideation, Delusions Past Family Social History Coded Allergies: nitroglycerin (Unverified Allergy, Severe, Anaphylaxis, 09/16/17) doxycycline (Unverified Adverse Reaction, Intermediate, Shortness of Breath, 09/16/17) minocycline (Unverified Adverse Reaction, Intermediate, Shortness of Breath, 09/16/17) tigecycline (Unverified Adverse Reaction, Intermediate, Shortness of Breath, 09/16/17) Active Scripts Hydrocodone-Acetaminophen ([place]) 5 Mg-325 Mg Tab, 1 TAB PO Q6H Y for PAIN, #12 TAB 0 Refills Prov:Daniel Nash MD 06/29/17 Ibuprofen (Ibuprofen) 600 Mg Tab, 600 MG PO Q6H Y for Pain/Inflammation, #20 TAB 0 Refills Prov:Daniel Nash MD 06/29/17 Reported Medications Methocarbamol (Methocarbamol) 500 Mg Tab, 500 MG PO QID Y for PAIN SCALE 1 TO 5 , #120 TAB 0 Refills 06/03/16 Lamotrigine (Lamotrigine) 25 Mg Tab, 50 MG PO BID for Control Seizures, #60 TAB 0 Refills 06/03/16 Medroxyprogesterone Inj (Depo-Provera Inj) 150 Mg/Ml Inj, 150 MG IM ONCE for Control, #1 VIAL 0 Refills 06/03/16 Citalopram (Celexa) 20 Mg Tab, 30 MG PO DAILY for Control Depression, #30 TAB 0 Refills 06/03/16 Atenolol (Atenolol) 50 Mg Tab, 50 MG PO DAILY for Blood Pressure Management, # 30 TAB 0 Refills 06/03/16 Aspirin (Aspirin) 81 Mg Chew, 81 MG CHEW DAILY, TAB 0 Refills 06/03/16 Current Medications Medications (Trade) Dose Ordered Sig/[place] Route Start Time Stop Time Status Last Admin (Aspirin Chew) 81 mg DAILY CHEW 09/17/17 09:00 09/18/17 09:23 (Tenormin) 50 mg DAILY PO 09/17/17 09:00 09/18/17 09:22 (CeleXA) 30 mg DAILY PO 09/17/17 09:00 09/18/17 09:22 (Vasotec Inj) 1.25 mg Q6H PRN IV PUSH 09/17/17 02:30 09/17/17 02:20 Potassium Chloride/Dextrose/ Sod Cl 1,000 ml @ 100 mls/hr Q10H IV 09/17/17 02:18 09/18/17 08:18 (NS Flush) 2 ml UNSCH PRN IV FLUSH 09/17/17 02:30 (NS Flush) 2 ml BID IV FLUSH 09/17/17 09:00 09/18/17 09:00 (Narcan Inj) 0.4 mg UNSCH PRN IV PUSH 09/17/17 02:30 (Milk Of Magnesia Liq) 30 ml Q12H PRN PO 09/17/17 02:30 (Senokot) 17.2 mg Q12H PRN PO 09/17/17 02:30 (Dulcolax Supp) 10 mg DAILY PRN RECTAL 09/17/17 02:30 (Lactulose Liq) 30 ml DAILY PRN PO 09/17/17 02:30 Ceftriaxone Sodium 1000 mg/ Sodium Chloride 100 ml @ 200 mls/hr Q24H IV 09/17/17 03:00 09/18/17 02:55 Thiamine HCl 100 mg/Sodium Chloride 101 ml @ 101 mls/hr DAILY IV 09/17/17 17:00 09/18/17 09:23 (LaMICtal) 75 mg BID PO 09/18/17 09:00 09/18/17 09:22 (Procardia Xl) 60 mg DAILY PO 09/18/17 09:00 09/18/17 09:21 Fosphenytoin Sodium 200 mgpe/ Sodium Chloride 54 ml @ 216 mls/hr Q12HR IV 09/18/17 11:00 09/18/17 12:09 (Lovenox Inj) 40 mg HS SQ 09/18/17 21:00 Social History Patient was born and raised in [place], she lives in [facility] in a ch[facility], she is single, she has 1 daughter who is 29 years old, she works, her highest level of education is high Patient's Strengths (min. 2) Patient is domiciled in a structured environment Physical Exam No tremors, no EPS, no psychomotor agitation or retardation Vital Signs Vital Signs Date Time Temp Pulse Resp B/P (MAP) Pulse Ox O2 Delivery O2 Flow Rate FiO2 09/18/17 12:00 99.0 56 18 147/68 (94) 97 09/17/17 03:41 Room Air I/O 09/18/17 09/18/17 09/19/17 08:00 16:00 00:00 Intake Total 1320 ml Balance 1320 ml Lab Results Test 09/17/17 16:16 09/18/17 04:34 Vitamin B12 Level 359 PG/ML Folate 11.2 NG/ML White Blood Count 9.6 TH/MM3 Red Blood Count 4.90 MIL/MM3 Hemoglobin 14.9 GM/DL Hematocrit 42.6 % Mean Corpuscular Volume 86.9 FL Mean Corpuscular Hemoglobin 30.5 PG Mean Corpuscular Hemoglobin Concent 35.1 % Red Cell Distribution Width 13.0 % Platelet Count 224 TH/MM3 Mean Platelet Volume 8.7 FL Neutrophils (%) (Auto) 66.1 % Lymphocytes (%) (Auto) 24.8 % Monocytes (%) (Auto) 7.8 % Eosinophils (%) (Auto) 0.8 % Basophils (%) (Auto) 0.5 % Neutrophils # (Auto) 6.3 TH/MM3 Lymphocytes # (Auto) 2.4 TH/MM3 Monocytes # (Auto) 0.8 TH/MM3 Eosinophils # (Auto) 0.1 TH/MM3 Basophils # (Auto) 0.0 TH/MM3 CBC Comment DIFF FINAL Differential Comment Erythrocyte Sedimentation Rate 5 mm/hr Blood Urea Nitrogen 7 MG/DL Creatinine 0.51 MG/DL Random Glucose 94 MG/DL Total Protein 7.3 GM/DL Albumin 3.8 GM/DL Calcium Level 8.7 MG/DL Magnesium Level 2.0 MG/DL Alkaline Phosphatase 50 U/L Aspartate Amino Transf (AST/SGOT) 52 U/L Alanine Aminotransferase (ALT/SGPT) 63 U/L Total Bilirubin 0.8 MG/DL Sodium Level 140 MEQ/L Potassium Level 3.2 MEQ/L Chloride Level 109 MEQ/L Carbon Dioxide Level 20.7 MEQ/L Anion Gap 10 MEQ/L Estimat Glomerular Filtration Rate 126 ML/MIN C-Reactive Protein LESS THAN 0.29 MG/DL Triglycerides Level 104 MG/DL Cholesterol Level 198 MG/DL LDL Cholesterol 135 MG/DL HDL Cholesterol 42.5 MG/DL Cholesterol/HDL Ratio 4.65 RATIO Phenytoin (Dilantin) Level 15.5 MCG/ML Date/Time Source Procedure Growth Status 09/17/17 00:17 Urine Clean Catch Urine Culture - Preliminary <10,000 CFU/ML GRAM NEGATIVE SMITHA Resulted Mental Status Examination Appearance: Appropriate Consciousness: Alert Orientation: x4 Motor Activity: Normal gait Speech: Unremarkable Language: Adequate Fund of Knowledge: Adequate Attention and Concentration: Adequate Memory: Unremarkable Mood: Appropriate Affect: Appropriate Thought Process & Associations: Intact Thought Content: Appropriate Hallucination Type: None Delusion Type: None Suicidal Ideation: No Suicidal Plan: No Suicidal Intention: No Homicidal Ideation: No Homicidal Plan: No Homicidal Intention: No Insight: Adequate Judgment: Adequate Assessment & Plan Problem List: (1) Major depressive disorder, recurrent ICD Codes: F33.9 - Major depressive disorder, recurrent, unspecified Assessment & Plan: On Psychiatric evaluation today the patient does not present any neuropsychiatric symptoms that require an immediate psychiatric intervention. The patient denies symptomatology of depression, anxiety, ravindra or psychosis. Patient is fully oriented 3, no confusion, no fluctuation of consciousness present at this moment. He denies suicidal enemas ideation, she denies visual and auditory hallucinations. Patient has psychiatric history of depression, she has been in Celexa 30 mg, stable, without side effects. Continue Celexa 30 mg. Brief supportive psychotherapy, psychoeducation, motivation provided. She does not meet criteria for involuntary psychiatric admission. Continue psychiatric care as an outpatient in a snf house. Assessment & Plan Estimated LOS: Seth Gallego MD September 18, 2017 13:48
[2017-09-18] MEDS ORDERED: ENOXAPARIN SODIUM 40 MG/0.4 ML SYRINGE SQ SCH (21:00)
[2017-09-19] VITALS: BP 155/73; PULSE 59; RESP 20; TEMP 99.7; O2SAT 96
[2017-09-19 00:02] VITALS: PULSE 60
[2017-09-19] MEDS: cefTRIAXone INJ 1,000 MG in SODIUM CHLORIDE 0.9% INJ 100 ML IV SCH (03:37)
[2017-09-19] MEDS: D5-1/2 NS + KCL 20 MEQ INJ 1,000 ML IV SCH (03:37)
[2017-09-19 04:00] VITALS: BP 167/78; PULSE 55; RESP 20; TEMP 98.9; O2SAT 97
[2017-09-19 04:03] VITALS: PULSE 56
[2017-09-19 08:11] VITALS: BP 143/80; PULSE 53; RESP 18; TEMP 97.9; O2SAT 100
--- NOTE | 2017-09-19 08:23 | HHI.PR ---
Review/Management Diagnosis/Plan: (1) Acute encephalopathy ICD Codes: G93.40 - Encephalopathy, unspecified Status: Acute Plan: suspect PRES 2/2 severe htn white matter changes in anterior/posterior circulation. DWI negative alternate etiologies: toxic/medication withdrawal/ingestion resulting in cerebral vasoconstriction mra/mrv-negative no fever, wbc nml,.esr nml no statin with elevated lft's recs neuro stable mental status appropriate bp control aspirin qd on lamictal d/w pt medication compliance d/c planning today repeat mr brain in 4-6 weeks; pt understands no driving (2) PRES (posterior reversible encephalopathy syndrome) ICD Codes: I67.83 - Posterior reversible encephalopathy syndrome Status: Acute Plan: bp control (3) Hypertension ICD Codes: I10 - Hypertension Status: Acute Plan: continue to monitor BP (4) Dyslipidemia ICD Codes: E78.5 - Dyslipidemia Status: Chronic Plan: per medical Subjective Subjective Comments No acute events reported No headache No chest pain No dyspnea Active Medications Current Medications Medications (Trade) Dose Ordered Sig/[place] Route Start Time Stop Time Status Last Admin (Aspirin Chew) 81 mg DAILY CHEW 09/17/17 09:00 09/18/17 09:23 (Tenormin) 50 mg DAILY PO 09/17/17 09:00 Future Hold 09/18/17 09:22 (CeleXA) 30 mg DAILY PO 09/17/17 09:00 09/18/17 09:22 (Vasotec Inj) 1.25 mg Q6H PRN IV PUSH 09/17/17 02:30 09/17/17 02:20 Potassium Chloride/Dextrose/ Sod Cl 1,000 ml @ 100 mls/hr Q10H IV 09/17/17 02:18 09/19/17 03:37 (NS Flush) 2 ml UNSCH PRN IV FLUSH 09/17/17 02:30 (NS Flush) 2 ml BID IV FLUSH 09/17/17 09:00 09/18/17 20:10 (Narcan Inj) 0.4 mg UNSCH PRN IV PUSH 09/17/17 02:30 (Milk Of Magnesia Liq) 30 ml Q12H PRN PO 09/17/17 02:30 (Senokot) 17.2 mg Q12H PRN PO 09/17/17 02:30 (Dulcolax Supp) 10 mg DAILY PRN RECTAL 09/17/17 02:30 (Lactulose Liq) 30 ml DAILY PRN PO 09/17/17 02:30 Ceftriaxone Sodium 1000 mg/ Sodium Chloride 100 ml @ 200 mls/hr Q24H IV 09/17/17 03:00 09/19/17 03:37 Thiamine HCl 100 mg/Sodium Chloride 101 ml @ 101 mls/hr DAILY IV 09/17/17 17:00 09/18/17 09:23 (LaMICtal) 75 mg BID PO 09/18/17 09:00 09/18/17 20:11 Fosphenytoin Sodium 200 mgpe/ Sodium Chloride 54 ml @ 216 mls/hr Q12HR IV 09/18/17 11:00 09/18/17 20:07 (Lovenox Inj) 40 mg HS SQ 09/18/17 21:00 (KCl) 10 meq DAILY PO 09/19/17 09:00 (Procardia Xl) 90 mg DAILY PO 09/19/17 09:00 Allergies Allergies Coded Allergies nitroglycerin (Unverified Allergy, Severe, Anaphylaxis, 09/16/17) doxycycline (Unverified Adverse Reaction, Intermediate, Shortness of Breath, ) minocycline (Unverified Adverse Reaction, Intermediate, Shortness of Breath, ) tigecycline (Unverified Adverse Reaction, Intermediate, Shortness of Breath, ) Review of Systems All other ROS: ROS reviewed as documented in chart Exam I&O / VS Vital Signs Date Time Temp Pulse Resp B/P (MAP) Pulse Ox O2 Delivery O2 Flow Rate FiO2 09/19/17 08:11 97.9 53 18 143/80 (101) 100 09/19/17 04:03 56 09/19/17 04:00 98.9 55 20 167/78 (107) 97 09/19/17 00:02 60 09/19/17 00:00 99.7 59 20 155/73 (100) 96 09/18/17 20:00 97.8 60 17 170/72 (104) 98 09/18/17 19:50 63 09/18/17 16:00 97.7 62 18 157/70 (99) 97 09/18/17 12:00 99.0 56 18 147/68 (94) 97 General: Alert and Oriented, No acute distress Eye: PERRL Respiratory: Non-labored respirations Cardiology: Normal rate Musculoskeletal: ROM Neurologic: Alert, Oriented, Normal sensory, Normal motor, No focal defects, CN II-XII intact, Normal DTR's Psychiatric: Cooperative, Appropriate mood & affect Exam Comments a and ox 3, "i'm here because i had white matter changes in my brain", pres Trump, conversant, appropriate, calm, follows, able to name, repeat, eomi, ou 3- 2mm, mild upgaze paresis, face sym, neck supple, no latter-day tenderness, manriquez to gravity, no clonus Objective Micro and Labs Laboratory Tests Test 09/19/17 05:44 Phenytoin (Dilantin) Level 5.5 Date/Time Source Procedure Growth Status 09/17/17 00:17 Urine Clean Catch Urine Culture - Preliminary <10,000 CFU/ML GRAM NEGATIVE SMITHA Resulted Alejandro Watts MD September 19, 2017 08:23
[2017-09-19] MEDS ORDERED: NIFE90TA2 PO (08:57)
[2017-09-19] MEDS ORDERED: NIFEdipine 90 MG SUSTAINED RELEASE TAB PO SCH (09:00)
[2017-09-19] MEDS ORDERED: POTASSIUM CHLORIDE 10 MEQ CONTROLLED RELEASE TAB PO SCH (09:00)
[2017-09-19] MEDS: ASPIRIN 81 MG CHEW TAB CHEW SCH (09:05)
[2017-09-19] MEDS: CITALOPRAM HYDROBROMIDE 20 MG TAB PO SCH (09:05)
[2017-09-19] MEDS: SODIUM CHLORIDE 0.9% FLUSH 10 ML FLUSH IV FLUSH SCH (09:06)
[2017-09-19] MEDS: lamoTRIgine 25 MG TAB PO SCH (09:06)
--- NOTE | 2017-09-19 09:10 | HHI.PR ---
Subjective Remarks Patient states no pain. Remembers she was admitted due to initial confusion. States that she feels she is back to baseline. She is alert and oriented 4 during my physical exam. She is eating well. She is ambulating. She denies any weakness or numbness at this time. She does want to return to the long-term house. She denies any suicidal ideations. She is not anxious. Objective Vitals Vital Signs Date Time Temp Pulse Resp B/P (MAP) Pulse Ox O2 Delivery O2 Flow Rate FiO2 09/19/17 08:11 97.9 53 18 143/80 (101) 100 09/19/17 04:03 56 09/19/17 04:00 98.9 55 20 167/78 (107) 97 09/19/17 00:02 60 09/19/17 00:00 99.7 59 20 155/73 (100) 96 09/18/17 20:00 97.8 60 17 170/72 (104) 98 09/18/17 19:50 63 09/18/17 16:00 97.7 62 18 157/70 (99) 97 09/18/17 12:00 99.0 56 18 147/68 (94) 97 I/O 09/18/17 09/18/17 09/18/17 09/19/17 09/19/17 09/19/17 07:00 15:00 23:00 07:00 15:00 23:00 Intake Total 1320 ml 240 ml 54 ml 1420 ml Balance 1320 ml 240 ml 54 ml 1420 ml Intake Oral 220 ml 240 ml 320 ml IV Total 1100 ml 54 ml 1100 ml # Voids 3 2 2 # Bowel Movements 0 0 Result Diagram: 09/18/17 0434 09/18/17 0434 Objective Remarks GENERAL: This is a well-nourished, well-developed patient, in no apparent distress. CARDIOVASCULAR: Regular rate and rhythm RESPIRATORY: Clear to auscultation. Breath sounds equal bilaterally. No wheezes , rales, or rhonchi. MUSCULOSKELETAL: Extremities without clubbing, cyanosis, or edema. NEURO: Alert & Oriented x4 to person, place, time, situation. Moves all ext x4 , motor strength 5 out of 5 bilateral upper extremity lower extremities. A/P Problem List: (1) PRES (posterior reversible encephalopathy syndrome) ICD Code: I67.83 - Posterior reversible encephalopathy syndrome Status: Resolved (2) Hypertension ICD Code: I10 - Hypertension Status: Chronic (3) Hypertensive urgency ICD Code: I16.0 - Hypertensive urgency Status: Resolved Assessment and Plan 56-year-old female with history of CAD s/p stent 2, HTN, anxiety, depression, hx of IVDU now clean at long-term house, presents with acute altered mental status Acute Encephalopathy: Likely Posterior Reversible Encephalopathy Syndrome secondary to severe hypertension. BP as high as 221/99 upon arrival. -afebrile, no leukocytosis, ESR wnl, treated possible UTI with IV Rocephin on initial presentation however urinary results showing less than 10,000 gram- negative rods therefore not a true UTI. We will discontinue IV Rocephin at this time. -Ruled out toxic encephalopathy, UDS negative. -Head CT reviewed, no acute findings -Brain MRI showed patchy abnormal T2 prolongation in brain parenchyma in multiple vascular territories; however Head MRA/MRV grossly unremarkable and findings on MRI may represent flow phenomenon. Appreciate neurology's evaluation and consultation and recommendations. Neurology has cleared the patient for discharge to home today. -Abnormal EEG due to moderate background slowing consistent with encephalopathic process, but no epileptiform activity -Monitor Neuro Check and currently alert and oriented 4 with no neurological deficits., Seizure Precautions -Control Blood Pressure, adjusted Procardia to XL 90 mg p.o. daily -Continue aspirin 81mg daily -Continue patient's lamictal (although patient denies hx of seizures), also started on IV fosphenytoin by neurologist with plan to d/c at discharge -Patient advised, and counseled on no driving Hypertensive Urgency with Accelerated Hypertension: BP as high as 221/99 upon arrival. With neurological changes as above. -Discontinue patient's atenolol 50mg daily due to her history of depression on Celexa - increase Procardia 60mg daily to Procardia 90 mg p.o. daily -BP improving, continue to monitor, adjust antihypertensives as needed as an outpatient. Anxiety/Depression: patient's daughter discussed with RN, concerned for depression -continue patient's celexa -consult psychiatry and appreciate recommendations to continue with Celexa. No active signs of suicidal ideation Hypokalemia: K 2.8 upon arrival -given IV KCl boluses and po replacement Abnormal UA: UA with large leuks, WBCs. Patient denies urinary complaints. -discontinue antibiotics, patient has been on antibiotics since 09/17 and completed course -Monitor final urine culture -preliminary only showed less than 10,000 DVT Prophylaxis: Lovenox sq Discharge Planning Discharge to long-term house. Patient medically stable and improved. Problem Qualifiers (1) Hypertension: Qualified Codes: I10 - Essential (primary) hypertension Madina Swain MD September 19, 2017 09:10
--- NOTE | 2017-09-19 09:12 | HHI.DS ---
Discharge Summary Admission Date September 17, 2017 at 02:06 Discharge Date: September 19, 2017 Admitting Diagnosis Altered mental status (1) PRES (posterior reversible encephalopathy syndrome) ICD Code: I67.83 - Posterior reversible encephalopathy syndrome Status: Resolved (2) Hypertension ICD Code: I10 - Hypertension Status: Chronic (3) Hypertensive urgency ICD Code: I16.0 - Hypertensive urgency Status: Resolved Procedures None Brief History - From Admission HPI obtained from admitting physician's history and physical. 56-year-old female with a history of IV drug use, living in a [facility] house, who presents with a 2 day history of altered mental status. Patient apparently left for 4 days, return 2 days ago, however has been sleeping in her room since this time without eating or drinking.. She is very somnolent, however does wake up for exam. Patient tells me she does not have any pain. Denies any chest pain or shortness of breath. She is able to tell me she is in the hospital, however does not know the date or year. History is obtained from chart review. CBC/BMP: 09/18/17 0434 09/18/17 0434 Significant Findings Laboratory Tests Test 09/16/17 23:30 09/17/17 00:17 09/17/17 02:43 09/17/17 16:16 Neutrophils (%) (Auto) 74.4 % (16.0-70.0) Monocytes (%) (Auto) 8.7 % (0.0-8.0) Activated Partial Thromboplast Time 23.4 SEC (24.3-30.1) Aspartate Amino Transf (AST/SGOT) 91 U/L (15-37) Alanine Aminotransferase (ALT/SGPT) 71 U/L (10-53) Potassium Level 2.8 MEQ/L (3.5-5.1) Chloride Level 108 MEQ/L (98-107) Ammonia 44 MCMOL/L (11-32) Total Creatine Kinase 757 U/L (26-192) B-Type Natriuretic Peptide 171 PG/ML (0-100) Thyroid Stimulating Hormone 3rd Gen 0.066 uIU/ML (0.358-3.740) Acetaminophen Level LESS THAN 2.0 MCG/ML Urine Turbidity HAZY (CLEAR) Urine Protein 30 mg/dL (NEG-TRACE) Urine Ketones 10 mg/dL (NEG) Urine Urobilinogen 8.0 MG/DL (LESS THAN Urine Leukocyte Esterase LARGE (NEG) Urine WBC 51 /hpf (0-5) Urine Bacteria RARE /hpf (NONE) Urine Mucus MANY /lpf (OCC) Test 09/18/17 04:34 09/19/17 05:44 Aspartate Amino Transf (AST/SGOT) 52 U/L (15-37) Alanine Aminotransferase (ALT/SGPT) 63 U/L (10-53) Potassium Level 3.2 MEQ/L (3.5-5.1) Chloride Level 109 MEQ/L (98-107) Carbon Dioxide Level 20.7 MEQ/L (21.0-32.0) LDL Cholesterol 135 MG/DL (0-99) Phenytoin (Dilantin) Level 5.5 MCG/ML (10.0-20.0) Imaging Last Impressions Neck Magnetic Resonance Angiography 09/18/17 0000 Signed Impressions: Service Date/Time: Monday, September 18, 2017 08:25 - CONCLUSION: Tandem mild eccentric stenoses involving the proximal left internal carotid artery Kameron Candelario MD Head/Brain Mag Res Venography 09/18/17 0000 Signed Impressions: Service Date/Time: Monday, September 18, 2017 08:25 - CONCLUSION: 1. 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 2. Otherwise, remaining dural sinuses are patent without dural sinus thrombosis. Apparent filling defects on the post contrasted MRI of the brain may represent flow phenomenon. Grayson Anderson MD Head Magnetic Resonance Angiography 09/18/17 0000 Signed Impressions: Service Date/Time: Monday, September 18, 2017 08:25 - CONCLUSION: 1. Unremarkable MRA examination of the [place]. Specifically, no evidence for significant stenosis or large vessel occlusion. Everardo Alvarado MD Abdomen/Pelvis CT 09/17/17 0032 Signed Impressions: Service Date/Time: Sunday, September 17, 2017 01:06 - CONCLUSION: Normal examination. Possible healing fracture medial pubic ramus on the left Chris Lawrence MD Brain MRI 09/17/17 0000 Signed Impressions: Service Date/Time: Sunday, September 17, 2017 12:52 - CONCLUSION: Patchy abnormal T2 prolongation in brain parenchyma in multiple vascular territories bilaterally. Initial additional evaluation with MRI and MRV would be suggested. Kameron Candelario MD Head CT [id number]/16/[id number] Signed Impressions: Service Date/Time: Sunday, September 17, 2017 01:04 - CONCLUSION: Normal examination. Chris Lawrence MD Chest X-Ray [id number]/16/[id number] Signed Impressions: Service Date/Time: Saturday, September 16, 2017 23:42 - CONCLUSION: Normal examination. Chris Lawrence MD PE at Discharge GENERAL: This is a well-nourished, well-developed patient, in no apparent distress. CARDIOVASCULAR: Regular rate and rhythm RESPIRATORY: Clear to auscultation. Breath sounds equal bilaterally. No wheezes , rales, or rhonchi. MUSCULOSKELETAL: Extremities without clubbing, cyanosis, or edema. NEURO: Alert & Oriented x4 to person, place, time, situation. Moves all ext x4 , motor strength 5 out of 5 bilateral upper extremity lower extremities. Hospital Course These are the medical issues addressed during this hospitalization: 56-year-old female with history of CAD s/p stent 2, HTN, anxiety, depression, hx of IVDU now clean at [facility] house, presents with acute altered mental status Acute Encephalopathy: Likely Posterior Reversible Encephalopathy Syndrome secondary to severe hypertension. BP as high as 221/99 upon arrival. -afebrile, no leukocytosis, ESR wnl, treated possible UTI with IV Rocephin on initial presentation however urinary results showing less than 10,000 gram- negative rods therefore not a true UTI. We will discontinue IV Rocephin at this time. -Ruled out toxic encephalopathy, UDS negative. -Head CT reviewed, no acute findings -Brain MRI showed patchy abnormal T2 prolongation in brain parenchyma in multiple vascular territories; however Head MRA/MRV grossly unremarkable and findings on MRI may represent flow phenomenon. Appreciate neurology's Dr. Han'se valuation and consultation and recommendations. -Abnormal EEG due to moderate background slowing consistent with encephalopathic process, but no epileptiform activity -Monitor Neuro Check and currently alert and oriented 4 with no neurological deficits., Seizure Precautions -Control Blood Pressure, adjusted Procardia to XL 90 mg p.o. daily -Continue aspirin 81mg daily -Continue patient's lamictal (although patient denies hx of seizures), also started on IV fosphenytoin by neurologist with plan to d/c at discharge -Patient advised, and counseled on no driving Hypertensive Urgency with Accelerated Hypertension: BP as high as 221/99 upon arrival. With neurological changes as above. -Discontinue patient's atenolol 50mg daily due to her history of depression on Celexa - increase Procardia 60mg daily to Procardia 90 mg p.o. daily -BP improving, continue to monitor, adjust antihypertensives as needed as an outpatient. Anxiety/Depression: patient's daughter discussed with RN, concerned for depression -continue patient's celexa -consult psychiatry and appreciate recommendations to continue with Celexa. No active signs of suicidal ideation Hypokalemia: K 2.8 upon arrival -given IV KCl boluses and po replacement on discharge. DVT Prophylaxis: Lovenox sq Pt Condition on Discharge: Good Discharge Disposition: Discharge Home Discharge Time: <= 30 minutes Discharge Instructions DIET: Follow Instructions for: Heart Healthy Diet Activities you can perform: Regular-No Restrictions Follow up Referrals: PCP Follow-up - 1 Week New Medications: Nifedipine (Nifedipine ER) 90 Mg Tab 90 MG PO DAILY for Blood Pressure Management, #30 TAB Potassium Chloride ER (Klor-Con 10) 10 Meq Tab 10 MEQ PO DAILY for Electrolyte Replacement, #10 TAB Continued Medications: Aspirin (Aspirin) 81 Mg Chew 81 MG CHEW DAILY, TAB 0 Refills Citalopram (Celexa) 20 Mg Tab 30 MG PO DAILY for Control Depression, #30 TAB 0 Refills Ibuprofen (Ibuprofen) 600 Mg Tab 600 MG PO Q6H PRN for Pain/Inflammation, #20 TAB 0 Refills Lamotrigine (Lamotrigine) 25 Mg Tab 50 MG PO BID for Control Seizures, #60 TAB 0 Refills Medroxyprogesterone Inj (Depo-Provera Inj) 150 Mg/Ml Inj 150 MG IM ONCE for Control, #1 VIAL 0 Refills Methocarbamol (Methocarbamol) 500 Mg Tab 500 MG PO QID PRN for PAIN SCALE 1 TO 5, #120 TAB 0 Refills Discontinued Medications: Atenolol (Atenolol) 50 Mg Tab 50 MG PO DAILY for Blood Pressure Management, #30 TAB 0 Refills Hydrocodone-Acetaminophen ([place]) 5 Mg-325 Mg Tab 1 TAB PO Q6H PRN for PAIN, #12 TAB 0 Refills Madina Swain MD September 19, 2017 09:12
[2017-09-19] MEDS ORDERED: KLOR10TA PO (09:15)
[2017-09-19 11:44] VITALS: BP 170/93; PULSE 61; RESP 18; TEMP 98.6; O2SAT 98
== END 2017-09-19 12:21 | disposition home or self-care (01) | DRG 71 ==
LOC: NEPE 22:58 → NEDA 09-17 02:06 → N06B 09-17 04:33
PROVIDERS: ADMIT Family Medicine; ATTEND Family Medicine
DX: I67.83 Posterior reversible encephalopathy syndrome (principal); F33.9 Major depressive disorder, recurrent, unspecified; I10 Essential (primary) hypertension; I16.0 Hypertensive urgency; F19.90 Other psychoactive substance use, unspecified, uncomplicated; I25.10 Atherosclerotic heart disease of native coronary artery without angina pectoris; Z95.5 Presence of coronary angioplasty implant and graft; F41.9 Anxiety disorder, unspecified; E87.6 Hypokalemia; F17.210 Nicotine dependence, cigarettes, uncomplicated; E78.5 Hyperlipidemia, unspecified; R82.99 Other abnormal findings in urine
CPT/HCPCS: 70450; 70544; 70548; 70553; 71045; 74177; 80053; 80061; 80175; 80185; 80307; 81001; 82140; 82550; 82552; 82607; 82746; 83690; 83735; 83880; 84207; 84425; 84439; 84443; 84445; 84480; 84484; 84703; 85025; 85610; 85652; 85730; 86140; 87086; 93005; 95819; 96365; 99285; A9579; G0481; J0696; J3411; J3480; J7030; P9612; Q2009; Q9967

== ENCOUNTER 2017-09-21 23:30 | Emergency (ER) | payer SELFPAY ==
[~2017-09-21 23:30] MED LIST changes: -ASPI-516 CHEW; +ASPI-516 PO; -ASPI1TAB7 PO; -ATEN-102 PO; -ATEN50TA PO; +KLOR10TA PO; -MEDR150P IM; +NIFE90TA2 PO; -NORC5TAB PO; -TRAZ100 PO; -TRAZ100T4 PO
[2017-09-21 23:35] VITALS: PULSE 125; RESP 16; TEMP 99
[2017-09-21] MEDS ORDERED: SODIUM CHLOR 0.9% 1000 ML INJ 1,000 ML IV SCH (23:47)
[2017-09-22] MEDS ORDERED: NALOXONE HCL 2 MG/2 ML VIAL IV PUSH ONE
[2017-09-22] MEDS ORDERED: SODIUM CHLORIDE 0.9% FLUSH 10 ML FLUSH IV FLUSH PRN
[2017-09-22 00:16] VITALS: O2SAT 96
--- NOTE | 2017-09-22 00:17 | RADRPT ---
EXAM DATE/TIME: 09/21/2017 23:48 [facility] COMPARISON: MRI BRAIN W & W/O CONTRAST, September 17, 2017, 12:52. CT BRAIN W/O CONTRAST, September 17, 2017, 1:04. INDICATIONS : Altered mental status. RADIATION DOSE: 56.35 CTDIvol (mGy) MEDICAL HISTORY : Cardiovascular disease. Myocardial infarction. Hepatitis C.ETOH abuse SURGICAL HISTORY : section. Coronary stents ENCOUNTER: Initial ACUITY: 1 day PAIN SCALE: Non-responsive LOCATION: cranial TECHNIQUE: Multiple contiguous axial images were obtained of the head. Using automated exposure control and adj ustment of the mA and/or kV according to patient size, radiation dose was kept as low as reasonably a chievable to obtain optimal diagnostic quality images. DICOM format image data is available electro nically for review and comparison. FINDINGS: CEREBRUM: The ventricles are normal for age. No evidence of midline shift, mass lesion, hemorrhage or acute in farction. No extra-axial fluid collections are seen. The CSF density collection in the medial left t emporal lobe is stable. POSTERIOR FOSSA: The cerebellum and brainstem are intact. The 4th ventricle is midline. The cerebellopontine angle i s unremarkable. EXTRACRANIAL: The visualized portion of the orbits is intact. SKULL: The calvaria is intact. No evidence of skull fracture. CONCLUSION: Stable appearance with no acute hemorrhage, mass or evidence of acute infarction. Corey Lozada MD on September 22, 2017 at 0:13 Board Certified Radiologist. This report was verified electronically.
[2017-09-22 00:32] VITALS: BP 153/75; PULSE 100; RESP 16; O2SAT 100
[2017-09-22 00:39] LABS: AUTOMATED NEUTROPHIL # 6.9 TH/MM3 (1.8-7.7); BASOPHIL # 0.2 TH/MM3 (0-0.2); BASOPHIL % 1.3 % (0.0-2.0); EOSINOPHIL # 0.3 TH/MM3 (0-0.4); EOSINOPHIL % 2.8 % (0.0-4.0); HEMATOCRIT 41.8 % (35.0-46.0); HEMOGLOBIN 14.1 GM/DL (11.6-15.3); LYMPH % 33.2 % (9.0-44.0); MEAN CELL VOLUME 89.7 FL (80.0-100.0); MEAN CORPUSCULAR HEMOGLOBIN 30.1 PG (27.0-34.0); MEAN CORPUSCULAR HGB CONC 33.6 % (32.0-36.0); MEAN PLATELET VOLUME 8.6 FL (7.0-11.0); MONO % 4.7 % (0.0-8.0); MONOCYTE # 0.6 TH/MM3 (0-0.9); PLATELET COUNT 264 TH/MM3 (150-450); RED BLOOD COUNT 4.66 MIL/MM3 (4.00-5.30); RED CELL DISTRIBUTION WIDTH 13.4 % (11.6-17.2); WHITE BLOOD COUNT 11.9 TH/MM3 (4.0-11.0)
[2017-09-22 00:53] LABS: ALKALINE PHOSPHATASE 89 U/L (45-117); TOTAL BILIRUBIN ADULT 0.4 MG/DL (0.2-1.0); TOTAL PROTEIN 7.6 GM/DL (6.4-8.2)
[2017-09-22 00:54] LABS: ALBUMIN 4.1 GM/DL (3.4-5.0); ALT (GPT) 46 U/L (10-53); AST (GOT) 45 U/L (15-37); BICARBONATE 22.1 MEQ/L (21.0-32.0); BLOOD UREA NITROGEN 17 MG/DL (7-18); CALCIUM 8.2 MG/DL (8.5-10.1); CHLORIDE 108 MEQ/L (98-107); CREATININE 0.97 MG/DL (0.50-1.00); GLOMERULAR FILTRATION RATE 60 ML/MIN (>89); GLUCOSE,RANDOM 96 MG/DL (74-106); SODIUM (NA) 140 MEQ/L (136-145)
--- NOTE | 2017-09-22 01:26 | PD ---
HPI Chief Complaint: Seizure Time Seen by Provider: 23:43 Travel History International Travel<30 days: No Contact w/Intl Traveler<30days: No Traveled to known affect area: No History of Present Illness HPI The patient is 56 years old. She arrives by EMS. She was at 711 and evidently lost consciousness with gaze somewhat to the side. She arrives to the ER with no focal neurologic deficit of negative edema stroke scale. 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 History initially limited to that provided by EMS service. PFSH Past Medical History Anxiety: Yes Depression: Yes Cardiac Catheterization: Yes (STENTS X 2) Cardiovascular Problems: Yes Coronary Artery Disease: Yes Diminished Hearing: No Hypertension: Yes Neurologic: Yes Seizures: Yes Tetanus Vaccination: Unknown ?: Not Menopausal: Yes : 1 Para: 1 Past Surgical History Cardiac Surgery: Yes (STENTS) Section: Yes (X 1) Gynecologic Surgery: Yes () Neurologic Surgery: Yes (DISKECTOMY) Tonsillectomy: Yes Other Surgery: Yes Social History Alcohol Use: No (HX OF ETOH ABUSE) Tobacco Use: Yes (1 PPD) Substance Use: Yes (in the past. been in rehab for 9 months) Allergies-Medications (Allergen,Severity, Reaction): Coded Allergies: nitroglycerin (Verified Allergy, Severe, Anaphylaxis, 09/21/17) doxycycline (Verified Adverse Reaction, Intermediate, Shortness of Breath , 09/21/17) minocycline (Verified Adverse Reaction, Intermediate, Shortness of Breath , 09/21/17) tigecycline (Verified Adverse Reaction, Intermediate, Shortness of Breath , 09/21/17) Reported Meds & Prescriptions Reported Meds & Active Scripts Active Klor-Con 10 (Potassium Chloride) 10 Meq Tab 10 Meq PO DAILY Nifedipine ER (Nifedipine) 90 Mg Tab 90 Mg PO DAILY Ibuprofen 600 Mg Tab 600 Mg PO Q6H PRN Reported Methocarbamol 500 Mg Tab 500 Mg PO QID PRN Lamotrigine 25 Mg Tab 50 Mg PO BID Depo-Provera Inj (Medroxyprogesterone Inj) 150 Mg/Ml Inj 150 Mg IM ONCE Celexa (Citalopram Hydrobromide) 20 Mg Tab 30 Mg PO DAILY Aspirin 81 Mg Chew 81 Mg CHEW DAILY Review of Systems Except as stated in HPI: all other systems reviewed are Neg General / Constitutional: No: Fever Physical Exam Narrative GENERAL: 56 yo F, WNWD, AOx3, very sleepy Vital Signs Date Time Temp Pulse Resp B/P (MAP) Pulse Ox O2 Delivery O2 Flow Rate FiO2 09/22/17 01:47 09/22/17 00:32 100 16 153/75 (101) 100 Nasal Cannula 2.00 09/22/17 00:16 96 Nasal Cannula 2.00 09/21/17 23:35 99.0 125 16 SKIN: Warm and dry. HEAD: Atraumatic. Normocephalic. EYES: Pupils pinpoint. EOMI. FREDDIE. ENT: No nasal bleeding or discharge. Mucous membranes pink and moist. NECK: Trachea midline. No JVD. CARDIOVASCULAR: Regular rate and rhythm. RESPIRATORY: No accessory muscle use. Clear to auscultation. Breath sounds equal bilaterally. GASTROINTESTINAL: Abdomen soft, non-tender, nondistended. Hepatic and splenic margins not palpable. MUSCULOSKELETAL: Extremities without clubbing, cyanosis, or edema. No obvious deformities. NEUROLOGICAL: Awake and alert. No obvious cranial nerve deficits. Motor grossly within normal limits. Five out of 5 muscle strength in the arms and legs. Normal speech. PSYCHIATRIC: Appropriate mood and affect; insight and judgment normal. Data Data Last Documented VS Vital Signs Date Time Temp Pulse Resp B/P (MAP) Pulse Ox O2 Delivery O2 Flow Rate FiO2 09/22/17 01:47 09/22/17 00:32 100 16 100 Nasal Cannula 2.00 09/21/17 23:35 99.0 Orders Orders Electrocardiogram (09/21/17 23:47) Ammonia (09/21/17 23:47) Complete Blood Count With Diff (09/21/17 23:47) Comprehensive Metabolic Panel (09/21/17 23:47) Ct Brain W/O Iv Contrast(Rout) (09/21/17 23:47) Blood Glucose (09/21/17 23:47) Ecg Monitoring (09/21/17 23:47) Iv Access Insert/Monitor (09/21/17 23:47) Oximetry (09/21/17 23:47) Naloxone Inj (Narcan Inj) (09/22/17 00:00) Sodium Chloride 0.9% Flush (Ns Flush) (09/22/17 00:00) Sodium Chlor 0.9% 1000 Ml Inj (Ns 1000 M (09/21/17 23:47) Drug Screen, Random Urine (09/21/17 23:47) Alcohol (Ethanol) (09/21/17 23:47) Ed Discharge Order (09/22/17 01:43) Labs Laboratory Tests Test 09/21/17 23:59 09/22/17 01:40 White Blood Count 11.9 TH/MM3 Red Blood Count 4.66 MIL/MM3 Hemoglobin 14.1 GM/DL Hematocrit 41.8 % Mean Corpuscular Volume 89.7 FL Mean Corpuscular Hemoglobin 30.1 PG Mean Corpuscular Hemoglobin Concent 33.6 % Red Cell Distribution Width 13.4 % Platelet Count 264 TH/MM3 Mean Platelet Volume 8.6 FL Neutrophils (%) (Auto) 58.0 % Lymphocytes (%) (Auto) 33.2 % Monocytes (%) (Auto) 4.7 % Eosinophils (%) (Auto) 2.8 % Basophils (%) (Auto) 1.3 % Neutrophils # (Auto) 6.9 TH/MM3 Lymphocytes # (Auto) 4.0 TH/MM3 Monocytes # (Auto) 0.6 TH/MM3 Eosinophils # (Auto) 0.3 TH/MM3 Basophils # (Auto) 0.2 TH/MM3 CBC Comment DIFF FINAL Differential Comment Blood Urea Nitrogen 17 MG/DL Creatinine 0.97 MG/DL Random Glucose 96 MG/DL Total Protein 7.6 GM/DL Albumin 4.1 GM/DL Calcium Level 8.2 MG/DL Alkaline Phosphatase 89 U/L Aspartate Amino Transf (AST/SGOT) 45 U/L Alanine Aminotransferase (ALT/SGPT) 46 U/L Total Bilirubin 0.4 MG/DL Sodium Level 140 MEQ/L Potassium Level 3.9 MEQ/L Chloride Level 108 MEQ/L Carbon Dioxide Level 22.1 MEQ/L Anion Gap 10 MEQ/L Estimat Glomerular Filtration Rate 60 ML/MIN Ammonia 26 MCMOL/L Ethyl Alcohol Level LESS THAN 3 MG/DL Urine Opiates Screen NEG Urine Barbiturates Screen NEG Urine Amphetamines Screen NEG Urine Benzodiazepines Screen NEG Urine Cocaine Screen NEG Urine Cannabinoids Screen NEG MDM Medical Decision Making Medical Screen Exam Complete: Yes Emergency Medical Condition: Yes Medical Record Reviewed: Yes Differential Diagnosis PSA, opioid, benzo, cva, seizure Narrative Course CBC & BMP Diagram 09/21/17 23:59 Total Protein 7.6, Albumin 4.1, Calcium Level 8.2 L, Alkaline Phosphatase 89, Aspartate Amino Transf (AST/SGOT) 45 H, Alanine Aminotransferase (ALT/SGPT) 46, Total Bilirubin 0.4 Ammonia 26 Tox screen negative EtOH < [address] 09/21/17 [id number] Signed Impressions: Service Date/Time: Saturday, September 21, 2017 23:48 - CONCLUSION: Stable appearance with no acute hemorrhage, mass or evidence of acute infarction. Corey Lozada MD Patient received Narcan. Symptoms resolved. Presentation is in keeping with an opioid toxidrome regardless of the urine tox screen which is poorly sensitive for screening synthetic opioids and benzos. Diagnosis Primary Impression: Altered mental status Qualified Codes: R41.82 - Altered mental status, unspecified Additional Impression: Opioid overdose Qualified Codes: T40.2X1A - Poisoning by other opioids, accidental ( unintentional), initial encounter Med/Other Pt SpecificInfo: No Change to Meds Disposition: 01 DISCHARGE HOME Condition: Stable Maxi Lane MD September 22, 2017 01:26
--- NOTE | 2017-09-22 17:12 | EKG ---
Date Performed: 09/21/2017 Time Performed: 23:40:21 PTAGE: 56 years EKG: SINUS TACHYCARDIA NONSPECIFIC ST & T-WAVE ABNORMALITY ABNORMAL RHYTHM ECG PREVIOUS TRACING : 09/16/2017 23.14 Compared to previous tracing, rate faster DOCTOR: Alessandra Morgan Interpretating Date/Time 09/22/2017 17:11:44
== END 2017-09-22 01:48 | disposition home or self-care (01) ==
LOC: NEPE 23:30
DX: R41.82 Altered mental status, unspecified (principal); T40.2X1A Poisoning by other opioids, accidental (unintentional), initial encounter; I10 Essential (primary) hypertension; R94.31 Abnormal electrocardiogram [ECG] [EKG]; F10.10 Alcohol abuse, uncomplicated; Z72.0 Tobacco use
CPT/HCPCS: 70450; 80053; 80307; 82140; 85025; 93005; 96374; 99285; J2310; J7030

== ENCOUNTER 2017-09-24 12:23 | Inpatient (IN) | payer SELFPAY ==
[~2017-09-24] VITALS: Ht 167.6 cm; Wt 56.1 kg
[2017-09-24] MEDS ORDERED: IOHEXOL 350 MG/ML 10 ML VIAL (for RAD DIAG) IVCONTRAST ONE (12:24)
[2017-09-24 12:37] VITALS: BP 115/57; PULSE 94; RESP 16; TEMP 97.5; O2SAT 99
[2017-09-24] MEDS ORDERED: SODIUM CHLOR 0.9% 1000 ML INJ 1,000 ML IV SCH ×2 (12:41→16:31)
[2017-09-24] MEDS ORDERED: ONDANSETRON ODT 4 MG TAB PO ONE (12:45)
[2017-09-24] MEDS ORDERED: SODIUM CHLORIDE 0.9% FLUSH 10 ML FLUSH IV FLUSH PRN ×2 (12:45→16:45)
--- NOTE | 2017-09-24 12:45 | PD ---
HPI Chief Complaint: Abdominal Pain Time Seen by Provider: 12:31 Travel History International Travel<30 days: No Contact w/Intl Traveler<30days: No Traveled to known affect area: No History of Present Illness HPI This is a 56-year-old female who presents via EMS for evaluation of abdominal pain. Symptoms started this morning. She reports several episodes of diarrhea today as well. She endorses nausea. Denies fevers chills, dysuria, vaginal bleeding or discharge, flank pain, chest pain or shortness of breath, cough or congestion. No history of abdominal surgery. Denies any dietary changes. Per chart review the patient has been seen here twice this week for evaluation of altered mental status. She is currently living at [facility] which she reports is a sober living house. No other complaints at this time. PFSH Past Medical History Anxiety: Yes Depression: Yes Cardiac Catheterization: Yes (STENTS X 2) Cardiovascular Problems: Yes Coronary Artery Disease: Yes Diminished Hearing: No Hypertension: Yes Neurologic: Yes Seizures: Yes ?: Not Menopausal: Yes : 1 Para: 1 Past Surgical History Cardiac Surgery: Yes (STENTS) Section: Yes (X 1) Gynecologic Surgery: Yes () Neurologic Surgery: Yes (DISKECTOMY) Tonsillectomy: Yes Other Surgery: Yes Social History Alcohol Use: Yes (HX OF ETOH ABUSE) Tobacco Use: Yes (1 PPD) Substance Use: Yes (in the past. been in rehab for 9 months) Allergies-Medications (Allergen,Severity, Reaction): Coded Allergies: nitroglycerin (Verified Allergy, Severe, Anaphylaxis, 09/24/17) doxycycline (Verified Adverse Reaction, Intermediate, Shortness of Breath , 09/24/17) minocycline (Verified Adverse Reaction, Intermediate, Shortness of Breath , 09/24/17) tigecycline (Verified Adverse Reaction, Intermediate, Shortness of Breath , 09/24/17) Reported Meds & Prescriptions Reported Meds & Active Scripts Active Klor-Con 10 (Potassium Chloride) 10 Meq Tab 10 Meq PO DAILY Nifedipine ER (Nifedipine) 90 Mg Tab 90 Mg PO DAILY Ibuprofen 600 Mg Tab 600 Mg PO Q6H PRN Reported Methocarbamol 500 Mg Tab 500 Mg PO QID PRN Lamotrigine 25 Mg Tab 50 Mg PO BID Depo-Provera Inj (Medroxyprogesterone Inj) 150 Mg/Ml Inj 150 Mg IM ONCE Celexa (Citalopram Hydrobromide) 20 Mg Tab 30 Mg PO DAILY Aspirin 81 Mg Chew 81 Mg PO DAILY Review of Systems Except as stated in HPI: all other systems reviewed are Neg Physical Exam Narrative GENERAL: Well-developed well-nourished female no acute distress SKIN: Warm and dry. HEAD: Atraumatic. Normocephalic. EYES: Pupils equal and round. No scleral icterus. No injection or drainage. ENT: No nasal bleeding or discharge. Mucous membranes pink and moist. NECK: Trachea midline. No JVD. CARDIOVASCULAR: Regular rate and rhythm. No murmur appreciated. RESPIRATORY: No accessory muscle use. Clear to auscultation. Breath sounds equal bilaterally. GASTROINTESTINAL: Abdomen soft, tender to palpation right lower quadrant without guarding. MUSCULOSKELETAL: No obvious deformities. No clubbing. No cyanosis. No edema. NEUROLOGICAL: Awake and alert. No obvious cranial nerve deficits. Motor grossly within normal limits. Normal speech. Data Data Last Documented VS Vital Signs Date Time Temp Pulse Resp B/P (MAP) Pulse Ox O2 Delivery O2 Flow Rate FiO2 09/24/17 15:08 82 14 109/58 (75) 95 Room Air 09/24/17 12:37 97.5 Orders Orders Complete Blood Count With Diff (09/24/17 12:41) Comprehensive Metabolic Panel (09/24/17 12:41) Lipase (09/24/17 12:41) Urinalysis - C+S If Indicated (09/24/17 12:41) Ct Abd/Pel W Iv Contrast(Rout) (09/24/17 12:41) Iv Access Insert/Monitor (09/24/17 12:41) Ecg Monitoring (09/24/17 12:41) Oximetry (09/24/17 12:41) Sodium Chlor 0.9% 1000 Ml Inj (Ns 1000 M (09/24/17 12:41) Sodium Chloride 0.9% Flush (Ns Flush) (09/24/17 12:45) Ondansetron Odt (Zofran Odt) (09/24/17 12:45) Lactic Acid Sepsis Protocol (09/24/17 13:29) Blood Culture (09/24/17 13:29) Act Partial Throm Time (Ptt) (09/24/17 13:41) Prothrombin Time / Inr (Pt) (09/24/17 13:41) Potassium Chlor 10 Meq Premix (Kcl 10 Me (09/24/17 14:15) Electrocardiogram (09/24/17 ) Iohexol 350 Inj (Omnipaque 350 Inj) (09/24/17 12:24) Levofloxacin 500 Mg Premix Inj (Levaquin (09/24/17 15:15) Metronidazole 500 Mg Inj (Flagyl 500 Mg (09/24/17 15:15) Levofloxacin 750 Mg Premix Inj (Levaquin (09/24/17 15:15) Potassium Chloride (Kcl) (09/24/17 15:15) Labs Laboratory Tests Test 09/24/17 13:09 09/24/17 13:40 09/24/17 14:10 09/24/17 15:00 White Blood Count 23.0 TH/MM3 Red Blood Count 4.15 MIL/MM3 Hemoglobin 12.3 GM/DL Hematocrit 36.4 % Mean Corpuscular Volume 87.7 FL Mean Corpuscular Hemoglobin 29.8 PG Mean Corpuscular Hemoglobin Concent 33.9 % Red Cell Distribution Width 13.1 % Platelet Count 221 TH/MM3 Mean Platelet Volume 7.9 FL Neutrophils (%) (Auto) 93.2 % Lymphocytes (%) (Auto) 1.8 % Monocytes (%) (Auto) 4.6 % Eosinophils (%) (Auto) 0.1 % Basophils (%) (Auto) 0.3 % Neutrophils # (Auto) 21.4 TH/MM3 Lymphocytes # (Auto) 0.4 TH/MM3 Monocytes # (Auto) 1.1 TH/MM3 Eosinophils # (Auto) 0.0 TH/MM3 Basophils # (Auto) 0.1 TH/MM3 CBC Comment DIFF FINAL Differential Comment Blood Urea Nitrogen 8 MG/DL Creatinine 0.51 MG/DL Random Glucose 126 MG/DL Total Protein 6.2 GM/DL Albumin 3.0 GM/DL Calcium Level 8.2 MG/DL Alkaline Phosphatase 77 U/L Aspartate Amino Transf (AST/SGOT) 26 U/L Alanine Aminotransferase (ALT/SGPT) 26 U/L Total Bilirubin 0.6 MG/DL Sodium Level 136 MEQ/L Potassium Level 2.9 MEQ/L Chloride Level 104 MEQ/L Carbon Dioxide Level 23.2 MEQ/L Anion Gap 9 MEQ/L Estimat Glomerular Filtration Rate 126 ML/MIN Lipase 32 U/L Prothrombin Time 10.8 SEC Prothromb Time International Ratio 1.1 RATIO Activated Partial Thromboplast Time 29.8 SEC Lactic Acid Level 1.0 mmol/L MDM Medical Decision Making Medical Screen Exam Complete: Yes Emergency Medical Condition: Yes Medical Record Reviewed: Yes Differential Diagnosis UTI, appendicitis, ovarian cyst, ovarian torsion, colitis, gastroenteritis Narrative Course 56-year-old female with 1 day history of nausea, diarrhea, right lower quadrant abdominal pain. Plan is for lab work, CT abdomen and pelvis, urinalysis. She was given IV fluids. Lab work notable for WBC count of 23 with 93% neutrophils, lactic acid and blood cultures have been added on. Potassium is 2.9, 10 mEq IV potassium chloride and 40 mg oral potassium chloride have been ordered. CT abdomen and pelvis reveals CONCLUSION: Colitis. Patchy pulmonary infiltrates. Calcified uterine fibroid. These findings are new in comparison to a CT of the abdomen and pelvis performed 1 week ago. Given her profound leukocytosis, plan is to admit her for IV antibiotics. She will be given IV Flagyl as well as Levaquin for gram- negative coverage as well as coverage for potential pneumonia. Discussed with Dr. Maier who is agreeable with admission to Dr. Guerra. Diagnosis Primary Impression: Colitis Additional Impressions: Pneumonia Leukocytosis Hypokalemia Admitting Information Admitting Physician Requests: Admit Bright May September 24, 2017 12:45
[2017-09-24 13:19] LABS: AUTOMATED NEUTROPHIL # 21.4 TH/MM3 (1.8-7.7); BASOPHIL # 0.1 TH/MM3 (0-0.2); BASOPHIL % 0.3 % (0.0-2.0); EOSINOPHIL % 0.1 % (0.0-4.0); HEMATOCRIT 36.4 % (35.0-46.0); HEMOGLOBIN 12.3 GM/DL (11.6-15.3); LYMPH % 1.8 % (9.0-44.0); LYMPHOCYTE # 0.4 TH/MM3 (1.0-4.8); MEAN CELL VOLUME 87.7 FL (80.0-100.0); MEAN CORPUSCULAR HEMOGLOBIN 29.8 PG (27.0-34.0); MEAN CORPUSCULAR HGB CONC 33.9 % (32.0-36.0); MEAN PLATELET VOLUME 7.9 FL (7.0-11.0); MONO % 4.6 % (0.0-8.0); MONOCYTE # 1.1 TH/MM3 (0-0.9); NEUT % 93.2 % (16.0-70.0); PLATELET COUNT 221 TH/MM3 (150-450); RED BLOOD COUNT 4.15 MIL/MM3 (4.00-5.30); RED CELL DISTRIBUTION WIDTH 13.1 % (11.6-17.2)
[2017-09-24 13:52] LABS: ALKALINE PHOSPHATASE 77 U/L (45-117); ALT (GPT) 26 U/L (10-53); AST (GOT) 26 U/L (15-37); BICARBONATE 23.2 MEQ/L (21.0-32.0); BLOOD UREA NITROGEN 8 MG/DL (7-18); CALCIUM 8.2 MG/DL (8.5-10.1); CHLORIDE 104 MEQ/L (98-107); CREATININE 0.51 MG/DL (0.50-1.00); GLOMERULAR FILTRATION RATE 126 ML/MIN (>89); GLUCOSE,RANDOM 126 MG/DL (74-106); SODIUM (NA) 136 MEQ/L (136-145); TOTAL BILIRUBIN ADULT 0.6 MG/DL (0.2-1.0); TOTAL PROTEIN 6.2 GM/DL (6.4-8.2)
[2017-09-24] MEDS ORDERED: POTASSIUM CHLOR 10 MEQ PREMIX 100 ML IV ONE (14:15)
[2017-09-24 14:38] LABS: INTERNATIONAL NORMALIZED RATIO 1.1 RATIO; PROTHROMBIN TIME - PATIENT 10.8 SEC (9.8-11.6)
--- NOTE | 2017-09-24 14:59 | RADRPT ---
EXAM DATE/TIME: 09/24/2017 14:27 This report includes an Addendum and supersedes previous reports for this exam. [facility] COMPARISON: CT ABDOMEN & PELVIS W CONTRAST, September 17, 2017, 1:06. INDICATIONS : Patient complains of abdominal pain. IV CONTRAST: 80 cc Omnipaque 350 (iohexol) IV ORAL CONTRAST: No oral contrast ingested. RADIATION DOSE: 6.64 CTDIvol (mGy) MEDICAL HISTORY : Cardiovascular disease. Hepatitis C. Seizures. SURGICAL HISTORY : None. ENCOUNTER: Initial ACUITY: 1 day PAIN SCALE: 2/10 LOCATION: abdomen TECHNIQUE: Volumetric scanning of the abdomen and pelvis was performed. Using automated exposure control and ad justment of the mA and/or kV according to patient size, radiation dose was kept as low as reasonably achievable to obtain optimal diagnostic quality images. DICOM format image data is available electro nically for review and comparison. FINDINGS: There are patchy ground glass infiltrates now seen in the lingula, right middle lobe and lower lobes. No pleural or pericardial effusions are seen. Liver, gallbladder, spleen, pancreas, adrenal glands, bilateral kidneys are normal in appearance. Calcified uterine fibroid at the fundus. Urinary bladder unremarkable. The large bowel is abnormal which demonstrates abnormal circumferential bowel wall thic kening from the proximal descending colon, the entire transverse colon and ascending colon with peric olonic stranding present. This is characteristic of colitis. Small bowel unremarkable. The osseous st ructures are intact. CONCLUSION: Colitis. Patchy pulmonary infiltrates. Calcified uterine fibroid. Salbador Villafana MD on September 24, 2017 at 14:51 Board Certified Radiologist. This report was verified electronically. ADDENDUM: COMPARISON: CT BRAIN W/O CONTRAST, September 21, 2017, 23:48. We are asked to comment on the mesenteric vasculature. The examination does demonstrate satisfactory visualization of the celiac axis, the SMA and the MAUREEN. All 3 vessels are well-visualized proximally a nd appear widely patent. Maxi Brush MD on September 24, 2017 at 16:38 Board Certified Radiologist. This report was verified electronically.
[2017-09-24 15:08] VITALS: BP 109/58; PULSE 82; RESP 14; O2SAT 95
[2017-09-24] MEDS ORDERED: LEVOFLOXACIN 500 MG PREMIX INJ 100 ML IV ONE (15:15)
[2017-09-24] MEDS ORDERED: POTASSIUM CHLORIDE 20 MEQ CONTROLLED RELEASE TAB PO ONE (15:15)
[2017-09-24] MEDS ORDERED: metroNIDAZOLE 500 MG INJ 100 ML IV ONE (15:15)
[2017-09-24] MEDS ORDERED: LEVOFLOXACIN 750 MG PREMIX INJ 150 ML IV ONE (15:15)
[2017-09-24 15:51] LABS: BILIRUBIN, URINE NEG (NEG); BLOOD, URINE NEG (NEG); GLUCOSE,URINE NEG (NEG); KETONE, URINE NEG (NEG); MUCUS URINE MOD /lpf (OCC); NITRITE,URINE NEG (NEG); PH, URINE 6.5 (5.0-8.5); URINE COLOR YELLOW (YELLW/STRAW); URINE LEUKOCYTE ESTERASE NEG (NEG)
[2017-09-24] MEDS ORDERED: NALOXONE HCL 0.4 MG/ML AMP IV PUSH PRN (16:45)
[2017-09-24] MEDS ORDERED: LORazepam 2 MG/ML VIAL IV PUSH PRN ×4 (16:45)
[2017-09-24] MEDS ORDERED: LORazepam 2 MG TAB PO PRN (16:45)
[2017-09-24] MEDS ORDERED: FLUMAZENIL 0.5 MG/5 ML VIAL IV PUSH PRN (16:45)
[2017-09-24] MEDS ORDERED: LORazepam 1 MG TAB PO PRN (16:45)
[2017-09-24] MEDS ORDERED: MORPHINE SULFATE 4 MG/ML INJ IV PUSH PRN (16:45)
[2017-09-24] MEDS ORDERED: ACETAMINOPHEN 650 MG SUPP RECTAL PRN (17:00)
--- NOTE | 2017-09-24 17:01 | RADRPT ---
EXAM DATE/TIME: 09/24/2017 16:01 [facility] COMPARISON: CT THORAX W/O CONTRAST, June 29, 2017, 17:05. CHEST SINGLE AP, September 16, 2017, 23:42. CHEST PA & LAT, June 03, 2016, 13:25. INDICATIONS : Short of breath,chest pain. MEDICAL HISTORY : None. SURGICAL HISTORY : None. ENCOUNTER: Initial ACUITY: 1 day PAIN SCORE: 4/10 LOCATION: Bilateral chest FINDINGS: Minimal central patchy perihilar opacities bilaterally. Cardiomediastinal contours within normal limi ts. Bony thorax is intact. CONCLUSION: 1. Minimal perihilar opacities consistent with central pulmonary vascular congestion pattern. Everardo Alvarado MD on September 24, 2017 at 16:55 Board Certified Radiologist. This report was verified electronically.
--- NOTE | 2017-09-24 17:36 | HHI.HP ---
HPI Service Family Medicine Primary Care Physician Unknown Admission Diagnosis Hypokalemia, colitis, leukocytosis, pneumonia Diagnoses: International Travel<30 Days: No Contact w/Intl Traveler<30days: No Known Affected Area: No History of Present Illness 56-year-old female with CAD status post stent 2, anxiety, depression, history of IV drug use, and recent encephalopathy presents to the ED via EMS for abdominal pain. She states that she had lower abdominal pain that started yesterday evening. She describes it as cramping, intermittent with no radiation. She rates the pain as 5 out of 10. She also states that she has been having watery, nonbloody diarrhea for the past 5 days. She endorses nausea but no vomiting. She states that she has had a 20 pound weight loss in the past month. She associates the weight loss with stress. She denies fevers and night sweats. She states that her abdominal pain is not related to food. She has not had a colonoscopy in the past. She denies chest pain, headache, shortness of breath, cough, and dysuria. She denies suicidal ideation. She was living at the [facility]. She states that as of today she is homeless. Patient has history of possible seizures on Lamictal. She reports not taking Lamictal. She states that she was not able to pick it up. She is not compliant with any of her medications. She denies recent seizures, tongue biting, loss of bowel and bladder control. (Noemi Orellana MD R1) Review of Systems Constitutional: COMPLAINS OF: Weight loss, DENIES: Fever, Night Sweats Ears, nose, mouth, throat: DENIES: Running Nose Respiratory: DENIES: Cough, Wheezing Cardiovascular: DENIES: Chest pain Gastrointestinal: COMPLAINS OF: Abdominal pain, Diarrhea, Nausea, DENIES: Black stools, Bloody stools, Vomiting Genitourinary: DENIES: Dysuria Musculoskeletal: DENIES: Muscle aches Integumentary: DENIES: Rash Hematologic/lymphatic: DENIES: Lymphadenopathy Neurologic: DENIES: Headache, Seizures Psychiatric: DENIES: Depression, Hallucinations, Suicidal Ideation (Noemi Orellana MD R1) Past Family Social History Past Medical History History of coronary artery disease status post stenting 2 Hypertension Anxiety Depression Possible seizure disorder on Lamictal Past Surgical History Cardiac catheterization with stenting x2 Reported Medications Reported Meds & Active Scripts Active Klor-Con 10 (Potassium Chloride) 10 Meq Tab 10 Meq PO DAILY Nifedipine ER (Nifedipine) 90 Mg Tab 90 Mg PO DAILY Ibuprofen 600 Mg Tab 600 Mg PO Q6H PRN Reported Methocarbamol 500 Mg Tab 500 Mg PO QID PRN Lamotrigine 25 Mg Tab 50 Mg PO BID Depo-Provera Inj (Medroxyprogesterone Inj) 150 Mg/Ml Inj 150 Mg IM ONCE Celexa (Citalopram Hydrobromide) 20 Mg Tab 30 Mg PO DAILY Aspirin 81 Mg Chew 81 Mg PO DAILY (Noemi Orellana MD R1) Allergies: Coded Allergies: nitroglycerin (Verified Allergy, Severe, Anaphylaxis, 09/24/17) doxycycline (Verified Adverse Reaction, Intermediate, Shortness of Breath , 09/24/17) minocycline (Verified Adverse Reaction, Intermediate, Shortness of Breath , 09/24/17) tigecycline (Verified Adverse Reaction, Intermediate, Shortness of Breath , 09/24/17) Family History Patient reports drug addiction in family. Social History She reports that she is homeless as of today. She reports living at [facility]. Patient reports smoking 2 packs per day for the past 10 years Patient denies alcohol use Patient denies IV drug use, however per chart review patient has a history of multiple drug abuse, IV drug use. She has been in rehab for the past 9 months. (Noemi Orellana MD R1) Physical Exam Vital Signs Vital Signs Date Time Temp Pulse Resp B/P (MAP) Pulse Ox O2 Delivery O2 Flow Rate FiO2 09/24/17 15:08 82 14 109/58 (75) 95 Room Air 09/24/17 13:39 (76) Room Air 09/24/17 12:37 97.5 94 16 115/57 (76) 99 Room Air Physical Exam GENERAL: Thin female, sleepy, in no acute distress. Difficult to ask questions. SKIN: No rashes, ecchymoses or lesions. Cool and dry. HEAD: Atraumatic. Normocephalic. No temporal or scalp tenderness. EYES: Pupils equal round and reactive. Extraocular motions intact. No scleral icterus. No injection or drainage. ENT: Nose without bleeding, purulent drainage or septal hematoma. Throat without erythema, tonsillar hypertrophy or exudate. Uvula midline. Airway patent. NECK: Trachea midline. No JVD or lymphadenopathy. Supple, nontender, no meningeal signs. CARDIOVASCULAR: Regular rate and rhythm without murmurs, gallops, or rubs. RESPIRATORY: Clear to auscultation. Breath sounds equal bilaterally. No wheezes , rales, or rhonchi. GASTROINTESTINAL: Abdomen soft, moderate tenderness in the lower abdominal quadrant, nondistended. No hepato-splenomegaly, or palpable masses. No guarding. MUSCULOSKELETAL: Extremities without clubbing, cyanosis, or edema. No joint tenderness, effusion, or edema noted. No calf tenderness. Negative Homans sign bilaterally. NEUROLOGICAL: Awake and sleepy. Normal speech. Laboratory Laboratory Tests Test 09/24/17 13:09 09/24/17 13:40 09/24/17 14:10 09/24/17 15:00 White Blood Count 23.0 Red Blood Count 4.15 Hemoglobin 12.3 Hematocrit 36.4 Mean Corpuscular Volume 87.7 Mean Corpuscular Hemoglobin 29.8 Mean Corpuscular Hemoglobin Concent 33.9 Red Cell Distribution Width 13.1 Platelet Count 221 Mean Platelet Volume 7.9 Neutrophils (%) (Auto) 93.2 Lymphocytes (%) (Auto) 1.8 Monocytes (%) (Auto) 4.6 Eosinophils (%) (Auto) 0.1 Basophils (%) (Auto) 0.3 Neutrophils # (Auto) 21.4 Lymphocytes # (Auto) 0.4 Monocytes # (Auto) 1.1 Eosinophils # (Auto) 0.0 Basophils # (Auto) 0.1 CBC Comment DIFF FINAL Differential Comment Blood Urea Nitrogen 8 Creatinine 0.51 Random Glucose 126 Total Protein 6.2 Albumin 3.0 Calcium Level 8.2 Alkaline Phosphatase 77 Aspartate Amino Transf (AST/SGOT) 26 Alanine Aminotransferase (ALT/SGPT) 26 Total Bilirubin 0.6 Sodium Level 136 Potassium Level 2.9 Chloride Level 104 Carbon Dioxide Level 23.2 Anion Gap 9 Estimat Glomerular Filtration Rate 126 Lipase 32 Prothrombin Time 10.8 Prothromb Time International Ratio 1.1 Activated Partial Thromboplast Time 29.8 Lactic Acid Level 1.0 Urine Color YELLOW Urine Turbidity CLEAR Urine pH 6.5 Urine Specific [place] GREATER THAN 1.050 Urine Protein 30 Urine Glucose (UA) NEG Urine Ketones NEG Urine Occult Blood NEG Urine Nitrite NEG Urine Bilirubin NEG Urine Urobilinogen LESS THAN 2.0 Urine Leukocyte Esterase NEG Urine RBC 3 Urine WBC 2 Urine Mucus MOD Microscopic Urinalysis Comment CULT NOT INDICATED Date/Time Source Procedure Growth Status 09/24/17 14:10 Blood Peripheral Aerobic Blood Culture Pending Received 09/24/17 14:10 Blood Peripheral Anaerobic Blood Culture Pending Received (Noemi Orellana MD R1) Result Diagram: 09/24/17 1309 09/24/17 1309 Imaging Last Impressions Abdomen/Pelvis CT 09/24/17 1241 Signed Impressions: Service Date/Time: Sunday, September 24, 2017 14:27 - CONCLUSION: Colitis. Patchy pulmonary infiltrates. Calcified uterine fibroid. Salbador Villafana MD ADDENDUM: COMPARISON: CT BRAIN W/O CONTRAST, September 21, 2017, 23:48. We are asked to comment on the mesenteric vasculature. The examination does demonstrate satisfactory visualization of the celiac axis, the SMA and the MAUREEN. All 3 vessels are well-visualized proximally and appear widely patent. Maxi Brush MD Chest X-Ray 09/24/17 0000 Signed Impressions: Service Date/Time: Sunday, September 24, 2017 16:01 - CONCLUSION: 1. Minimal perihilar opacities consistent with central pulmonary vascular congestion pattern. Everardo Alvarado MD (Noemi Orellana MD R1) Septic Shock Reassessment Septic shock perfusion: reassessment completed (Noemi Orellana MD R1) Caprini VTE Risk Assessment Caprini VTE Risk Assessment: Mod/High Risk (score >= 2) Caprini Risk Assessment Model Point Value = 1 Point Value = 2 Point Value = 3 Point Value = 5 Age 41-60 Minor surgery BMI > 25 kg/m2 Swollen legs Varicose veins or History of unexplained or recurrent spontaneous Oral contraceptives or hormone replacement Sepsis (< 1 month) Serious lung disease, including pneumonia (< 1 month) Abnormal pulmonary function Acute myocardial infarction Congestive heart failure (< 1 month) History of inflammatory bowel disease Medical patient at bed rest Age 61-74 Arthroscopic surgery Major open surgery (> 45 min) Laparoscopic surgery (> 45 min) Malignancy Confined to bed (> 72 hours) Immobilizing plaster cast Central venous access Age >= 75 History of VTE Family history of VTE Factor V Leiden Prothrombin [id number] Lupus anticoagulant Anticardiolipin antibodies Elevated serum homocysteine Heparin-induced thrombocytopenia Other congenital or acquired thrombophilia Stroke (< 1 month) Elective arthroplasty Hip, pelvis, or leg fracture Acute spinal cord injury (< 1 month) Prophylaxis Regimen Total Risk Factor Score Risk Level Prophylaxis Regimen 0-1 Low Early ambulation 2 Moderate Order ONE of the following: *Sequential Compression Device (SCD) *Heparin 5000 units SQ BID 3-4 Higher Order ONE of the following medications: *Heparin 5000 units SQ TID *Enoxaparin/Lovenox 40 mg SQ daily (WT < 150 kg, CrCl > 30 mL/min) *Enoxaparin/Lovenox 30 mg SQ daily (WT < 150 kg, CrCl > 10-29 mL/min) *Enoxaparin/Lovenox 30 mg SQ BID (WT < 150 kg, CrCl > 30 mL/min) AND/OR *Sequential Compression Device (SCD) 5 or more Highest Order ONE of the following medications: *Heparin 5000 units SQ TID (Preferred with Epidurals) *Enoxaparin/Lovenox 40 mg SQ daily (WT < 150 kg, CrCl > 30 mL/min) *Enoxaparin/Lovenox 30 mg SQ daily (WT < 150 kg, CrCl > 10-29 mL/min) *Enoxaparin/Lovenox 30 mg SQ BID (WT < 150 kg, CrCl > 30 mL/min) AND *Sequential Compression Device (SCD) (Noemi Orellana MD R1) Assessment and Plan Assessment and Plan 56-year-old female with CAD status post stent 2, anxiety, depression, history of IV drug use, and recent encephalopathy presents to the ED via EMS for abdominal pain. Admitted for SIRS, further management, and workup. Code Status She states that she has a DNR Discussed Condition With Dr. Guerra and Dr. Maier (Noemi Orellana MD R1) Problem List: (1) SIRS (systemic inflammatory response syndrome) ICD Codes: R65.10 - Systemic inflammatory response syndrome (SIRS) of non- infectious origin without acute organ dysfunction Status: Acute Plan: Patient meets SIRS criteria upon admission due to tachycardia and elevated white blood cell count and known source of infection See plan as below (2) Colitis ICD Codes: K52.9 - Noninfective gastroenteritis and colitis, unspecified Status: Acute Plan: 1 day history of abdominal pain and 5 day history of nonbloody, watery diarrhea. Colitis versus GI bleed versus mesenteric ischemia Abdominal CT demonstrates colitis, patchy pulmonary infiltrates, calcified uterine fibroid, celiac axis, the SMA, and the MAUREEN are well visualized approximately and appears widely patent. White count elevated at 23 Hemoccult-positive, performed in the ED C. difficile, Giardia, Cryptosporidium, stool leukocytes, stool cultures ordered N.p.o. IV fluids 70mls/hr- below maintenance rate due to vascular congestion on CXR and possible CHF NG tube Protonix 40 IV every 12h Patient received Flagyl and Levaquin in the ED We will continue patient on Flagyl 500 mg IV every 8 hours We will start Cipro 400 mg IV every 12h GI consulted, appreciate recommendations (3) Abnormal CXR (chest x-ray) ICD Codes: R93.8 - Abnormal findings on diagnostic imaging of other specified body structures Plan: CT positive for pulmonary infiltrates Chest x-ray demonstrates highly hilar opacities consistent with central pulmonary vascular congestion Possible congestive heart failure BNP pending 2D echo complete with Doppler ordered Incentive spirometry Patient not requiring oxygen at this time (4) Hypokalemia ICD Codes: E87.6 - Hypokalemia Status: Acute Plan: Potassium of 2.9 Patient received 40 mEq p.o. in the ED will trend with BMP every 6 hours (5) History of drug use ICD Codes: Z87.898 - Personal history of other specified conditions Plan: Urine drug screen pending Ethanol level ordered 2D echo complete with Doppler ordered Hepatitis profile ordered (6) Nutrition, metabolism, and development symptoms ICD Codes: R63.8 - Other symptoms and signs concerning food and fluid intake Plan: Diet: N.p.o. Fluids:70 mls per hour normal saline Electrolytes: Trend BMP every 6 hours Monitor I's and O's, vitals every 4 Patient on seizure precautions CIWA protocol Case management consulted (Noemi Orellana MD R1) Problem List: (1) SIRS (systemic inflammatory response syndrome) ICD Codes: R65.10 - Systemic inflammatory response syndrome (SIRS) of non- infectious origin without acute organ dysfunction Status: Acute Plan: Patient meets SIRS criteria upon admission due to tachycardia and elevated white blood cell count and known source of infection See plan as below (2) Colitis ICD Codes: K52.9 - Noninfective gastroenteritis and colitis, unspecified Status: Acute Plan: 1 day history of abdominal pain and 5 day history of nonbloody, watery diarrhea. Colitis versus GI bleed versus mesenteric ischemia Abdominal CT demonstrates colitis, patchy pulmonary infiltrates, calcified uterine fibroid, celiac axis, the SMA, and the MAUREEN are well visualized approximately and appears widely patent. Spoke with radiology, who did not believe this is ischemic in nature. White count elevated at 23 Hemoccult-positive, performed in the ED C. difficile, Giardia, Cryptosporidium, stool leukocytes, stool cultures ordered N.p.o. IV fluids 70mls/hr- below maintenance rate due to vascular congestion on CXR and possible CHF NG tube Protonix 40 IV every 12h Patient received Flagyl and Levaquin in the ED We will continue patient on Flagyl 500 mg IV every 8 hours We will start Cipro 400 mg IV every 12h GI consulted, appreciate recommendations (3) Abnormal CXR (chest x-ray) ICD Codes: R93.8 - Abnormal findings on diagnostic imaging of other specified body structures Plan: CT positive for pulmonary infiltrates Chest x-ray demonstrates highly hilar opacities consistent with central pulmonary vascular congestion Possible congestive heart failure BNP pending 2D echo complete with Doppler ordered Incentive spirometry Patient not requiring oxygen at this time (4) Hypokalemia ICD Codes: E87.6 - Hypokalemia Status: Acute Plan: Potassium of 2.9 Patient received 40 mEq p.o. in the ED will trend with BMP every 6 hours (5) History of drug use ICD Codes: Z87.898 - Personal history of other specified conditions Plan: Urine drug screen pending Ethanol level ordered 2D echo complete with Doppler ordered Hepatitis profile ordered Counseled patient on cessation of drug use (6) Nutrition, metabolism, and development symptoms ICD Codes: R63.8 - Other symptoms and signs concerning food and fluid intake Plan: Diet: N.p.o. Fluids:70 mls per hour normal saline Electrolytes: Trend BMP every 6 hours Monitor I's and O's, vitals every 4 Patient on seizure precautions CIWA protocol Case management consulted (Sachin Guerra MD) Physician Certification 2 Midnight Certification Type: Admission for Inpatient Services Order for Inpatient Services The services are ordered in accordance with Medicare regulations or non- Medicare payer requirements, as applicable. In the case of services not specified as inpatient-only, they are appropriately provided as inpatient services in accordance with the 2-midnight benchmark. Estimated LOS (days): 2 2 days is the estimated time the patient will need to remain in the hospital, assuming treatment plan goals are met and no additional complications. Post-Hospital Plan: Home (Noemi Orellana MD R1) Noemi Orellana MD R1 September 24, 2017 17:35 Sachin Guerra MD September 25, 2017 12:49
[2017-09-24] MEDS: PANTOPRAZOLE SODIUM 40 MG VIAL IV PUSH SCH ×2 (17:53→22:42)
[2017-09-24] MEDS: NICOTINE 14 MG/24 HR PATCH T-DERMAL SCH (17:56)
[2017-09-24] MEDS ORDERED: ONDANSETRON ODT 4 MG TAB PO PRN (18:00)
[2017-09-24 18:30] VITALS: BP 92/50; PULSE 89; RESP 16; TEMP 98.7; O2SAT 95
[2017-09-24 19:35] VITALS: BP 96/53; PULSE 88; RESP 16; TEMP 98.3; O2SAT 92
[2017-09-24 20:05] VITALS: PULSE 87
[2017-09-24] MEDS: REMOVE OLD PATCH T-DERMAL SCH (21:00)
[2017-09-24] MEDS: SODIUM CHLORIDE 0.9% FLUSH 10 ML FLUSH IV FLUSH SCH (21:00)
[2017-09-24 21:10] LABS: BICARBONATE 21.5 MEQ/L (21.0-32.0); CREATININE 0.41 MG/DL (0.50-1.00)
[2017-09-24] MEDS: metroNIDAZOLE 500 MG INJ 100 ML IV SCH (22:41)
[2017-09-24 23:40] VITALS: BP 119/63; PULSE 84; RESP 16; TEMP 98; O2SAT 95
[2017-09-24] MEDS ORDERED: POTASSIUM CHLORIDE 25 MEQ EFFERVESCENT TAB PO ONE (23:45)
[2017-09-24] MEDS: NS + KCL 40 MEQ INJ 1,000 ML IV SCH (23:52)
[2017-09-25] VITALS (10 sets, daily range): BP systolic 135–160; BP diastolic 67–97; PULSE 77–92; RESP 16–18; TEMP 98.1–99.4; O2SAT 95–98
[2017-09-25 00:36] LABS: BICARBONATE 20.4 MEQ/L (21.0-32.0); CALCIUM 7.6 MG/DL (8.5-10.1); CREATININE 0.4 MG/DL (0.50-1.00)
[2017-09-25] MEDS ORDERED: CIPROFLOXACIN 400 MG PREMIX 200 ML IV SCH (03:30)
[2017-09-25] MEDS: metroNIDAZOLE 500 MG INJ 100 ML IV SCH ×3 (05:40→21:26)
[2017-09-25] MEDS: VANCOMYCIN 500 MG VIAL (FOR ORAL USE ONLY) PO SCH ×5 (06:31→21:26)
[2017-09-25 08:16] LABS: AUTOMATED NEUTROPHIL # 14.3 TH/MM3 (1.8-7.7); BASOPHIL % 0.2 % (0.0-2.0); EOSINOPHIL % 0.1 % (0.0-4.0); HEMATOCRIT 33.2 % (35.0-46.0); HEMOGLOBIN 11.1 GM/DL (11.6-15.3); LYMPH % 4.3 % (9.0-44.0); LYMPHOCYTE # 0.7 TH/MM3 (1.0-4.8); MEAN CELL VOLUME 88.7 FL (80.0-100.0); MEAN CORPUSCULAR HEMOGLOBIN 29.6 PG (27.0-34.0); MEAN CORPUSCULAR HGB CONC 33.4 % (32.0-36.0); MEAN PLATELET VOLUME 8.8 FL (7.0-11.0); MONO % 3.7 % (0.0-8.0); MONOCYTE # 0.6 TH/MM3 (0-0.9); NEUT % 91.7 % (16.0-70.0); PLATELET COUNT 216 TH/MM3 (150-450); RED BLOOD COUNT 3.74 MIL/MM3 (4.00-5.30); RED CELL DISTRIBUTION WIDTH 13.6 % (11.6-17.2); WHITE BLOOD COUNT 15.6 TH/MM3 (4.0-11.0)
[2017-09-25 08:34] LABS: BICARBONATE 18.1 MEQ/L (21.0-32.0); CALCIUM 8.1 MG/DL (8.5-10.1); CREATININE 0.44 MG/DL (0.50-1.00)
[2017-09-25] MEDS: SODIUM CHLORIDE 0.9% FLUSH 10 ML FLUSH IV FLUSH SCH ×2 (08:43→21:00)
[2017-09-25] MEDS: NICOTINE 14 MG/24 HR PATCH T-DERMAL SCH (08:48)
--- NOTE | 2017-09-25 09:38 | RADRPT ---
EXAM DATE/TIME: 09/25/2017 09:04 [facility] COMPARISON: CHEST PA & LAT, September 24, 2017, 16:01. INDICATIONS : Pulmonary edema. MEDICAL HISTORY : SURGICAL HISTORY : None. ENCOUNTER: Subsequent ACUITY: 2 weeks PAIN SCORE: 0/10 LOCATION: chest FINDINGS: Minimal residual airspace disease is present in the right upper lobe. Left lung and right base are c learing. The heart and pulmonary vascularity are normal. CONCLUSION: Interval improvement. Leo Brush MD FACR on September 25, 2017 at 9:35 Board Certified Radiologist. This report was verified electronically.
[2017-09-25] MEDS ORDERED: SODIUM CHLOR 0.9% 1000 ML INJ 1,000 ML IV SCH (10:30)
[2017-09-25] MEDS ORDERED: SODIUM CHLOR 0.9% 1000 ML INJ 1,000 ML IV ONE (10:30)
--- NOTE | 2017-09-25 11:03 | PD.CONS ---
HPI History of Present Illness This is a 56 year old female with hx IVDU, CAD s/p stent palcement who presented with abd pain, diarrhea, heme pos stool. Pt has reportedly had loose stool for 5 days. She is c/o abd pain an is tender on exam. CT showed patchy colitis and patent vessels. She is pos for c diff. "Possibly" saw blood in her stool, cannot further elaborate. She is pos for c diff. Denies sick contacts, recent abx use. Never had EGD or colonoscopy. Pt is reluctant/poor historian, most of hx obtained from EMR. (Jossie Rivera) PFSH Past Medical History denies per EMR CAD IVDU Past Surgical History stent placement (Jossie Rivera) Coded Allergies: nitroglycerin (Verified Allergy, Severe, Anaphylaxis, 09/24/17) doxycycline (Verified Adverse Reaction, Intermediate, Shortness of Breath , 09/24/17) minocycline (Verified Adverse Reaction, Intermediate, Shortness of Breath , 09/24/17) tigecycline (Verified Adverse Reaction, Intermediate, Shortness of Breath , 09/24/17) Family History noncontributory Social History denies etoh, illicit drugs per EMR hx IVDU smokes 1ppd (Jossie Rivera) Review of Systems Gastrointestinal: COMPLAINS OF: Abdominal pain, Bloody stools, Nausea, DENIES: Vomiting otherwise noncontributory (Jossie Rivera) GI Exam Vitals I&O Vital Signs Date Time Temp Pulse Resp B/P (MAP) Pulse Ox O2 Delivery O2 Flow Rate FiO2 09/25/17 08:00 90 09/25/17 08:00 Room Air 09/25/17 08:00 98.1 92 17 139/70 (93) 96 09/25/17 04:02 98.6 87 16 140/67 (91) 95 09/25/17 00:17 85 09/25/17 00:00 Room Air 09/24/17 23:40 98.0 84 16 119/63 (81) 95 09/24/17 20:05 87 09/24/17 20:00 Room Air 09/24/17 19:35 98.3 88 16 96/53 (67) 92 09/24/17 18:30 98.7 89 16 92/50 (64) 95 09/24/17 18:17 09/24/17 15:08 82 14 109/58 (75) 95 Room Air 09/24/17 13:39 (76) Room Air 09/24/17 12:37 97.5 94 16 115/57 (76) 99 Room Air I/O 09/24/17 09/24/17 09/24/17 09/25/17 09/25/17 09/25/17 07:00 15:00 23:00 07:00 15:00 23:00 Intake Total 1350 ml 1118 ml Balance 1350 ml 1118 ml Intake Oral 0 ml IV Total 1350 ml 1118 ml # Voids 3 # Bowel Movements 3 Imaging Last Impressions Chest X-Ray 09/25/17 0800 Signed Impressions: Service Date/Time: Monday, September 25, 2017 09:04 - CONCLUSION: Interval improvement. Leo Brush MD FACR Abdomen/Pelvis CT 09/24/17 1241 Signed Impressions: Service Date/Time: Sunday, September 24, 2017 14:27 - CONCLUSION: Colitis. Patchy pulmonary infiltrates. Calcified uterine fibroid. Salbador Villafana MD ADDENDUM: COMPARISON: CT BRAIN W/O CONTRAST, September 21, 2017, 23:48. We are asked to comment on the mesenteric vasculature. The examination does demonstrate satisfactory visualization of the celiac axis, the SMA and the MAUREEN. All 3 vessels are well-visualized proximally and appear widely patent. Maxi Brush MD Laboratory Test 09/24/17 13:09 09/24/17 13:40 09/24/17 14:10 09/24/17 15:00 White Blood Count 23.0 TH/MM3 Red Blood Count 4.15 MIL/MM3 Hemoglobin 12.3 GM/DL Hematocrit 36.4 % Mean Corpuscular Volume 87.7 FL Mean Corpuscular Hemoglobin 29.8 PG Mean Corpuscular Hemoglobin Concent 33.9 % Red Cell Distribution Width 13.1 % Platelet Count 221 TH/MM3 Mean Platelet Volume 7.9 FL Neutrophils (%) (Auto) 93.2 % Lymphocytes (%) (Auto) 1.8 % Monocytes (%) (Auto) 4.6 % Eosinophils (%) (Auto) 0.1 % Basophils (%) (Auto) 0.3 % Neutrophils # (Auto) 21.4 TH/MM3 Lymphocytes # (Auto) 0.4 TH/MM3 Monocytes # (Auto) 1.1 TH/MM3 Eosinophils # (Auto) 0.0 TH/MM3 Basophils # (Auto) 0.1 TH/MM3 CBC Comment DIFF FINAL Differential Comment Blood Urea Nitrogen 8 MG/DL Creatinine 0.51 MG/DL Random Glucose 126 MG/DL Total Protein 6.2 GM/DL Albumin 3.0 GM/DL Calcium Level 8.2 MG/DL Alkaline Phosphatase 77 U/L Aspartate Amino Transf (AST/SGOT) 26 U/L Alanine Aminotransferase (ALT/SGPT) 26 U/L Total Bilirubin 0.6 MG/DL Sodium Level 136 MEQ/L Potassium Level 2.9 MEQ/L Chloride Level 104 MEQ/L Carbon Dioxide Level 23.2 MEQ/L Anion Gap 9 MEQ/L Estimat Glomerular Filtration Rate 126 ML/MIN B-Type Natriuretic Peptide 435 PG/ML Lipase 32 U/L Ethyl Alcohol Level LESS THAN 3 MG/DL Prothrombin Time 10.8 SEC Prothromb Time International Ratio 1.1 RATIO Activated Partial Thromboplast Time 29.8 SEC Lactic Acid Level 1.0 mmol/L Urine Color YELLOW Urine Turbidity CLEAR Urine pH 6.5 Urine Specific [place] GREATER THAN 1.050 Urine Protein 30 mg/dL Urine Glucose (UA) NEG mg/dL Urine Ketones NEG mg/dL Urine Occult Blood NEG Urine Nitrite NEG Urine Bilirubin NEG Urine Urobilinogen LESS THAN 2.0 MG/DL Urine Leukocyte Esterase NEG Urine RBC 3 /hpf Urine WBC 2 /hpf Urine Mucus MOD /lpf Microscopic Urinalysis Comment CULT NOT INDICATED Urine Opiates Screen NEG Urine Barbiturates Screen NEG Urine Amphetamines Screen NEG Urine Benzodiazepines Screen NEG Urine Cocaine Screen NEG Urine Cannabinoids Screen NEG Test 09/24/17 19:15 09/24/17 20:00 09/24/17 23:49 09/25/17 06:30 Stool C. difficile Toxin (PCR) POSITIVE Stl C. difficile Toxin Epiderm 027 PRESUMPTIVE POSITIVE Blood Urea Nitrogen 8 MG/DL 9 MG/DL 11 MG/DL Creatinine 0.41 MG/DL 0.40 MG/DL 0.44 MG/DL Random Glucose 87 MG/DL 87 MG/DL 80 MG/DL Calcium Level 8.0 MG/DL 7.6 MG/DL 8.1 MG/DL Sodium Level 139 MEQ/L 141 MEQ/L 142 MEQ/L Potassium Level 3.2 MEQ/L 3.0 MEQ/L 3.3 MEQ/L Chloride Level 110 MEQ/L 111 MEQ/L 113 MEQ/L Carbon Dioxide Level 21.5 MEQ/L 20.4 MEQ/L 18.1 MEQ/L Anion Gap 8 MEQ/L 10 MEQ/L 11 MEQ/L Estimat Glomerular Filtration Rate 162 ML/MIN 166 ML/MIN 149 ML/MIN Magnesium Level 2.0 MG/DL Hepatitis A IgM Antibody NONREACTIVE Hepatitis B Surface Antigen NONREACTIVE Hepatitis B Core IgM Antibody NONREACTIVE Hepatitis C IgG Antibody REACTIVE White Blood Count 15.6 TH/MM3 Red Blood Count 3.74 MIL/MM3 Hemoglobin 11.1 GM/DL Hematocrit 33.2 % Mean Corpuscular Volume 88.7 FL Mean Corpuscular Hemoglobin 29.6 PG Mean Corpuscular Hemoglobin Concent 33.4 % Red Cell Distribution Width 13.6 % Platelet Count 216 TH/MM3 Mean Platelet Volume 8.8 FL Neutrophils (%) (Auto) 91.7 % Lymphocytes (%) (Auto) 4.3 % Monocytes (%) (Auto) 3.7 % Eosinophils (%) (Auto) 0.1 % Basophils (%) (Auto) 0.2 % Neutrophils # (Auto) 14.3 TH/MM3 Lymphocytes # (Auto) 0.7 TH/MM3 Monocytes # (Auto) 0.6 TH/MM3 Eosinophils # (Auto) 0.0 TH/MM3 Basophils # (Auto) 0.0 TH/MM3 CBC Comment DIFF FINAL Differential Comment B-Type Natriuretic Peptide 263 PG/ML Test 09/25/17 10:40 Date/Time Source Procedure Growth Status 09/24/17 14:10 Blood Peripheral Aerobic Blood Culture Pending Received 09/24/17 14:10 Blood Peripheral Anaerobic Blood Culture Pending Received 09/24/17 19:15 Stool Stool Cryptosporidium Exam Pending Resulted 09/24/17 19:15 Stool Stool Stool Pus (KARTIK) - Final RARE WBC Resulted 09/24/17 19:15 Stool Stool Giardia Antigen (KARTIK) Pending Resulted 09/24/17 15:00 Urine Clean Catch Legionella Antigen - Final PRESUMPTIVE NEGATIVE FOR LEGIONELLA P... Complete 09/24/17 15:00 Urine Clean Catch Streptococcus pneumoniae Antigen (M - Final PRESUMPTIVE NEGATIVE FOR STREPTOCOCCU... Complete Physical Examination HEENT: PERRL; normocephalic; atraumatic; no jaundice. CHEST: CTA CARDIAC: RRR ABDOMEN: Soft, nondistended,diffuse TTP; no hepatosplenomegaly; bowel sounds are present in all four quadrants. EXTREMITIES: No clubbing, cyanosis, or edema. SKIN: Normal; no rash; no jaundice. 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 pos for c diff, colitis seen on CT. limited hx. never had EGD or colonsocopy - hcb ab reactive - genotype and quant pending. reported hx IVDU. - leukocytosis - 2/2 c diff PLAN - colonoscopy as outpt - continue flagyl and vanc - await hcv genotype and quant - tx as outpt if needed, will need to be drug gree - supportive care pt seen by myself and Dr Feldman and this note is on her behalf (Jossie Rivera) Physician Comments seen, examined agree with above if worsening consider ID consult (Ericka Feldman MD) Jossie Rivera September 25, 2017 11:03 Ericka Feldman MD September 25, 2017 14:10
--- NOTE | 2017-09-25 11:21 | HHI.FPPN ---
Subjective Remarks No acute events overnight. Vital signs within normal limits. 3 voids and 3 bowel movements. Patient was positive for C. difficile. Patient appears very fatigued this morning, but is responsive to questions. She states that she is having chills. She also endorses lower abdominal pain. She denies chest pain, shortness of breath, nausea and vomiting, and fevers. (Noemi Orellana MD R1) Objective Vitals Vital Signs Date Time Temp Pulse Resp B/P (MAP) Pulse Ox O2 Delivery O2 Flow Rate FiO2 09/25/17 08:00 90 09/25/17 08:00 Room Air 09/25/17 08:00 98.1 92 17 139/70 (93) 96 09/25/17 04:02 98.6 87 16 140/67 (91) 95 09/25/17 00:17 85 09/25/17 00:00 Room Air 09/24/17 23:40 98.0 84 16 119/63 (81) 95 09/24/17 20:05 87 09/24/17 20:00 Room Air 09/24/17 19:35 98.3 88 16 96/53 (67) 92 09/24/17 18:30 98.7 89 16 92/50 (64) 95 09/24/17 18:17 09/24/17 15:08 82 14 109/58 (75) 95 Room Air 09/24/17 13:39 (76) Room Air 09/24/17 12:37 97.5 94 16 115/57 (76) 99 Room Air I/O 09/24/17 09/24/17 09/24/17 09/25/17 09/25/17 09/25/17 07:00 15:00 23:00 07:00 15:00 23:00 Intake Total 1350 ml 1118 ml Balance 1350 ml 1118 ml Intake Oral 0 ml IV Total 1350 ml 1118 ml # Voids 3 # Bowel Movements 3 (Noemi Orellana MD R1) Result Diagram: 09/25/17 0630 09/25/17 0630 Imaging GENERAL: Thin female, sleepy and fatigued, in no acute distress SKIN: No rashes, ecchymoses or lesions. Cool and dry. HEAD: Atraumatic. Normocephalic. No temporal or scalp tenderness. EYES: Pupils equal round and reactive. Extraocular motions intact. No scleral icterus. No injection or drainage. ENT: Nose without bleeding, purulent drainage or septal hematoma. Throat without erythema, tonsillar hypertrophy or exudate. Uvula midline. Airway patent. NECK: Trachea midline. No JVD or lymphadenopathy. Supple, nontender, no meningeal signs. CARDIOVASCULAR: Regular rate and rhythm without murmurs, gallops, or rubs. RESPIRATORY: Clear to auscultation. Breath sounds equal bilaterally. No wheezes , rales, or rhonchi. GASTROINTESTINAL: Abdomen soft, moderate tenderness in the lower abdominal quadrant, nondistended. No hepato-splenomegaly, or palpable masses. No guarding. MUSCULOSKELETAL: Extremities without clubbing, cyanosis, or edema. No joint tenderness, effusion, or edema noted. No calf tenderness. Negative Homans sign bilaterally. NEUROLOGICAL: Awake and sleepy. Normal speech. (Noemi Orellana MD R1) A/P Assessment and Plan 56-year-old female with CAD status post stent 2, anxiety, depression, history of IV drug use, and recent encephalopathy presents to the ED via EMS for abdominal pain. Admitted for meeting SIRS criteria, further management and workup. Discharge Planning Anticipate discharge within 2-3 days (Noemi Orellana MD R1) Problem List: (1) SIRS (systemic inflammatory response syndrome) ICD Codes: R65.10 - Systemic inflammatory response syndrome (SIRS) of non- infectious origin without acute organ dysfunction Status: Acute Plan: Patient meets SIRS criteria upon admission due to tachycardia and elevated white blood cell count and known source of infection See plan as below (2) Colitis ICD Codes: K52.9 - Noninfective gastroenteritis and colitis, unspecified Status: Acute Plan: 1 day history of abdominal pain and 5 day history of nonbloody, watery diarrhea. Colitis versus GI bleed versus mesenteric ischemia Abdominal CT demonstrates colitis, patchy pulmonary infiltrates, calcified uterine fibroid, celiac axis, the SMA, and the MAUREEN are well visualized approximately and appears widely patent. White count elevated at 23 on admission, improved to 15.6 today Hemoccult-positive, performed in the ED C. difficile positive, treating with oral vancomycin 125 mg p.o. 4 times daily Giardia, Cryptosporidium, stool leukocytes, stool cultures pending Patient received 1 L bolus of normal saline this morning IV fluids increased to 100 mls per hour NG tube, patient refused Protonix 40 IV every 12h Continue patient on Flagyl 500 mg IV every 8 hours GI consulted, recommendations appreciated -Colonoscopy as outpatient, continue antibiotics, supportive care (3) Abnormal CXR (chest x-ray) ICD Codes: R93.8 - Abnormal findings on diagnostic imaging of other specified body structures Plan: CT positive for pulmonary infiltrates Chest x-ray demonstrates highly hilar opacities consistent with central pulmonary vascular congestion Possible congestive heart failure BNP 263 2D echo complete with Doppler pending Incentive spirometry Patient not requiring oxygen at this time (4) Hepatitis C ICD Codes: B19.20 - Hepatitis C Status: Acute Plan: Patient positive for hep C. Patient reports that she has positive for hep C in the past due to IV drug use. Patient reports not being treated. Genotype and quantitative pending (5) Hypokalemia ICD Codes: E87.6 - Hypokalemia Status: Acute Plan: Potassium of 2.9 on admission, improved to 3.3 today Replaced orally (6) History of drug use ICD Codes: Z87.898 - Personal history of other specified conditions Plan: Urine drug screen negative to date Ethanol level less than 3 2D echo complete with Doppler pending (7) Nutrition, metabolism, and development symptoms ICD Codes: R63.8 - Other symptoms and signs concerning food and fluid intake Plan: Diet: Transition to clear liquid diet Fluids:100 mls per hour normal saline Electrolytes: monitor and replace as needed Monitor I's and O's, vitals every 4 Patient on seizure precautions [facility] protocol Case management consulted (Noemi Orellana MD R1) Problem List: (1) SIRS (systemic inflammatory response syndrome) ICD Codes: R65.10 - Systemic inflammatory response syndrome (SIRS) of non- infectious origin without acute organ dysfunction Status: Acute Plan: Patient meets SIRS criteria upon admission due to tachycardia and elevated white blood cell count and known source of infection See plan as below (2) Colitis ICD Codes: K52.9 - Noninfective gastroenteritis and colitis, unspecified Status: Acute Plan: 1 day history of abdominal pain and 5 day history of nonbloody, watery diarrhea. Colitis versus GI bleed versus mesenteric ischemia Abdominal CT demonstrates colitis, patchy pulmonary infiltrates, calcified uterine fibroid, celiac axis, the SMA, and the MAUREEN are well visualized approximately and appears widely patent. White count elevated at 23 on admission, improved to 15.6 today Hemoccult-positive, performed in the ED C. difficile positive, treating with oral vancomycin 125 mg p.o. 4 times daily Giardia, Cryptosporidium, stool leukocytes, stool cultures pending Patient received 1 L bolus of normal saline this morning IV fluids increased to 100 mls per hour NG tube, patient refused Protonix 40 IV every 12h Continue patient on Flagyl 500 mg IV every 8 hours GI consulted, recommendations appreciated -Colonoscopy as outpatient, continue antibiotics, supportive care (3) Abnormal CXR (chest x-ray) ICD Codes: R93.8 - Abnormal findings on diagnostic imaging of other specified body structures Plan: CT positive for pulmonary infiltrates Chest x-ray demonstrates highly hilar opacities consistent with central pulmonary vascular congestion Possible congestive heart failure BNP 263 2D echo complete with Doppler pending Incentive spirometry Patient not requiring oxygen at this time (4) Hepatitis C ICD Codes: B19.20 - Hepatitis C Status: Acute Plan: Patient positive for hep C. Patient reports that she has positive for hep C in the past due to IV drug use. Patient reports not being treated. Genotype and quantitative pending (5) Hypokalemia ICD Codes: E87.6 - Hypokalemia Status: Acute Plan: Potassium of 2.9 on admission, improved to 3.3 today Replaced orally (6) History of drug use ICD Codes: Z87.898 - Personal history of other specified conditions Plan: Urine drug screen negative to date Ethanol level less than 3 2D echo complete with Doppler pending (7) Nutrition, metabolism, and development symptoms ICD Codes: R63.8 - Other symptoms and signs concerning food and fluid intake Plan: Diet: Transition to clear liquid diet Fluids:100 mls per hour normal saline Electrolytes: monitor and replace as needed Monitor I's and O's, vitals every 4 Patient on seizure precautions [facility] protocol Case management consulted See the residents documentation for details. I saw and evaluated the patient regarding the gregg portions of this evaluation and agree with the residents findings and plans as written. Parts of this note were created using [employer] voice recognition software program. While efforts were made to correct any mistakes made by this software, some mistakes, errors, and omissions may remain in the final note that were not caught when the note was originally created. Plan of care was discussed and agreed upon with the patient as specifically documented in the above note. An opportunity to ask questions with explanation was provided. Patient voiced understanding on all information reviewed and discussed. (Sachin Guerra MD) Noemi Orellana MD R1 September 25, 2017 11:21 Sachin Guerra MD September 25, 2017 12:55
[2017-09-25] MEDS: HEPARIN SODIUM - SQ 10,000 UNITS/ML VIAL SQ SCH (12:22)
[2017-09-25] MEDS: MORPHINE SULFATE 4 MG/ML INJ IV PUSH PRN ×3 (13:09→21:26)
[2017-09-25] MEDS ORDERED: LEVOFLOXACIN 750 MG PREMIX INJ 150 ML IV SCH (16:00)
[2017-09-25] MEDS: NS + KCL 40 MEQ INJ 1,000 ML IV SCH (17:28)
[2017-09-25] MEDS: REMOVE OLD PATCH T-DERMAL SCH (21:00)
--- NOTE | 2017-09-25 22:33 | EKG ---
Date Performed: 09/24/2017 Time Performed: 15:22:42 PTAGE: 56 years EKG: Sinus rhythm POSSIBLE LEFT ATRIAL ENLARGEMENT POSSIBLE RIGHT VENTRICULAR CONDUCTION DELAY MODERATE T-WAVE ABNORMA LITY, CONSIDER ANTEROLATERAL ISCHEMIA ABNORMAL ECG PREVIOUS TRACING : 09/24/2017 15.21 Compared to previous tracing, sinus tachycardia is no long er present DOCTOR: Salas Licea Interpretating Date/Time 09/27/2017 07:16:39
[2017-09-26] VITALS (10 sets, daily range): BP systolic 138–171; BP diastolic 71–87; PULSE 68–81; RESP 16–18; TEMP 98.1–98.9; O2SAT 95–100
[2017-09-26] MEDS: MORPHINE SULFATE 4 MG/ML INJ IV PUSH PRN ×4 (02:28→21:19)
[2017-09-26] MEDS: metroNIDAZOLE 500 MG INJ 100 ML IV SCH ×3 (05:23→21:11)
[2017-09-26] MEDS: NS + KCL 40 MEQ INJ 1,000 ML IV SCH ×2 (05:24→18:38)
[2017-09-26 05:46] LABS: HEMATOCRIT 31.8 % (35.0-46.0); HEMOGLOBIN 10.9 GM/DL (11.6-15.3); MEAN CELL VOLUME 89.5 FL (80.0-100.0); MEAN CORPUSCULAR HEMOGLOBIN 30.5 PG (27.0-34.0); MEAN CORPUSCULAR HGB CONC 34.1 % (32.0-36.0); MEAN PLATELET VOLUME 8.6 FL (7.0-11.0); PLATELET COUNT 210 TH/MM3 (150-450); RED BLOOD COUNT 3.56 MIL/MM3 (4.00-5.30); RED CELL DISTRIBUTION WIDTH 13.4 % (11.6-17.2); WHITE BLOOD COUNT 12.1 TH/MM3 (4.0-11.0)
[2017-09-26 06:26] LABS: ALBUMIN 2.4 GM/DL (3.4-5.0); ALKALINE PHOSPHATASE 49 U/L (45-117); ALT (GPT) 17 U/L (10-53); AST (GOT) 19 U/L (15-37); BICARBONATE 18.8 MEQ/L (21.0-32.0); BLOOD UREA NITROGEN 7 MG/DL (7-18); CHLORIDE 114 MEQ/L (98-107); CREATININE 0.44 MG/DL (0.50-1.00); GLOMERULAR FILTRATION RATE 149 ML/MIN (>89); GLUCOSE,RANDOM 92 MG/DL (74-106); SODIUM (NA) 143 MEQ/L (136-145); TOTAL BILIRUBIN ADULT 0.3 MG/DL (0.2-1.0); TOTAL PROTEIN 5.5 GM/DL (6.4-8.2)
[2017-09-26] MEDS ORDERED: CALCIUM CARBONATE 500 MG CHEWABLE TAB CHEW ONE (07:00)
[2017-09-26] MEDS ORDERED: cloNIDine HCL 0.1 MG TAB PO PRN (07:30)
[2017-09-26] MEDS ORDERED: POTASSIUM CHLORIDE 20 MEQ CONTROLLED RELEASE TAB PO ONE (07:30)
[2017-09-26] MEDS: SODIUM CHLORIDE 0.9% FLUSH 10 ML FLUSH IV FLUSH SCH ×2 (07:56→21:22)
[2017-09-26] MEDS: VANCOMYCIN 500 MG VIAL (FOR ORAL USE ONLY) PO SCH ×4 (07:57→21:11)
[2017-09-26] MEDS: LISINOPRIL 20 MG TAB PO SCH (07:57)
[2017-09-26] MEDS: NICOTINE 14 MG/24 HR PATCH T-DERMAL SCH (07:57)
--- NOTE | 2017-09-26 10:14 | HHI.FPPN ---
Subjective Remarks No acute events overnight. Patient lying in bed. Appears sleepy and fatigued. Blood pressure of 161/78 this morning. Patient denies vomiting. She states that her diarrhea has improved. 2 bowel movements recorded yesterday. She still complains of moderate lower abdominal pain. She denies chest pain or shortness of breath. No other complaints. She states that she has family in [place]. (Noeim Orellana MD R1) Objective Vitals Vital Signs Date Time Temp Pulse Resp B/P (MAP) Pulse Ox O2 Delivery O2 Flow Rate FiO2 09/26/17 08:00 81 09/26/17 08:00 Room Air 09/26/17 06:27 98.6 76 16 161/78 (105) 96 09/26/17 04:01 76 09/26/17 00:32 77 09/25/17 23:20 98.7 77 18 160/77 (104) 98 09/25/17 20:14 99.4 82 18 154/72 (99) 97 09/25/17 20:11 81 09/25/17 20:00 Room Air 09/25/17 16:00 84 09/25/17 16:00 99.0 81 18 153/72 (99) 97 09/25/17 15:50 97 21 09/25/17 12:00 98.3 86 17 135/97 (110) 97 09/25/17 12:00 86 09/25/17 11:35 96 I/O 09/25/17 09/25/17 09/25/17 09/26/17 09/26/17 09/26/17 07:00 15:00 23:00 07:00 15:00 23:00 Intake Total 1118 ml 480 ml 1000 ml Balance 1118 ml 480 ml 1000 ml Intake Oral 0 ml 480 ml 0 ml IV Total 1118 ml 1000 ml # Voids 3 2 1 # Bowel Movements 3 2 1 (Noemi Orellana MD R1) Result Diagram: 09/26/17 0502 09/26/17 0502 Objective Remarks GENERAL: Thin female, sleepy and fatigued, in no acute distress SKIN: No rashes, ecchymoses or lesions. Cool and dry. CARDIOVASCULAR: Regular rate and rhythm without murmurs, gallops, or rubs. RESPIRATORY: Clear to auscultation. Breath sounds equal bilaterally. Slight wheezing. GASTROINTESTINAL: Abdomen soft, moderate tenderness in the lower abdominal quadrant unchanged from prior exam, nondistended. No hepato-splenomegaly, or palpable masses. No guarding. MUSCULOSKELETAL: Extremities without clubbing, cyanosis, or edema. No joint tenderness, effusion, or edema noted. No calf tenderness. Negative Homans sign bilaterally. NEUROLOGICAL: Awake and sleepy. Normal speech. (Noemi Orellana MD R1) A/P Assessment and Plan 56-year-old female with CAD status post stent 2, anxiety, depression, history of IV drug use, and recent encephalopathy presents to the ED via EMS for abdominal pain. Admitted for SIRS, further management, and workup. Discharge Planning Anticipate discharge tomorrow if patient continues to improve clinically Case management working on placement (Noemi Orellana MD R1) Problem List: (1) SIRS (systemic inflammatory response syndrome) ICD Codes: R65.10 - Systemic inflammatory response syndrome (SIRS) of non- infectious origin without acute organ dysfunction Status: Acute Plan: Patient meets SIRS criteria upon admission due to tachycardia and elevated white blood cell count and known source of infection See plan as below (2) C. difficile colitis ICD Codes: A04.72 - Enterocolitis due to Clostridium difficile, not specified as recurrent Plan: C. difficile positive, treating with oral vancomycin 125 mg p.o. 4 times daily, will plan on doing a 14 day course Giardia and Cryptosporidium pending Final stool culture resulted with no enteric pathogens detected by PCR IV fluids 83mls/hr until patient can hydrate adequately p.o. NG tube, patient refused Continue patient on Flagyl 500 mg IV every 8 hours GI consulted, recommendations appreciated -Colonoscopy as outpatient, continue antibiotics, supportive care Prior Labs & Imagin day history of abdominal pain and 5 day history of nonbloody, watery diarrhea. Colitis versus GI bleed versus mesenteric ischemia Abdominal CT demonstrates colitis, patchy pulmonary infiltrates, calcified uterine fibroid, celiac axis, the SMA, and the MAUREEN are well visualized approximately and appears widely patent. White count elevated at 23 on admission, improved to 15.6 today Hemoccult-positive, performed in the ED (3) Abnormal CXR (chest x-ray) ICD Codes: R93.8 - Abnormal findings on diagnostic imaging of other specified body structures Plan: CT positive for pulmonary infiltrates Chest x-ray demonstrates highly hilar opacities consistent with central pulmonary vascular congestion BNP 263 2D echo complete with Doppler pending Incentive spirometry Patient not requiring oxygen at this time Slight wheezes heard on exam today, will order DuoNeb 1 amp every 6 (4) Hepatitis C ICD Codes: B19.20 - Hepatitis C Status: Acute Plan: Patient positive for hep C. Patient reports that she has positive for hep C in the past due to IV drug use. Patient reports not being treated. Genotype and quantitative pending (5) Hypokalemia ICD Codes: E87.6 - Hypokalemia Status: Resolved Plan: Potassium of 2.9 on admission Resolved Continue to monitor (6) History of drug use ICD Codes: Z87.898 - Personal history of other specified conditions Plan: Urine drug screen negative to date Ethanol level less than 3 2D echo complete with Doppler pending HIV negative (7) HTN (hypertension) ICD Codes: I10 - Essential (primary) hypertension Plan: Blood pressure elevated at 160s/70s, possible due to fluids, will decrease to 83mls/hr from 100ml/hr Start lisinopril 20mg daily Clonidine 0.1mg PO q6h PRN for BP > 180/100 (8) Nutrition, metabolism, and development symptoms ICD Codes: R63.8 - Other symptoms and signs concerning food and fluid intake Plan: Diet: clear liquid diet, progress diet as tolerated Fluids:83 mls per hour normal saline Electrolytes: monitor and replace as needed Monitor I's and O's, vitals every 4 Patient on seizure precautions [facility] protocol Case management consulted (Noemi Orellana MD R1) Problem List: (1) SIRS (systemic inflammatory response syndrome) ICD Codes: R65.10 - Systemic inflammatory response syndrome (SIRS) of non- infectious origin without acute organ dysfunction Status: Acute Plan: Patient meets SIRS criteria upon admission due to tachycardia and elevated white blood cell count and known source of infection See plan as below (2) C. difficile colitis ICD Codes: A04.72 - Enterocolitis due to Clostridium difficile, not specified as recurrent Plan: C. difficile positive, treating with oral vancomycin 125 mg p.o. 4 times daily, will plan on doing a 14 day course Giardia and Cryptosporidium pending Final stool culture resulted with no enteric pathogens detected by PCR IV fluids 83mls/hr until patient can hydrate adequately p.o. NG tube, patient refused Continue patient on Flagyl 500 mg IV every 8 hours GI consulted, recommendations appreciated -Colonoscopy as outpatient, continue antibiotics, supportive care Prior Labs & Imagin day history of abdominal pain and 5 day history of nonbloody, watery diarrhea. Colitis versus GI bleed versus mesenteric ischemia Abdominal CT demonstrates colitis, patchy pulmonary infiltrates, calcified uterine fibroid, celiac axis, the SMA, and the MAUREEN are well visualized approximately and appears widely patent. White count elevated at 23 on admission, improved to 15.6 today Hemoccult-positive, performed in the ED (3) Abnormal CXR (chest x-ray) ICD Codes: R93.8 - Abnormal findings on diagnostic imaging of other specified body structures Plan: CT positive for pulmonary infiltrates Chest x-ray demonstrates highly hilar opacities consistent with central pulmonary vascular congestion BNP 263 2D echo complete with Doppler pending Incentive spirometry Patient not requiring oxygen at this time Slight wheezes heard on exam today, will order DuoNeb 1 amp every 6 (4) Hepatitis C ICD Codes: B19.20 - Hepatitis C Status: Acute Plan: Patient positive for hep C. Patient reports that she has positive for hep C in the past due to IV drug use. Patient reports not being treated. Genotype and quantitative pending (5) Hypokalemia ICD Codes: E87.6 - Hypokalemia Status: Resolved Plan: Potassium of 2.9 on admission Resolved Continue to monitor (6) History of drug use ICD Codes: Z87.898 - Personal history of other specified conditions Plan: Urine drug screen negative to date Ethanol level less than 3 2D echo complete with Doppler pending HIV negative (7) HTN (hypertension) ICD Codes: I10 - Essential (primary) hypertension Plan: Blood pressure elevated at 160s/70s, possible due to fluids, will decrease to 83mls/hr from 100ml/hr Start lisinopril 20mg daily Clonidine 0.1mg PO q6h PRN for BP > 180/100 (8) Nutrition, metabolism, and development symptoms ICD Codes: R63.8 - Other symptoms and signs concerning food and fluid intake Plan: Diet: clear liquid diet, progress diet as tolerated Fluids:83 mls per hour normal saline Electrolytes: monitor and replace as needed Monitor I's and O's, vitals every 4 Patient on seizure precautions [facility] protocol Case management consulted See the residents documentation for details. I saw and evaluated the patient regarding the gregg portions of this evaluation and agree with the residents findings and plans as written. Parts of this note were created using [employer] voice recognition software program. While efforts were made to correct any mistakes made by this software, some mistakes, errors, and omissions may remain in the final note that were not caught when the note was originally created. Plan of care was discussed and agreed upon with the patient as specifically documented in the above note. An opportunity to ask questions with explanation was provided. Patient voiced understanding on all information reviewed and discussed. (Sachin Guerra MD) Noemi Orellana MD R1 September 26, 2017 10:14 Sachin Guerra MD September 26, 2017 12:27
[2017-09-26] MEDS ORDERED: ACETAMINOPHEN/HYDROcodone 325 MG/5 MG TAB PO PRN (10:45)
[2017-09-26] MEDS: HEPARIN SODIUM - SQ 10,000 UNITS/ML VIAL SQ SCH ×4 (12:00→23:56)
[2017-09-26] MEDS: ACETAMINOPHEN/HYDROcodone 325 MG/7.5 MG TAB PO PRN ×3 (12:41→23:55)
[2017-09-26] MEDS: RESP: ALBUTEROL 2.5 MG/IPRATROPIUM 0.5 MG NEB (SCH) NEB ×2 (14:15→19:19)
--- NOTE | 2017-09-26 14:34 | HHI.GIFU ---
Subjective Remarks Pt resting in bed Complaining of continued abdominal pain Still having watery BMs She is concerned about being discharged tomorrow States she is from [facility] and that they won't take her back She has discussed this with case management (Rhonda rAroyo) Objective Vitals I&O Vital Signs Date Time Temp Pulse Resp B/P (MAP) Pulse Ox O2 Delivery O2 Flow Rate FiO2 09/26/17 12:00 98.5 78 18 162/83 (109) 98 09/26/17 12:00 81 09/26/17 08:00 81 09/26/17 08:00 Room Air 09/26/17 08:00 98.1 73 18 168/85 (112) 95 09/26/17 06:27 98.6 76 16 161/78 (105) 96 09/26/17 04:01 76 09/26/17 00:32 77 09/25/17 23:20 98.7 77 18 160/77 (104) 98 09/25/17 20:14 99.4 82 18 154/72 (99) 97 09/25/17 20:11 81 09/25/17 20:00 Room Air 09/25/17 16:00 84 09/25/17 16:00 99.0 81 18 153/72 (99) 97 09/25/17 15:50 97 21 I/O 09/25/17 09/25/17 09/25/17 09/26/17 09/26/17 09/26/17 07:00 15:00 23:00 07:00 15:00 23:00 Intake Total 1118 ml 480 ml 1000 ml Balance 1118 ml 480 ml 1000 ml Intake Oral 0 ml 480 ml 0 ml IV Total 1118 ml 1000 ml # Voids 3 2 1 # Bowel Movements 3 2 1 Laboratory Laboratory Tests Test 09/26/17 05:02 White Blood Count 12.1 Red Blood Count 3.56 Hemoglobin 10.9 Hematocrit 31.8 Mean Corpuscular Volume 89.5 Mean Corpuscular Hemoglobin 30.5 Mean Corpuscular Hemoglobin Concent 34.1 Red Cell Distribution Width 13.4 Platelet Count 210 Mean Platelet Volume 8.6 Blood Urea Nitrogen 7 Creatinine 0.44 Random Glucose 92 Total Protein 5.5 Albumin 2.4 Calcium Level 8.0 Alkaline Phosphatase 49 Aspartate Amino Transf (AST/SGOT) 19 Alanine Aminotransferase (ALT/SGPT) 17 Total Bilirubin 0.3 Sodium Level 143 Potassium Level 3.5 Chloride Level 114 Carbon Dioxide Level 18.8 Anion Gap 10 Estimat Glomerular Filtration Rate 149 Date/Time Source Procedure Growth Status 09/24/17 14:10 Blood Peripheral Aerobic Blood Culture - Preliminary NO GROWTH IN 2 DAYS Resulted 09/24/17 14:10 Blood Peripheral Anaerobic Blood Culture - Preliminary NO GROWTH IN 2 DAYS Resulted 09/24/17 19:15 Stool Stool Cryptosporidium Exam - Final NEGATIVE - NO CRYPTOSPORIDIUM ANTIGEN... Complete 09/24/17 19:15 Stool Stool Stool Pus (KARTIK) - Final RARE WBC Complete 09/24/17 19:15 Stool Stool Giardia Antigen (KARTIK) - Final NEGATIVE - NO GIARDIA ANTIGEN DETECTE... Complete 09/24/17 15:00 Urine Clean Catch Legionella Antigen - Final PRESUMPTIVE NEGATIVE FOR LEGIONELLA P... Complete 09/24/17 15:00 Urine Clean Catch Streptococcus pneumoniae Antigen (M - Final PRESUMPTIVE NEGATIVE FOR STREPTOCOCCU... Complete Imaging Last Impressions Chest X-Ray 09/25/17 0800 Signed Impressions: Service Date/Time: Monday, September 25, 2017 09:04 - CONCLUSION: Interval improvement. Leo Brush MD FACR Abdomen/Pelvis CT 09/24/17 1241 Signed Impressions: Service Date/Time: Sunday, September 24, 2017 14:27 - CONCLUSION: Colitis. Patchy pulmonary infiltrates. Calcified uterine fibroid. Salbador Villafana MD ADDENDUM: COMPARISON: CT BRAIN W/O CONTRAST, September 21, 2017, 23:48. We are asked to comment on the mesenteric vasculature. The examination does demonstrate satisfactory visualization of the celiac axis, the SMA and the MAUREEN. All 3 vessels are well-visualized proximally and appear widely patent. Maxi Brush MD Physical Exam HEENT: Normocephalic; atraumatic CHEST: Even/unlabored CARDIAC: RRR ABDOMEN: Soft, nondistended, diffuse tenderness, bowel sounds active EXTREMITIES: No clubbing, cyanosis, or edema. SKIN: Normal; no rash; no jaundice. 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 (Rhonda Arroyo) Assessment and Plan Plan ASSESSMENT - C. diff positive stool and epid positive CT abdomen and pelvis W IV contrast consistent with colitis, also noted that the celiac axis, SMA, and MAUREEN are patent. Pt denies history of C. Diff - History of IVDU- Hepatitis C antibody positive, genotype and quant pending LFTs WNL (09/26) Pt complaining of continued abdominal pain and loose stool. Exam reveals nondistended and soft abdomen although pt states diffuse tenderness. Remain on IV Flagyl and PO Vancomycin. Leukocytosis trending down, pt afebrile. Pt states she was told she is being discharged tomorrow, she is concerned regarding placement, [facility] but states will not be able to go back there. Has discussed with case management. PLAN - Continue with current antibiotics - Recommend outpatient colonoscopy - Follow up in office regarding hepatitis C treatment - GI will sign off, pt seems to be improving and is on appropriate treatment - Can add Cholestyramine for diarrhea if needed - Have pt follow up with GI after discharge Patient has been seen and examined by myself and Dr. Feldman and this note is written on her behalf (Rhonda Arroyo) Physician Comments seen, examined agree with above full liquid diet (Ericka Feldman MD) Rhonda Arroyo September 26, 2017 14:34 Ericka Feldman MD September 26, 2017 15:13
--- NOTE | 2017-09-26 16:00 | PD ---
Physical Exam Narrative I, Dr. Bess, have reviewed the advance practice practitioner's documentation and am in agreement, met with the patient face to face, made the diagnosis, and the medical decision making was done by me. *My assessment and Findings: Patient presents to the emergency department complaining of diarrhea and abdominal pain 1 day. She presented to the emergency department afebrile with vital signs stable. CT scan abdomen and pelvis showed colitis and patchy pulmonary infiltrates chest x-ray showed perihilar opacity with pulmonary congestion urinalysis was negative, but the remaining labs show leukocytosis and elevated BNP. She was treated with Flagyl and Levaquin for colitis and possibly pneumonia. Additionally, she was admitted to the hospital for further evaluation and management. Data Data Last Documented VS Vital Signs Date Time Temp Pulse Resp B/P (MAP) Pulse Ox O2 Delivery O2 Flow Rate FiO2 09/24/17 15:08 82 14 109/58 (75) 95 Room Air 09/24/17 12:37 97.5 Orders Orders Complete Blood Count With Diff (09/24/17 12:41) Comprehensive Metabolic Panel (09/24/17 12:41) Lipase (09/24/17 12:41) Urinalysis - C+S If Indicated (09/24/17 12:41) Ct Abd/Pel W Iv Contrast(Rout) (09/24/17 12:41) Iv Access Insert/Monitor (09/24/17 12:41) Ecg Monitoring (09/24/17 12:41) Oximetry (09/24/17 12:41) Sodium Chlor 0.9% 1000 Ml Inj (Ns 1000 M (09/24/17 12:41) Sodium Chloride 0.9% Flush (Ns Flush) (09/24/17 12:45) Ondansetron Odt (Zofran Odt) (09/24/17 12:45) Lactic Acid Sepsis Protocol (09/24/17 13:29) Blood Culture (09/24/17 13:29) Act Partial Throm Time (Ptt) (09/24/17 13:41) Prothrombin Time / Inr (Pt) (09/24/17 13:41) Potassium Chlor 10 Meq Premix (Kcl 10 Me (09/24/17 14:15) Electrocardiogram (09/24/17 ) Iohexol 350 Inj (Omnipaque 350 Inj) (09/24/17 12:24) Levofloxacin 500 Mg Premix Inj (Levaquin (09/24/17 15:15) Metronidazole 500 Mg Inj (Flagyl 500 Mg (09/24/17 15:15) Levofloxacin 750 Mg Premix Inj (Levaquin (09/24/17 15:15) Potassium Chloride (Kcl) (09/24/17 15:15) Admit Order (Ed Use Only) (09/24/17 15:27) Labs Laboratory Tests Test 09/24/17 13:09 09/24/17 13:40 09/24/17 14:10 09/24/17 15:00 White Blood Count 23.0 TH/MM3 Red Blood Count 4.15 MIL/MM3 Hemoglobin 12.3 GM/DL Hematocrit 36.4 % Mean Corpuscular Volume 87.7 FL Mean Corpuscular Hemoglobin 29.8 PG Mean Corpuscular Hemoglobin Concent 33.9 % Red Cell Distribution Width 13.1 % Platelet Count 221 TH/MM3 Mean Platelet Volume 7.9 FL Neutrophils (%) (Auto) 93.2 % Lymphocytes (%) (Auto) 1.8 % Monocytes (%) (Auto) 4.6 % Eosinophils (%) (Auto) 0.1 % Basophils (%) (Auto) 0.3 % Neutrophils # (Auto) 21.4 TH/MM3 Lymphocytes # (Auto) 0.4 TH/MM3 Monocytes # (Auto) 1.1 TH/MM3 Eosinophils # (Auto) 0.0 TH/MM3 Basophils # (Auto) 0.1 TH/MM3 CBC Comment DIFF FINAL Differential Comment Blood Urea Nitrogen 8 MG/DL Creatinine 0.51 MG/DL Random Glucose 126 MG/DL Total Protein 6.2 GM/DL Albumin 3.0 GM/DL Calcium Level 8.2 MG/DL Alkaline Phosphatase 77 U/L Aspartate Amino Transf (AST/SGOT) 26 U/L Alanine Aminotransferase (ALT/SGPT) 26 U/L Total Bilirubin 0.6 MG/DL Sodium Level 136 MEQ/L Potassium Level 2.9 MEQ/L Chloride Level 104 MEQ/L Carbon Dioxide Level 23.2 MEQ/L Anion Gap 9 MEQ/L Estimat Glomerular Filtration Rate 126 ML/MIN B-Type Natriuretic Peptide 435 PG/ML Lipase 32 U/L Ethyl Alcohol Level LESS THAN 3 MG/DL Prothrombin Time 10.8 SEC Prothromb Time International Ratio 1.1 RATIO Activated Partial Thromboplast Time 29.8 SEC Lactic Acid Level 1.0 mmol/L Urine Color YELLOW Urine Turbidity CLEAR Urine pH 6.5 Urine Specific [place] GREATER THAN 1.050 Urine Protein 30 mg/dL Urine Glucose (UA) NEG mg/dL Urine Ketones NEG mg/dL Urine Occult Blood NEG Urine Nitrite NEG Urine Bilirubin NEG Urine Urobilinogen LESS THAN 2.0 MG/DL Urine Leukocyte Esterase NEG Urine RBC 3 /hpf Urine WBC 2 /hpf Urine Mucus MOD /lpf Microscopic Urinalysis Comment CULT NOT INDICATED Urine Opiates Screen NEG Urine Barbiturates Screen NEG Urine Amphetamines Screen NEG Urine Benzodiazepines Screen NEG Urine Cocaine Screen NEG Urine Cannabinoids Screen NEG MDM Supervised Visit with [facility]: Yes Diagnosis Primary Impression: Colitis Additional Impressions: Leukocytosis Qualified Codes: D72.829 - Elevated white blood cell count, unspecified Pneumonia Qualified Codes: J18.9 - Pneumonia, unspecified organism Hypokalemia Admitting Information Admitting Physician Requests: Admit Condition: Stable Penelope Bess MD September 26, 2017 16:00
[2017-09-26] MEDS: REMOVE OLD PATCH T-DERMAL SCH (21:00)
[2017-09-27] VITALS (12 sets, daily range): BP systolic 123–169; BP diastolic 74–86; PULSE 55–82; RESP 16–20; TEMP 97.7–99.5; O2SAT 95–98
[2017-09-27] MEDS: MORPHINE SULFATE 4 MG/ML INJ IV PUSH PRN ×4 (03:41→18:53)
[2017-09-27] MEDS: metroNIDAZOLE 500 MG INJ 100 ML IV SCH ×3 (05:05→20:51)
[2017-09-27 05:06] LABS: HEMATOCRIT 32.6 % (35.0-46.0); HEMOGLOBIN 11.1 GM/DL (11.6-15.3); MEAN CELL VOLUME 88.2 FL (80.0-100.0); MEAN CORPUSCULAR HEMOGLOBIN 30.1 PG (27.0-34.0); MEAN CORPUSCULAR HGB CONC 34.1 % (32.0-36.0); MEAN PLATELET VOLUME 8.5 FL (7.0-11.0); PLATELET COUNT 215 TH/MM3 (150-450); RED BLOOD COUNT 3.69 MIL/MM3 (4.00-5.30); RED CELL DISTRIBUTION WIDTH 13.6 % (11.6-17.2); WHITE BLOOD COUNT 8.7 TH/MM3 (4.0-11.0)
[2017-09-27 05:31] LABS: BICARBONATE 22.3 MEQ/L (21.0-32.0); CALCIUM 7.9 MG/DL (8.5-10.1); CREATININE 0.4 MG/DL (0.50-1.00)
[2017-09-27] MEDS: RESP: ALBUTEROL 2.5 MG/IPRATROPIUM 0.5 MG NEB (SCH) NEB ×3 (07:39→19:54)
[2017-09-27] MEDS: SODIUM CHLORIDE 0.9% FLUSH 10 ML FLUSH IV FLUSH SCH ×2 (09:00→20:51)
[2017-09-27] MEDS: NS + KCL 40 MEQ INJ 1,000 ML IV SCH (10:06)
[2017-09-27] MEDS: CHOLESTYRAMINE 4 GM PACKET PO SCH (10:08)
[2017-09-27] MEDS: ACETAMINOPHEN/HYDROcodone 325 MG/7.5 MG TAB PO PRN ×3 (10:08→20:49)
[2017-09-27] MEDS: LISINOPRIL 20 MG TAB PO SCH (10:08)
[2017-09-27] MEDS: NICOTINE 14 MG/24 HR PATCH T-DERMAL SCH (10:09)
[2017-09-27] MEDS: VANCOMYCIN 500 MG VIAL (FOR ORAL USE ONLY) PO SCH ×4 (10:09→20:50)
--- NOTE | 2017-09-27 10:14 | HHI.FPPN ---
Subjective Remarks No acute events overnight. Patient sitting up in bed eating breakfast. Blood pressure elevated at 157/74 this morning. Patient states that she is doing mildly better. She has had 4 voids and 5 bowel movements. She endorses moderate lower abdominal pain. She states that she is not ready to go because she has nowhere to go. She does have family and Trupti, an aunt. She is willing to work with hospice case manager to help her figure out housing. (Noemi Orellana MD R1) Objective Vitals Vital Signs Date Time Temp Pulse Resp B/P (MAP) Pulse Ox O2 Delivery O2 Flow Rate FiO2 09/27/17 08:00 98.2 68 20 158/74 (102) 97 09/27/17 04:00 82 09/27/17 03:22 98.1 65 16 157/74 (101) 95 09/27/17 00:00 75 09/26/17 23:30 98.4 70 16 138/71 (93) 98 09/26/17 20:40 Room Air 09/26/17 20:17 98.9 81 16 162/81 (108) 100 09/26/17 20:00 78 09/26/17 19:20 97 21 09/26/17 16:00 98.7 80 16 171/87 (115) 97 09/26/17 16:00 68 09/26/17 12:00 98.5 78 18 162/83 (109) 98 09/26/17 12:00 81 I/O 09/26/17 09/26/17 09/26/17 09/27/17 09/27/17 09/27/17 07:00 15:00 23:00 07:00 15:00 23:00 Intake Total 1000 ml 480 ml 240 ml Output Total 175 ml Balance 1000 ml 305 ml 240 ml Intake Oral 0 ml 480 ml 240 ml IV Total 1000 ml Output Urine Total 175 ml # Voids 1 4 # Bowel Movements 1 4 1 (Noemi Orellana MD R1) Result Diagram: 09/27/17 03409/27/17 034 Objective Remarks GENERAL: Thin female, sitting up in bed and eating breakfast, in no acute distress SKIN: No rashes, ecchymoses or lesions. Cool and dry. CARDIOVASCULAR: Regular rate and rhythm without murmurs, gallops, or rubs. RESPIRATORY: Clear to auscultation. Breath sounds equal bilaterally. GASTROINTESTINAL: Abdomen soft, moderate tenderness in the lower abdominal quadrant unchanged from prior exam, nondistended. No hepato-splenomegaly, or palpable masses. No guarding. MUSCULOSKELETAL: Extremities without clubbing, cyanosis, or edema. No joint tenderness, effusion, or edema noted. No calf tenderness. Negative Homans sign bilaterally. NEUROLOGICAL: Awake and sleepy. Normal speech. (Noemi Orellana MD R1) A/P Assessment and Plan 56-year-old female with CAD status post stent 2, anxiety, depression, history of IV drug use, and recent encephalopathy presents to the ED via EMS for abdominal pain. Admitted for SIRS, further management, and workup. Discharge Planning Anticipate discharge tomorrow if patient continues to improve clinically Echo pending Case management working on placement (Noemi Orellana MD R1) Problem List: (1) SIRS (systemic inflammatory response syndrome) ICD Codes: R65.10 - Systemic inflammatory response syndrome (SIRS) of non- infectious origin without acute organ dysfunction Status: Acute Plan: Patient meets SIRS criteria upon admission due to tachycardia and elevated white blood cell count and known source of infection See plan as below (2) C. difficile colitis ICD Codes: A04.72 - Enterocolitis due to Clostridium difficile, not specified as recurrent Plan: C. difficile positive, treating with oral vancomycin 125 mg p.o. 4 times daily, will plan on doing a total 14 day course Giardia and Cryptosporidium negative Final stool culture resulted with no enteric pathogens detected by PCR Decrease IV fluids to 42mls/hr until patient has better p.o. intake NG tube, patient refused Continue patient on Flagyl 500 mg IV every 8 hours GI consulted, recommendations appreciated -Colonoscopy as outpatient, continue antibiotics, supportive care -Follow-up in office regarding Hepatitis C treatment -Start Cholestyramine 4 gm PO daily today for diarrhea -GI signing off Prior Labs & Imagin day history of abdominal pain and 5 day history of nonbloody, watery diarrhea. Colitis versus GI bleed versus mesenteric ischemia Abdominal CT demonstrates colitis, patchy pulmonary infiltrates, calcified uterine fibroid, celiac axis, the SMA, and the MAUREEN are well visualized approximately and appears widely patent. White count elevated at 23 on admission, improved to 15.6 today Hemoccult-positive, performed in the ED (3) Abnormal CXR (chest x-ray) ICD Codes: R93.8 - Abnormal findings on diagnostic imaging of other specified body structures Plan: CT positive for pulmonary infiltrates Chest x-ray demonstrates highly hilar opacities consistent with central pulmonary vascular congestion BNP 263 2D echo complete with Doppler pending Incentive spirometry Patient not requiring oxygen at this time Slight wheezes heard on exam today, will order DuoNeb 1 amp every 6 (4) Hepatitis C ICD Codes: B19.20 - Hepatitis C Status: Acute Plan: Patient positive for hep C. Patient reports that she has positive for hep C in the past due to IV drug use. Patient reports not being treated. Genotype and quantitative pending Patient will follow up with GI outpatient for hepatitis C treatment (5) Hypokalemia ICD Codes: E87.6 - Hypokalemia Status: Resolved Plan: Potassium of 2.9 on admission Resolved Continue to monitor (6) History of drug use ICD Codes: Z87.898 - Personal history of other specified conditions Plan: Urine drug screen negative to date Ethanol level less than 3 2D echo complete with Doppler pending HIV negative (7) HTN (hypertension) ICD Codes: I10 - Essential (primary) hypertension Plan: Blood pressure elevated at 160s/70s, possible due to fluids, will decrease to 42mls/hr Continue lisinopril 20mg daily Clonidine 0.1mg PO q6h PRN for BP > 180/100 (8) Nutrition, metabolism, and development symptoms ICD Codes: R63.8 - Other symptoms and signs concerning food and fluid intake Plan: Diet: Full liquid diet, progress diet as tolerated Fluids 42 mls per hour normal saline Electrolytes: monitor and replace as needed Monitor I's and O's, vitals every 4 Patient on seizure precautions [facility] protocol Case management consulted (Noemi Orellana MD R1) Problem List: (1) SIRS (systemic inflammatory response syndrome) ICD Codes: R65.10 - Systemic inflammatory response syndrome (SIRS) of non- infectious origin without acute organ dysfunction Status: Acute Plan: Patient meets SIRS criteria upon admission due to tachycardia and elevated white blood cell count and known source of infection See plan as below (2) C. difficile colitis ICD Codes: A04.72 - Enterocolitis due to Clostridium difficile, not specified as recurrent Plan: C. difficile positive, treating with oral vancomycin 125 mg p.o. 4 times daily, will plan on doing a total 14 day course Giardia and Cryptosporidium negative Final stool culture resulted with no enteric pathogens detected by PCR Decrease IV fluids to 42mls/hr until patient has better p.o. intake NG tube, patient refused Continue patient on Flagyl 500 mg IV every 8 hours GI consulted, recommendations appreciated -Colonoscopy as outpatient, continue antibiotics, supportive care -Follow-up in office regarding Hepatitis C treatment -Start Cholestyramine 4 gm PO daily today for diarrhea -GI signing off Prior Labs & Imagin day history of abdominal pain and 5 day history of nonbloody, watery diarrhea. Colitis versus GI bleed versus mesenteric ischemia Abdominal CT demonstrates colitis, patchy pulmonary infiltrates, calcified uterine fibroid, celiac axis, the SMA, and the MAURENE are well visualized approximately and appears widely patent. White count elevated at 23 on admission, improved to 15.6 today Hemoccult-positive, performed in the ED (3) Abnormal CXR (chest x-ray) ICD Codes: R93.8 - Abnormal findings on diagnostic imaging of other specified body structures Plan: CT positive for pulmonary infiltrates Chest x-ray demonstrates highly hilar opacities consistent with central pulmonary vascular congestion BNP 263 2D echo complete with Doppler pending Incentive spirometry Patient not requiring oxygen at this time Slight wheezes heard on exam today, will order DuoNeb 1 amp every 6 (4) Hepatitis C ICD Codes: B19.20 - Hepatitis C Status: Acute Plan: Patient positive for hep C. Patient reports that she has positive for hep C in the past due to IV drug use. Patient reports not being treated. Genotype and quantitative pending Patient will follow up with GI outpatient for hepatitis C treatment (5) Hypokalemia ICD Codes: E87.6 - Hypokalemia Status: Resolved Plan: Potassium of 2.9 on admission Resolved Continue to monitor (6) History of drug use ICD Codes: Z87.898 - Personal history of other specified conditions Plan: Urine drug screen negative to date Ethanol level less than 3 2D echo complete with Doppler pending HIV negative (7) HTN (hypertension) ICD Codes: I10 - Essential (primary) hypertension Plan: Blood pressure elevated at 160s/70s, possible due to fluids, will decrease to 42mls/hr Continue lisinopril 20mg daily Clonidine 0.1mg PO q6h PRN for BP > 180/100 (8) Nutrition, metabolism, and development symptoms ICD Codes: R63.8 - Other symptoms and signs concerning food and fluid intake Plan: Diet: Full liquid diet, progress diet as tolerated Fluids 42 mls per hour normal saline Electrolytes: monitor and replace as needed Monitor I's and O's, vitals every 4 Patient on seizure precautions [facility] protocol Case management consulted See the residents documentation for details. I saw and evaluated the patient regarding the gregg portions of this evaluation and agree with the residents findings and plans as written. Parts of this note were created using [employer] voice recognition software program. While efforts were made to correct any mistakes made by this software, some mistakes, errors, and omissions may remain in the final note that were not caught when the note was originally created. Plan of care was discussed and agreed upon with the patient as specifically documented in the above note. An opportunity to ask questions with explanation was provided. Patient voiced understanding on all information reviewed and discussed. (Sachin Guerra MD) Noemi Orellana MD R1 September 27, 2017 10:14 Sachin Guerra MD September 28, 2017 10:10
[2017-09-27] MEDS ORDERED: VANC125C3 PO (11:54)
[2017-09-27] MEDS ORDERED: METR-1 PO (11:56)
--- NOTE | 2017-09-27 13:17 | ECHRPT ---
Indication: Acute and subacute endocarditis, unspecified CONCLUSIONS Normal left ventricular size and wall thickness. The left ventricular systolic function is normal wi th an estimated ejection fraction in the range of 60-65%. Left ventricular diastolic function parameters a re normal. The aortic root and proximal ascending aorta are not well visualized. Mild mitral valve regurgitation. Moderate aortic valve regurgitation. Aortic valve sclerosis is present. Diffuse calcification of the aortic valve. No aortic valve stenosis. There is mild tricuspid valve regurgitation. The estimated pulmonary arterial pressure is 36.4 mmHg. Trivial pulmonary valve regurgitation. The inferior vena cava is dilated. BP: / HR: Rhythm: MEASUREMENTS (Male / Female) Normal Values Technical Quality: 2D ECHO LV Diastolic Diameter PLAX 4.5 cm 4.2 - 5.9 / 3.9 - 5.3 cm LV Systolic Diameter PLAX 3.2 cm IVS Diastolic Thickness 1.1 cm 0.6 - 1.0 / 0.6 - 0.9 cm LVPW Diastolic Thickness 1.0 cm 0.6 - 1.0 / 0.6 - 0.9 cm LV Relative Wall Thickness 0.5 RV Internal Dim ED PLAX 2.4 cm M-MODE Aortic Root Diameter MM 2.9 cm LA Systolic Diameter MM 3.6 cm LA Ao Ratio MM 1.3 AV Cusp Separation MM 1.9 cm DOPPLER AI Peak Velocity 527.5 cm/s AI Peak Gradient 111.3 mmHg AI Pressure Half Time 301.5 ms Mitral E Point Velocity 82.4 cm/s Mitral A Point Velocity 82.4 cm/s Mitral E to A Ratio 1.0 LV E' Lateral Velocity 9.8 cm/s Mitral E to LV E' Lateral Ratio 8.5 TR Peak Velocity 257.0 cm/s TR Peak Gradient 26.4 mmHg Right Atrial Pressure 10.0 mmHg Pulmonary Artery Systolic Pressu 36.4 mmHg Right Ventricular Systolic Press 36.4 mmHg FINDINGS LEFT VENTRICLE Normal left ventricular size and wall thickness. The left ventricular systolic function is normal wi th an estimated ejection fraction in the range of 60-65%. Left ventricular diastolic function parameters a re normal. RIGHT VENTRICLE Normal right ventricular size and systolic function. LEFT ATRIUM The left atrial size is normal. RIGHT ATRIUM The right atrial size is normal. ATRIAL SEPTUM Normal atrial septal thickness without atrial level shunting by limited color doppler interrogation. AORTA The aortic root and proximal ascending aorta are not well visualized. MITRAL VALVE Mild mitral valve regurgitation. AORTIC VALVE Moderate aortic valve regurgitation. Aortic valve sclerosis is present. Diffuse calcification of the aortic valve. No aortic valve stenosis. TRICUSPID VALVE There is mild tricuspid valve regurgitation. The estimated pulmonary arterial pressure is 36.4 mmHg. PULMONARY VALVE Trivial pulmonary valve regurgitation. VESSELS The inferior vena cava is dilated. PERICARDIUM No pericardial effusion. Chris Fernández MD, FACC (Electronically Signed) Final Date:27 Sep 2017 13:16
[2017-09-27] MEDS: HEPARIN SODIUM - SQ 10,000 UNITS/ML VIAL SQ SCH (13:47)
[2017-09-27] MEDS: REMOVE OLD PATCH T-DERMAL SCH (20:51)
[2017-09-28] VITALS (8 sets, daily range): BP systolic 143–186; BP diastolic 73–89; PULSE 57–72; RESP 16–20; TEMP 97.8–98.9; O2SAT 95–97
[2017-09-28] MEDS: MORPHINE SULFATE 4 MG/ML INJ IV PUSH PRN ×5 (00:09→21:30)
[2017-09-28] MEDS: HEPARIN SODIUM - SQ 10,000 UNITS/ML VIAL SQ SCH ×3 (00:09→23:47)
[2017-09-28] MEDS: ACETAMINOPHEN/HYDROcodone 325 MG/7.5 MG TAB PO PRN ×5 (03:54→23:47)
[2017-09-28] MEDS: metroNIDAZOLE 500 MG INJ 100 ML IV SCH (05:28)
[2017-09-28] MEDS: NS + KCL 40 MEQ INJ 1,000 ML IV SCH (05:31)
[2017-09-28 07:15] LABS: HEMATOCRIT 34.9 % (35.0-46.0); MEAN CELL VOLUME 88.3 FL (80.0-100.0); MEAN CORPUSCULAR HEMOGLOBIN 30.4 PG (27.0-34.0); MEAN CORPUSCULAR HGB CONC 34.4 % (32.0-36.0); MEAN PLATELET VOLUME 8.5 FL (7.0-11.0); PLATELET COUNT 222 TH/MM3 (150-450); RED BLOOD COUNT 3.95 MIL/MM3 (4.00-5.30); RED CELL DISTRIBUTION WIDTH 13.3 % (11.6-17.2); WHITE BLOOD COUNT 9.3 TH/MM3 (4.0-11.0)
[2017-09-28 07:39] LABS: BICARBONATE 23.1 MEQ/L (21.0-32.0); CREATININE 0.43 MG/DL (0.50-1.00)
[2017-09-28] MEDS: RESP: ALBUTEROL 2.5 MG/IPRATROPIUM 0.5 MG NEB (SCH) NEB ×3 (08:00→19:50)
[2017-09-28] MEDS: SODIUM CHLORIDE 0.9% FLUSH 10 ML FLUSH IV FLUSH SCH ×2 (09:40→21:00)
[2017-09-28] MEDS: VANCOMYCIN 500 MG VIAL (FOR ORAL USE ONLY) PO SCH ×4 (09:42→21:00)
[2017-09-28] MEDS: LISINOPRIL 20 MG TAB PO SCH (09:42)
[2017-09-28] MEDS: CHOLESTYRAMINE 4 GM PACKET PO SCH (09:42)
[2017-09-28] MEDS: NICOTINE 14 MG/24 HR PATCH T-DERMAL SCH (09:48)
--- NOTE | 2017-09-28 10:15 | HHI.FPPN ---
Subjective Remarks Patient lying in bed this AM, appears sleepy and agitated. States that she is unwilling to go home because "she does not want to be on the streets." States that she has a plan to hurt herself, but "does not want to talk about the plan." Reports that she wants to see a psychiatrist. Blood pressure elevated at 174/86 this AM. Patient has not received blood pressure meds yet. 6 Voids, 2 BMs (Noemi Orellana MD R1) Objective Vitals Vital Signs Date Time Temp Pulse Resp B/P (MAP) Pulse Ox O2 Delivery O2 Flow Rate FiO2 09/28/17 09:12 96 21 09/28/17 08:00 97.8 62 20 186/89 (121) 95 182/86 (118) 09/28/17 05:52 18 09/28/17 05:52 18 09/28/17 04:00 Room Air 09/28/17 03:45 98.9 68 16 174/86 (115) 96 166/80 (108) 09/28/17 03:44 68 09/28/17 00:00 Room Air 09/27/17 23:47 55 09/27/17 23:08 98.8 64 16 123/84 (97) 96 09/27/17 20:50 Room Air 09/27/17 19:54 97 21 09/27/17 19:47 72 09/27/17 19:38 99.5 68 16 133/86 (102) 97 09/27/17 17:00 66 09/27/17 16:00 97.9 65 20 169/80 (109) 98 09/27/17 12:00 64 09/27/17 12:00 97.7 73 20 169/81 (110) 97 09/27/17 11:58 Room Air I/O 09/27/17 09/27/17 09/27/17 09/28/17 09/28/17 09/28/17 07:00 15:00 23:00 07:00 15:00 23:00 Intake Total 240 ml 820 ml 1450 ml 100 ml Output Total 600 ml Balance 240 ml 820 ml 850 ml 100 ml Intake Oral 240 ml 720 ml 450 ml IV Total 100 ml 1000 ml 100 ml Output Urine Total 600 ml # Voids 4 3 3 # Bowel Movements 1 1 1 (Noemi Orellana MD R1) Result Diagram: 09/28/17 0636 09/28/17 0636 Objective Remarks GENERAL: Thin female, lying in bed, sleepy and agitated SKIN: No rashes, ecchymoses or lesions. Cool and dry. CARDIOVASCULAR: Regular rate and rhythm without murmurs, gallops, or rubs. RESPIRATORY: Clear to auscultation. Breath sounds equal bilaterally. GASTROINTESTINAL: Abdomen soft, moderate tenderness in the lower abdominal quadrant unchanged from prior exam, nondistended. No hepato-splenomegaly, or palpable masses. No guarding. MUSCULOSKELETAL: Extremities without clubbing, cyanosis, or edema. No joint tenderness, effusion, or edema noted. No calf tenderness. Negative Homans sign bilaterally. NEUROLOGICAL: Awake and sleepy. Normal speech. (Noemi Orellana MD R1) A/P Assessment and Plan 56-year-old female with CAD status post stent 2, anxiety, depression, history of IV drug use, and recent encephalopathy presents to the ED via EMS for abdominal pain. Admitted for SIRS, further management, and workup. Discharge Planning Pending Psychiatry consult Pending PT evaluation Case management working on placement (Noemi Orellana MD R1) Problem List: (1) SIRS (systemic inflammatory response syndrome) ICD Codes: R65.10 - Systemic inflammatory response syndrome (SIRS) of non- infectious origin without acute organ dysfunction Status: Acute Plan: Patient meets SIRS criteria upon admission due to tachycardia and elevated white blood cell count and known source of infection See plan as below (2) C. difficile colitis ICD Codes: A04.72 - Enterocolitis due to Clostridium difficile, not specified as recurrent Plan: C. difficile positive, treating with oral vancomycin 125 mg p.o. 4 times daily, will plan on doing a total 14 day course- started on 09/25 Continue patient on Flagyl 500 mg IV every 8 hours- started on 09/25, will transition to PO Flagyl today Continue Cholestyramine 4 gm PO daily today for diarrhea Giardia and Cryptosporidium negative Final stool culture resulted with no enteric pathogens detected by PCR Decrease IV fluids to 42mls/hr until patient has better p.o. intake NG tube, patient refused GI consulted, recommendations appreciated -Colonoscopy as outpatient, continue antibiotics, supportive care -Follow-up in office regarding Hepatitis C treatment -GI signing off Prior Labs & Imagin day history of abdominal pain and 5 day history of nonbloody, watery diarrhea. Colitis versus GI bleed versus mesenteric ischemia Abdominal CT demonstrates colitis, patchy pulmonary infiltrates, calcified uterine fibroid, celiac axis, the SMA, and the MAUREEN are well visualized approximately and appears widely patent. White count elevated at 23 on admission, improved to 15.6 today Hemoccult-positive, performed in the ED (3) Depression ICD Codes: F32.9 - Major depressive disorder, single episode, unspecified Status: Acute Plan: Patient states that she has plans of hurting herself. Reports that she tried to hurt herself in the past, was not specific. Hx of depression. Psychiatry consulted for possible suicidal ideation, appreciate recommendations Sitter ordered Patient is stable and can be cleared from a medical standpoint if she were to transfer over to the inpatient psych unit (4) Abnormal CXR (chest x-ray) ICD Codes: R93.8 - Abnormal findings on diagnostic imaging of other specified body structures Plan: CT positive for pulmonary infiltrates Chest x-ray demonstrates highly hilar opacities consistent with central pulmonary vascular congestion BNP 263 2D echo complete with Doppler, EF of 60-65%, moderate aortic valve regurgitation , aortic valve sclerosis, no vegetations Incentive spirometry Patient not requiring oxygen at this time Continue DuoNeb 1 amp every 6 (5) Hepatitis C ICD Codes: B19.20 - Hepatitis C Status: Acute Plan: Patient positive for hep C. Patient reports that she has positive for hep C in the past due to IV drug use. Patient reports not being treated. Genotype and quantitative pending Patient will follow up with GI outpatient for hepatitis C treatment (6) Hypokalemia ICD Codes: E87.6 - Hypokalemia Status: Resolved Plan: Potassium of 2.9 on admission Resolved Continue to monitor (7) History of drug use ICD Codes: Z87.898 - Personal history of other specified conditions Plan: Urine drug screen negative to date Ethanol level less than 3 2D echo complete with Doppler demonstrates no vegetations HIV negative (8) HTN (hypertension) ICD Codes: I10 - Essential (primary) hypertension Plan: Blood pressure elevated at 174/86, discontinued fluids Continue lisinopril 20mg daily Clonidine 0.1mg PO q6h PRN for BP > 180/100 (9) Nutrition, metabolism, and development symptoms ICD Codes: R63.8 - Other symptoms and signs concerning food and fluid intake Plan: Diet: Full liquid diet, progress diet as tolerated Fluids PO hydration Electrolytes: monitor and replace as needed Monitor I's and O's, vitals every 4 Patient on seizure precautions [facility] protocol Case management consulted (Noemi Orellana MD R1) Problem List: (1) SIRS (systemic inflammatory response syndrome) ICD Codes: R65.10 - Systemic inflammatory response syndrome (SIRS) of non- infectious origin without acute organ dysfunction Status: Acute Plan: Patient meets SIRS criteria upon admission due to tachycardia and elevated white blood cell count and known source of infection See plan as below (2) C. difficile colitis ICD Codes: A04.72 - Enterocolitis due to Clostridium difficile, not specified as recurrent Plan: C. difficile positive, treating with oral vancomycin 125 mg p.o. 4 times daily, will plan on doing a total 14 day course- started on 09/25 Continue patient on Flagyl 500 mg IV every 8 hours- started on 09/25, will transition to PO Flagyl today Continue Cholestyramine 4 gm PO daily today for diarrhea Giardia and Cryptosporidium negative Final stool culture resulted with no enteric pathogens detected by PCR Decrease IV fluids to 42mls/hr until patient has better p.o. intake NG tube, patient refused GI consulted, recommendations appreciated -Colonoscopy as outpatient, continue antibiotics, supportive care -Follow-up in office regarding Hepatitis C treatment -GI signing off Prior Labs & Imagin day history of abdominal pain and 5 day history of nonbloody, watery diarrhea. Colitis versus GI bleed versus mesenteric ischemia Abdominal CT demonstrates colitis, patchy pulmonary infiltrates, calcified uterine fibroid, celiac axis, the SMA, and the MAUREEN are well visualized approximately and appears widely patent. White count elevated at 23 on admission, improved to 15.6 today Hemoccult-positive, performed in the ED (3) Depression ICD Codes: F32.9 - Major depressive disorder, single episode, unspecified Status: Acute Plan: Patient states that she has plans of hurting herself. Reports that she tried to hurt herself in the past, was not specific. Hx of depression. Psychiatry consulted for possible suicidal ideation, appreciate recommendations Sitter ordered Patient is stable and can be cleared from a medical standpoint if she were to transfer over to the inpatient psych unit (4) Abnormal CXR (chest x-ray) ICD Codes: R93.8 - Abnormal findings on diagnostic imaging of other specified body structures Plan: CT positive for pulmonary infiltrates Chest x-ray demonstrates highly hilar opacities consistent with central pulmonary vascular congestion BNP 263 2D echo complete with Doppler, EF of 60-65%, moderate aortic valve regurgitation , aortic valve sclerosis, no vegetations Incentive spirometry Patient not requiring oxygen at this time Continue DuoNeb 1 amp every 6 (5) Hepatitis C ICD Codes: B19.20 - Hepatitis C Status: Acute Plan: Patient positive for hep C. Patient reports that she has positive for hep C in the past due to IV drug use. Patient reports not being treated. Genotype and quantitative pending Patient will follow up with GI outpatient for hepatitis C treatment (6) Hypokalemia ICD Codes: E87.6 - Hypokalemia Status: Resolved Plan: Potassium of 2.9 on admission Resolved Continue to monitor (7) History of drug use ICD Codes: Z87.898 - Personal history of other specified conditions Plan: Urine drug screen negative to date Ethanol level less than 3 2D echo complete with Doppler demonstrates no vegetations HIV negative (8) HTN (hypertension) ICD Codes: I10 - Essential (primary) hypertension Plan: Blood pressure elevated at 174/86, discontinued fluids Continue lisinopril 20mg daily Clonidine 0.1mg PO q6h PRN for BP > 180/100 (9) Nutrition, metabolism, and development symptoms ICD Codes: R63.8 - Other symptoms and signs concerning food and fluid intake Plan: Diet: Full liquid diet, progress diet as tolerated Fluids PO hydration Electrolytes: monitor and replace as needed Monitor I's and O's, vitals every 4 Patient on seizure precautions [facility] protocol Case management consulted See the residents documentation for details. I saw and evaluated the patient regarding the gregg portions of this evaluation and agree with the residents findings and plans as written. Parts of this note were created using [employer] voice recognition software program. While efforts were made to correct any mistakes made by this software, some mistakes, errors, and omissions may remain in the final note that were not caught when the note was originally created. Plan of care was discussed and agreed upon with the patient as specifically documented in the above note. An opportunity to ask questions with explanation was provided. Patient voiced understanding on all information reviewed and discussed. (Sachin Guerra MD) Noemi Orellana MD R1 September 28, 2017 10:15 Sachin Guerra MD September 28, 2017 10:45
[2017-09-28] MEDS: metroNIDAZOLE 500 MG TAB PO SCH ×2 (15:14→21:30)
--- NOTE | 2017-09-28 17:16 | PD.PSY.CON ---
Provisional Diagnosis Admission Date September 24, 2017 at 15:28 [facility] I. 1. Adjustment disorder with depressed mood Suspect some degree of symptom exaggeration or malingering for nursing home 2. History of polysubstance abuse [facility] II. 1. Antisocial personality traits History of Present Illness Service Psychiatry Consult Requested By Dr. Orellana Reason for Consult "56-year-old female with possible suicidal ideation, states that she had a plan in the past" Primary Care Physician Unknown HPI Ms. Gore is a 56-year-old female with a reported history of depression versus bipolar disorder who is presently admitted to the medical floor for management of C. difficile colitis. Reviewing the electronic medical record, I note that the patient was recently admitted to the medical floor for altered mental status and was seen in consultation at that time by Dr. Ramirez. Patient seen and examined. Chart reviewed. Case discussed with nursing staff. Sitter is at the bedside. On my examination today, the patient presents as fairly manipulative. She tells me that she has been kicked out of her [facility] facility because she was suspected of abusing drugs, although she insists that she has not been abusing substances. I note that an extended urine toxicology screen has been ordered and is pending. She is presently without stable housing. In the setting of this stressor she has been feeling more distressed. She has been having thoughts that "I don't wanna live." She reports vague suicidal thoughts earlier in the hospital stay, although her report of these are couched in a quite manipulative fashion. She refuses to disclose the suicide plan that she had when she was having suicidal thoughts. Besides low mood, I can appreciate no other real depressive symptoms. Although she does initially present as somewhat anhedonic and withdrawn, this is quite variable, and the patient becomes considerably more animated at times. She reports no hypomanic or manic symptoms presently, although she does allude to a history of "manias" in the past, but it is unclear whether these were associated with substance use, and moreover she has been treated exclusively in the past with an antidepressant. She denies any audiovisual hallucinations. I can elicit no paranoia, no ideas of reference, no other delusional material. Some antisocial personality traits are noted. The remainder of the psychiatric ROS is negative. No acute physical complaints. Past psychiatric history: The patient reports a history of depression versus bipolar disorder. She is not currently under the care of a psychiatrist. She reports that she has most recently been managed with Celexa, and I see from previous admission that the dose was 30 mg daily. She has also been on Zoloft in the past. She denies a history of psychiatric admissions. Denies a history of suicide attempts. Family history: The patient denies a family history of diagnosed mental illness although she does note that her mother completed suicide without receiving a formal mental illness diagnosis. Chemical dependency history: The patient reports a history of opiate abuse. She has also abused cocaine in the past. She has been clean for the past year by her report. Social history: The patient had been residing in [facility] for the last year but has been evicted for suspected substance use by her report. She has a daughter who lives in [place] who reportedly cannot care for her. She is single. She is college educated. 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 She denies any history. She has been on probation for the last 15 years related to bank robberies. She denies any access to guns or firearms. Review of Systems Except as stated in HPI: all other systems reviewed are Neg Past Family Social History Coded Allergies: nitroglycerin (Verified Allergy, Severe, Anaphylaxis, 09/24/17) doxycycline (Verified Adverse Reaction, Intermediate, Shortness of Breath , 09/24/17) minocycline (Verified Adverse Reaction, Intermediate, Shortness of Breath , 09/24/17) tigecycline (Verified Adverse Reaction, Intermediate, Shortness of Breath , 09/24/17) Past Medical History See EMR Active Scripts Metronidazole (Flagyl) 500 Mg Tab, 500 MG PO Q8HR for Infection, #32 TAB 0 Refills Take one tablet every 8 hours Prov:Noemi Orellana MD R1 09/27/17 Vancomycin (Vancomycin) 125 Mg Cap, 125 MG PO QID for Infection, #43 CAP 0 Refills Take one tablet every 6 hours Prov:Noemi Orellana MD R1 09/27/17 Potassium Chloride ER (Klor-Con 10) 10 Meq Tab, 10 MEQ PO DAILY for Electrolyte Replacement, #10 TAB Prov:Madina Swain MD 09/19/17 Nifedipine (Nifedipine ER) 90 Mg Tab, 90 MG PO DAILY for Blood Pressure Management, #30 TAB Prov:Madina Swain MD 09/19/17 Ibuprofen (Ibuprofen) 600 Mg Tab, 600 MG PO Q6H Y for Pain/Inflammation, #20 TAB 0 Refills Prov:Daniel Nash MD 06/29/17 Reported Medications Methocarbamol (Methocarbamol) 500 Mg Tab, 500 MG PO QID Y for PAIN SCALE 1 TO 5 , #120 TAB 0 Refills 06/03/16 Lamotrigine (Lamotrigine) 25 Mg Tab, 50 MG PO BID for Control Seizures, #60 TAB 0 Refills 06/03/16 Medroxyprogesterone Inj (Depo-Provera Inj) 150 Mg/Ml Inj, 150 MG IM ONCE for Control, #1 VIAL 0 Refills 06/03/16 Citalopram (Celexa) 20 Mg Tab, 30 MG PO DAILY for Control Depression, #30 TAB 0 Refills 06/03/16 Aspirin (Aspirin) 81 Mg Chew, 81 MG PO DAILY, TAB 0 Refills 06/03/16 Current Medications Medications (Trade) Dose Ordered Sig/[place] Route Start Time Stop Time Status Last Admin (NS Flush) 2 ml UNSCH PRN IV FLUSH 09/24/17 16:45 (NS Flush) 2 ml BID IV FLUSH 09/24/17 21:00 09/28/17 09:40 (Zofran Odt) 4 mg Q6H PRN PO 09/24/17 18:00 09/26/17 21:25 (Narcan Inj) 0.4 mg UNSCH PRN IV PUSH 09/24/17 16:45 (Romazicon Inj) 0.2 mg Q1M PRN IV PUSH 09/24/17 16:45 (Ativan) 1 mg Q4H PRN PO 09/24/17 16:45 (Ativan Inj) 1 mg Q4H PRN IV PUSH 09/24/17 16:45 (Ativan) 2 mg Q2H PRN PO 09/24/17 16:45 (Ativan Inj) 2 mg Q2H PRN IV PUSH 09/24/17 16:45 (Ativan Inj) 2 mg Q1H PRN IV PUSH 09/24/17 16:45 (Ativan Inj) 2 mg Q15M PRN IV PUSH 09/24/17 16:45 (Tylenol Supp) 650 mg Q6H PRN RECTAL 09/24/17 17:00 (Habitrol 14 Mg Patch.24 Hr) 1 patch DAILY T-DERMAL 09/24/17 18:00 09/28/17 09:48 Miscellaneous Information 1 HS T-DERMAL 09/24/17 21:00 09/27/17 20:51 (VANCOMYCIN for oral use only) 125 mg QID PO 09/25/17 06:15 09/28/17 11:51 (Heparin Inj) 5,000 units Q12H SQ 09/25/17 12:00 09/28/17 00:09 (Prinivil) 20 mg DAILY PO 09/26/17 09:00 09/28/17 09:42 (Catapres) 0.1 mg Q6H PRN PO 09/26/17 07:30 09/28/17 10:10 (Duoneb Neb) 1 ampule Q6HR WHILE AWAKE NEB NEB 09/26/17 14:00 09/28/17 08:00 (Morphine Inj) 2 mg Q3H PRN IV PUSH 09/26/17 10:45 09/28/17 11:45 (Milmay 5-325 Mg) 1 tab Q4H PRN PO 09/26/17 10:45 (Milmay 7.5-325 Mg) 1 tab Q4H PRN PO 09/26/17 10:45 09/28/17 15:14 (Questran 4 Gm Pkt) 4 gm DAILY PO 09/27/17 09:00 09/28/17 09:42 (Flagyl) 500 mg Q8HR PO 09/28/17 14:00 09/28/17 15:14 Patient's Strengths (min. 2) Able to access clinical care. Verbally fluent. Physical Exam Physical exam completed by ED provider. On my examination today, the patient appears to be in no acute physical distress. No motor abnormalities noted. Labs and vitals reviewed: Vital Signs Vital Signs Date Time Temp Pulse Resp B/P (MAP) Pulse Ox O2 Delivery O2 Flow Rate FiO2 09/28/17 12:00 98.2 71 19 165/81 (109) 97 160/80 (106) 09/28/17 09:12 21 09/28/17 08:00 Room Air I/O 09/28/17 09/28/17 09/29/17 08:00 16:00 00:00 Intake Total 1550 ml Output Total 600 ml Balance 950 ml Lab Results Laboratory Tests Test 09/24/17 13:09 09/24/17 13:40 09/24/17 14:10 09/24/17 15:00 Lipase 32 U/L Ethyl Alcohol Level LESS THAN 3 MG/DL Prothrombin Time 10.8 SEC Prothromb Time International Ratio 1.1 RATIO Activated Partial Thromboplast Time 29.8 SEC Lactic Acid Level 1.0 mmol/L Urine Color YELLOW Urine Turbidity CLEAR Urine pH 6.5 Urine Specific [facility] GREATER THAN 1.050 Urine Protein 30 mg/dL Urine Glucose (UA) NEG mg/dL Urine Ketones NEG mg/dL Urine Occult Blood NEG Urine Nitrite NEG Urine Bilirubin NEG Urine Urobilinogen LESS THAN 2.0 MG/DL Urine Leukocyte Esterase NEG Urine RBC 3 /hpf Urine WBC 2 /hpf Urine Mucus MOD /lpf Microscopic Urinalysis Comment CULT NOT INDICATED Urine Opiates Screen NEG Urine Barbiturates Screen NEG Urine Amphetamines Screen NEG Urine Benzodiazepines Screen NEG Urine Cocaine Screen NEG Urine Cannabinoids Screen NEG Test 09/24/17 19:15 09/24/17 20:00 09/25/17 06:30 09/25/17 10:40 Stool C. difficile Toxin (PCR) POSITIVE Stl C. difficile Toxin Epiderm 027 PRESUMPTIVE POSITIVE Magnesium Level 2.0 MG/DL Hepatitis A IgM Antibody NONREACTIVE Hepatitis B Surface Antigen NONREACTIVE Hepatitis B Core IgM Antibody NONREACTIVE Hepatitis C IgG Antibody REACTIVE Neutrophils (%) (Auto) 91.7 % Lymphocytes (%) (Auto) 4.3 % Monocytes (%) (Auto) 3.7 % Eosinophils (%) (Auto) 0.1 % Basophils (%) (Auto) 0.2 % Neutrophils # (Auto) 14.3 TH/MM3 Lymphocytes # (Auto) 0.7 TH/MM3 Monocytes # (Auto) 0.6 TH/MM3 Eosinophils # (Auto) 0.0 TH/MM3 Basophils # (Auto) 0.0 TH/MM3 CBC Comment DIFF FINAL Differential Comment B-Type Natriuretic Peptide 263 PG/ML Hepatitis C RNA Genotype 4 Hepatitis C RNA (PCR) IUs/ml [id number] IU/mL Hepatitis C RNA (PCR) log IUs/ml 5.88 Test 09/25/17 12:48 09/26/17 05:02 09/28/17 06:36 HIV (1&2) Ab and P24 Ag, 4th Gener NONREACTIVE Blood Urea Nitrogen 7 MG/DL 4 MG/DL Creatinine 0.44 MG/DL 0.43 MG/DL Random Glucose 92 MG/DL 90 MG/DL Total Protein 5.5 GM/DL Albumin 2.4 GM/DL Calcium Level 8.0 MG/DL 8.0 MG/DL Alkaline Phosphatase 49 U/L Aspartate Amino Transf (AST/SGOT) 19 U/L Alanine Aminotransferase (ALT/SGPT) 17 U/L Total Bilirubin 0.3 MG/DL Sodium Level 143 MEQ/L 143 MEQ/L Potassium Level 3.5 MEQ/L 3.8 MEQ/L Chloride Level 114 MEQ/L 110 MEQ/L Carbon Dioxide Level 18.8 MEQ/L 23.1 MEQ/L White Blood Count 9.3 TH/MM3 Red Blood Count 3.95 MIL/MM3 Hemoglobin 12.0 GM/DL Hematocrit 34.9 % Mean Corpuscular Volume 88.3 FL Mean Corpuscular Hemoglobin 30.4 PG Mean Corpuscular Hemoglobin Concent 34.4 % Red Cell Distribution Width 13.3 % Platelet Count 222 TH/MM3 Mean Platelet Volume 8.5 FL Anion Gap 10 MEQ/L Estimat Glomerular Filtration Rate 153 ML/MIN Mental Status Examination Appearance: Appropriate Consciousness: Alert Orientation: Person, Place ([facility]), Date/Time (September 2017), Situation Motor Activity: Other (No motor abnormalities noted) Speech: Unremarkable Language: Adequate Fund of Knowledge: Adequate Attention and Concentration: Adequate Memory: Unremarkable (Registration is 3 out of 3 and recall is 2 out of 3 at 5 minutes.) Mood: Other (Dysphoric) Affect: Other (Generally restricted with periods of affect of reactivity) Thought Process & Associations: Intact, Logical, Goal directed, Linear Thought Content: Appropriate Hallucination Type: None Delusion Type: None Suicidal Ideation: No (Passive thoughts of at this point but see above) Suicidal Plan: No Suicidal Intention: No Homicidal Ideation: No Homicidal Plan: No Homicidal Intention: No Mental Status Exam Remarks Insight and judgment are fair Assessment & Plan Problem List: (1) Adjustment disorder with depressed mood ICD Codes: F43.21 - Adjustment disorder with depressed mood Assessment & Plan 56 year-old female with psychiatric history as detailed above who is presently admitted to the medical floor for management of C. Diff colitis. Psychiatry is consulted for possible SI. On my examination today, patient's presentation is quite manipulative, and some degree of symptom exaggeration or outright malingering for nursing home is suspected. The patient reports recent SI and refuses to discuss plan. Although she does not verbalize active SI at this time , I suspect this will be quite variable, and she may threaten suicide if confronted with a discharge plan unsatisfactory to her. I think it is the most prudent course of action to place the patient under the [place] Act at this time. She can be admitted to inpatient psychiatry for observation once medically cleared. Alternatively, if she begins consistently denying SI, [place] Act can likely then be lifted; please call psychiatry to re-evaluate in this case. I would continue the sitter for safety; patient's antisocial personality traits likely make her chronically unpredictable with regard to suicide/violence risk. I will resume her Celexa 30mg daily for mood. R/B/A for Celexa discussed with patient, and in particular I did discuss with her the possibility of induction of ravindra with this agent, although as noted above she has been treated exclusively with antidepressants by her report. Case discussed with RN. Thank you very much for this consultation. Please call or page with questions. I will apprise Dr. Ramirez of the case after the weekend. Jose Bravo MD September 28, 2017 17:16
[2017-09-28] MEDS ORDERED: PILL SPLITTER OTHER PRN (17:30)
[2017-09-28] MEDS: REMOVE OLD PATCH T-DERMAL SCH (21:00)
[2017-09-29] VITALS: BP 151/74; PULSE 60; PULSE 62; RESP 18; TEMP 98; O2SAT 94
[2017-09-29] MEDS: MORPHINE SULFATE 4 MG/ML INJ IV PUSH PRN ×3 (02:40→12:59)
[2017-09-29 04:00] VITALS: BP 160/77; PULSE 52; PULSE 55; RESP 17; TEMP 97.9; O2SAT 94
[2017-09-29 05:39] LABS: BICARBONATE 23.3 MEQ/L (21.0-32.0); CALCIUM 8.2 MG/DL (8.5-10.1); CREATININE 0.52 MG/DL (0.50-1.00)
[2017-09-29] MEDS: metroNIDAZOLE 500 MG TAB PO SCH ×2 (05:57→12:59)
[2017-09-29] MEDS: ACETAMINOPHEN/HYDROcodone 325 MG/7.5 MG TAB PO PRN ×3 (05:57→14:59)
[2017-09-29 06:38] LABS: HEMATOCRIT 34.9 % (35.0-46.0); HEMOGLOBIN 12.1 GM/DL (11.6-15.3); MEAN CELL VOLUME 87.9 FL (80.0-100.0); MEAN CORPUSCULAR HEMOGLOBIN 30.6 PG (27.0-34.0); MEAN CORPUSCULAR HGB CONC 34.8 % (32.0-36.0); MEAN PLATELET VOLUME 8.4 FL (7.0-11.0); PLATELET COUNT 229 TH/MM3 (150-450); RED BLOOD COUNT 3.97 MIL/MM3 (4.00-5.30); RED CELL DISTRIBUTION WIDTH 13.3 % (11.6-17.2); WHITE BLOOD COUNT 7.9 TH/MM3 (4.0-11.0)
[2017-09-29 08:00] VITALS: BP 176/79; PULSE 53; PULSE 60; RESP 16; TEMP 97.7; O2SAT 95
[2017-09-29] MEDS ORDERED: CALCIUM CARBONATE 500 MG CHEWABLE TAB CHEW ONE (08:00)
[2017-09-29] MEDS: RESP: ALBUTEROL 2.5 MG/IPRATROPIUM 0.5 MG NEB (SCH) NEB ×2 (08:00→11:52)
[2017-09-29] MEDS: LISINOPRIL 20 MG TAB PO SCH (08:39)
[2017-09-29] MEDS: NICOTINE 14 MG/24 HR PATCH T-DERMAL SCH (08:42)
[2017-09-29] MEDS: VANCOMYCIN 500 MG VIAL (FOR ORAL USE ONLY) PO SCH ×2 (08:43→12:59)
[2017-09-29] MEDS: SODIUM CHLORIDE 0.9% FLUSH 10 ML FLUSH IV FLUSH SCH (08:43)
[2017-09-29] MEDS: CHOLESTYRAMINE 4 GM PACKET PO SCH (08:44)
[2017-09-29] MEDS ORDERED: CITALOPRAM HYDROBROMIDE 20 MG TAB PO SCH (09:00)
[2017-09-29] MEDS ORDERED: HYDR-3516 PO (09:03)
--- NOTE | 2017-09-29 09:03 | HHI.DCPOC ---
Discharge Care Plan Diagnosis: (1) Colitis Goals to Promote Your Health * To prevent worsening of your condition and complications * To maintain your health at the optimal level Directions to Meet Your Goals Take your medications as prescribed Follow your dietary instruction Follow activity as directed Keep your appointments as scheduled Take your immunizations and boosters as scheduled If your symptoms worsen call your PCP, if no PCP go to Urgent Care Center or Emergency Room Smoking is Dangerous to Your Health. Avoid second hand smoke Call the 24-hour hour crisis hotline for domestic abuse at Ewelina Nicole MD R3 September 29, 2017 09:03
[2017-09-29] MEDS ORDERED: LISI-515 PO (09:23)
[2017-09-29] MEDS ORDERED: CHOL4POW4 PO (09:23)
[2017-09-29] MEDS ORDERED: CELE20TA PO (09:23)
--- NOTE | 2017-09-29 09:23 | HHI.DS ---
Discharge Summary Admission Date September 24, 2017 at 15:28 Admitting Diagnosis Hypokalemia, colitis, leukocytosis, pneumonia (1) SIRS (systemic inflammatory response syndrome) Plan: Patient meets SIRS criteria upon admission due to tachycardia and elevated white blood cell count and known source of infection See plan as below ICD Codes: R65.10 - Systemic inflammatory response syndrome (SIRS) of non- infectious origin without acute organ dysfunction Status: Acute (2) C. difficile colitis Plan: C. difficile positive, treating with oral vancomycin 125 mg p.o. 4 times daily, will plan on doing a total 14 day course- started on 09/25 Continue patient on Flagyl 500 mg IV every 8 hours- started on 09/25, will transition to PO Flagyl today Continue Cholestyramine 4 gm PO daily today for diarrhea Giardia and Cryptosporidium negative Final stool culture resulted with no enteric pathogens detected by PCR Decrease IV fluids to 42mls/hr until patient has better p.o. intake NG tube, patient refused GI consulted, recommendations appreciated -Colonoscopy as outpatient, continue antibiotics, supportive care -Follow-up in office regarding Hepatitis C treatment -GI signing off Prior Labs & Imagin day history of abdominal pain and 5 day history of nonbloody, watery diarrhea. Colitis versus GI bleed versus mesenteric ischemia Abdominal CT demonstrates colitis, patchy pulmonary infiltrates, calcified uterine fibroid, celiac axis, the SMA, and the MAUREEN are well visualized approximately and appears widely patent. White count elevated at 23 on admission, improved to 15.6 today Hemoccult-positive, performed in the ED ICD Codes: A04.72 - Enterocolitis due to Clostridium difficile, not specified as recurrent (3) Depression Plan: Patient states that she has plans of hurting herself. Reports that she tried to hurt herself in the past, was not specific. Hx of depression. Psychiatry consulted for possible suicidal ideation, appreciate recommendations Sitter ordered Patient is stable and can be cleared from a medical standpoint if she were to transfer over to the inpatient psych unit ICD Codes: F32.9 - Major depressive disorder, single episode, unspecified Status: Acute (4) Abnormal CXR (chest x-ray) Plan: CT positive for pulmonary infiltrates Chest x-ray demonstrates highly hilar opacities consistent with central pulmonary vascular congestion BNP 263 2D echo complete with Doppler, EF of 60-65%, moderate aortic valve regurgitation , aortic valve sclerosis, no vegetations Incentive spirometry Patient not requiring oxygen at this time Continue DuoNeb 1 amp every 6 ICD Codes: R93.8 - Abnormal findings on diagnostic imaging of other specified body structures (5) Hepatitis C Plan: Patient positive for hep C. Patient reports that she has positive for hep C in the past due to IV drug use. Patient reports not being treated. Genotype and quantitative pending Patient will follow up with GI outpatient for hepatitis C treatment ICD Codes: B19.20 - Hepatitis C Status: Acute (6) Hypokalemia Plan: Potassium of 2.9 on admission Resolved Continue to monitor ICD Codes: E87.6 - Hypokalemia Status: Resolved (7) History of drug use Plan: Urine drug screen negative to date Ethanol level less than 3 2D echo complete with Doppler demonstrates no vegetations HIV negative ICD Codes: Z87.898 - Personal history of other specified conditions (8) HTN (hypertension) Plan: Blood pressure elevated at 174/86, discontinued fluids Continue lisinopril 20mg daily Clonidine 0.1mg PO q6h PRN for BP > 180/100 ICD Codes: I10 - Essential (primary) hypertension (9) Nutrition, metabolism, and development symptoms Plan: Diet: Full liquid diet, progress diet as tolerated Fluids PO hydration Electrolytes: monitor and replace as needed Monitor I's and O's, vitals every 4 Patient on seizure precautions [facility] protocol Case management consulted See the residents documentation for details. I saw and evaluated the patient regarding the gregg portions of this evaluation and agree with the residents findings and plans as written. Parts of this note were created using [employer] voice recognition software program. While efforts were made to correct any mistakes made by this software, some mistakes, errors, and omissions may remain in the final note that were not caught when the note was originally created. Plan of care was discussed and agreed upon with the patient as specifically documented in the above note. An opportunity to ask questions with explanation was provided. Patient voiced understanding on all information reviewed and discussed. ICD Codes: R63.8 - Other symptoms and signs concerning food and fluid intake Brief History 56-year-old female with CAD status post stent 2, anxiety, depression, history of IV drug use, and recent encephalopathy presents to the ED via EMS for abdominal pain. She states that she had lower abdominal pain that started yesterday evening. She describes it as cramping, intermittent with no radiation. She rates the pain as 5 out of 10. She also states that she has been having watery, nonbloody diarrhea for the past 5 days. She endorses nausea but no vomiting. She states that she has had a 20 pound weight loss in the past month. She associates the weight loss with stress. She denies fevers and night sweats. She states that her abdominal pain is not related to food. She has not had a colonoscopy in the past. She denies chest pain, headache, shortness of breath, cough, and dysuria. She denies suicidal ideation. She was living at the [facility]. She states that as of today she is homeless. Patient has history of possible seizures on Lamictal. She reports not taking Lamictal. She states that she was not able to pick it up. She is not compliant with any of her medications. She denies recent seizures, tongue biting, loss of bowel and bladder control. CBC/BMP: 09/29/17 0402 09/29/17 0402 Significant Findings Laboratory Tests Test 09/27/17 03:41 09/28/17 06:36 09/29/17 04:02 Red Blood Count 3.69 MIL/MM3 (4.00-5.30) 3.95 MIL/MM3 (4.00-5.30) 3.97 MIL/MM3 (4.00-5.30) Hemoglobin 11.1 GM/DL (11.6-15.3) Hematocrit 32.6 % (35.0-46.0) 34.9 % (35.0-46.0) 34.9 % (35.0-46.0) Blood Urea Nitrogen 4 MG/DL (7-18) 4 MG/DL (7-18) 4 MG/DL (7-18) Creatinine 0.40 MG/DL (0.50-1.00) 0.43 MG/DL (0.50-1.00) Calcium Level 7.9 MG/DL (8.5-10.1) 8.0 MG/DL (8.5-10.1) 8.2 MG/DL (8.5-10.1) Chloride Level 115 MEQ/L (98-107) 110 MEQ/L (98-107) 109 MEQ/L (98-107) PE at Discharge GENERAL: Thin female, lying in bed, sleepy and agitated SKIN: No rashes, ecchymoses or lesions. Cool and dry. CARDIOVASCULAR: Regular rate and rhythm without murmurs, gallops, or rubs. RESPIRATORY: Clear to auscultation. Breath sounds equal bilaterally. GASTROINTESTINAL: Abdomen soft, moderate tenderness in the lower abdominal quadrant unchanged from prior exam, nondistended. No hepato-splenomegaly, or palpable masses. No guarding. MUSCULOSKELETAL: Extremities without clubbing, cyanosis, or edema. No joint tenderness, effusion, or edema noted. No calf tenderness. Negative Homans sign bilaterally. NEUROLOGICAL: Awake and sleepy. Normal speech. Hospital Course 56-year-old female with CAD status post stent 2, anxiety, depression, history of IV drug use admitted on 09/24/17 for sepsis secondary to C. difficile colitis. Patient was treated with Flagyl 500 mg every 8 hours and oral vancomycin 125 mg p.o. QID-total 14 day course. GI was consulted. She was found to be hep C positive. Recommended that patient get a outpatient colonoscopy and hep C treatment. Patient states that she was homeless and was kicked out of the [facility]. During the end of discharge patient stated that she had a plan to hurt herself. However she, she did not want to discuss the pain. Psychiatry was consulted. Patient was medically stable to be discharged to inpatient patient psych on 09/29/17. Pt Condition on Discharge: Stable Discharge Instructions Follow up Referrals: Gastroenterology - 2 Weeks PCP Follow-up - 1 Week New Medications: Lisinopril (Lisinopril) 20 Mg Tab 20 MG PO DAILY, #30 TAB Discontinued Medications: Aspirin (Aspirin) 81 Mg Chew 81 MG PO DAILY, TAB 0 Refills Citalopram (Celexa) 20 Mg Tab 30 MG PO DAILY for Control Depression, #30 TAB 0 Refills Ibuprofen (Ibuprofen) 600 Mg Tab 600 MG PO Q6H PRN for Pain/Inflammation, #20 TAB 0 Refills Lamotrigine (Lamotrigine) 25 Mg Tab 50 MG PO BID for Control Seizures, #60 TAB 0 Refills Medroxyprogesterone Inj (Depo-Provera Inj) 150 Mg/Ml Inj 150 MG IM ONCE for Control, #1 VIAL 0 Refills Methocarbamol (Methocarbamol) 500 Mg Tab 500 MG PO QID PRN for PAIN SCALE 1 TO 5, #120 TAB 0 Refills Nifedipine (Nifedipine ER) 90 Mg Tab 90 MG PO DAILY for Blood Pressure Management, #30 TAB Noemi Orellana MD R1 September 29, 2017 09:23
--- NOTE | 2017-09-29 10:06 | HHI.FPPN ---
Subjective Remarks No acute events overnight. Patient lying in bed this morning. Patient elevated at 176/79 prior to receiving potential medication. Patient still endorses some mild lower abdominal pain. She denies chest pain, shortness of breath, and nausea and vomiting. 2 bowel movements recorded in the last 24 hours and 4 voids. Patient understands that she will be medically clear and discharged to inpatient psych. Patient is agreeable to contacting her daughter. Case management states that patient is not allowed to stay with daughter, but will contact daughter to let her know of her mom status. (Noemi Orellana MD R1) Objective Vitals Vital Signs Date Time Temp Pulse Resp B/P (MAP) Pulse Ox O2 Delivery O2 Flow Rate FiO2 09/29/17 08:45 21 09/29/17 08:00 97.7 60 16 176/79 (111) 95 09/29/17 04:51 Room Air 09/29/17 04:00 97.9 55 17 160/77 (104) 94 09/29/17 04:00 52 09/29/17 00:00 Room Air 09/29/17 00:00 98.0 60 18 151/74 (99) 94 09/29/17 00:00 62 09/28/17 22:54 Room Air 09/28/17 20:00 98.0 60 17 150/74 (99) 95 09/28/17 20:00 63 09/28/17 19:51 95 09/28/17 16:00 66 09/28/17 16:00 97.8 72 18 143/73 (96) 95 09/28/17 12:00 98.2 71 19 165/81 (109) 97 160/80 (106) 09/28/17 12:00 63 I/O 09/28/17 09/28/17 09/28/17 09/29/17 09/29/17 09/29/17 07:00 15:00 23:00 07:00 15:00 23:00 Intake Total 1450 ml 100 ml 900 ml 222 ml Output Total 600 ml Balance 850 ml 100 ml 900 ml 222 ml Intake Oral 450 ml 900 ml 222 ml IV Total 1000 ml 100 ml Output Urine Total 600 ml # Voids 3 3 1 # Bowel Movements 1 2 0 (Noemi Orellana MD R1) Result Diagram: 09/29/17 04009/29/17 0402 Objective Remarks GENERAL: Thin female, lying in bed, sleepy, more awake and alert than usual SKIN: No rashes, ecchymoses or lesions. Cool and dry. CARDIOVASCULAR: Regular rate and rhythm without murmurs, gallops, or rubs. RESPIRATORY: Clear to auscultation. Breath sounds equal bilaterally. GASTROINTESTINAL: Abdomen soft, moderate tenderness in the lower abdominal quadrant unchanged from prior exam, nondistended. No hepato-splenomegaly, or palpable masses. No guarding. MUSCULOSKELETAL: Extremities without clubbing, cyanosis, or edema. No joint tenderness, effusion, or edema noted. No calf tenderness. Negative Homans sign bilaterally. NEUROLOGICAL: Awake and alert.. Normal speech. (Noemi Orellana MD R1) A/P Assessment and Plan 56-year-old female with CAD status post stent 2, anxiety, depression, history of IV drug use, and recent encephalopathy presents to the ED via EMS for abdominal pain. Admitted for SIRS, further management, and workup. Discharge Planning Patient is [place] acted per psychiatry Patient will be discharged to inpatient psychiatry (Noemi Orellana MD R1) Problem List: (1) SIRS (systemic inflammatory response syndrome) ICD Codes: R65.10 - Systemic inflammatory response syndrome (SIRS) of non- infectious origin without acute organ dysfunction Status: Acute Plan: Patient meets SIRS criteria upon admission due to tachycardia and elevated white blood cell count and known source of infection See plan as below (2) C. difficile colitis ICD Codes: A04.72 - Enterocolitis due to Clostridium difficile, not specified as recurrent Plan: C. difficile positive, treating with oral vancomycin 125 mg p.o. 4 times daily, will plan on doing a total 14 day course- started on 09/25 Continue Flagyl 500 mg PO every 8 hours- started on 09/25 Continue Cholestyramine 4 gm PO daily today for diarrhea Giardia and Cryptosporidium negative Final stool culture resulted with no enteric pathogens detected by PCR NG tube, patient refused GI consulted, recommendations appreciated -Colonoscopy as outpatient, continue antibiotics, supportive care -Follow-up in office regarding Hepatitis C treatment -Hep C genotype 4, quantitative 75,3000, 5.88 -GI signing off Prior Labs & Imagin day history of abdominal pain and 5 day history of nonbloody, watery diarrhea. Colitis versus GI bleed versus mesenteric ischemia Abdominal CT demonstrates colitis, patchy pulmonary infiltrates, calcified uterine fibroid, celiac axis, the SMA, and the MAUREEN are well visualized approximately and appears widely patent. White count elevated at 23 on admission, improved to 15.6 today Hemoccult-positive, performed in the ED (3) Depression ICD Codes: F32.9 - Major depressive disorder, single episode, unspecified Status: Acute Plan: Patient states that she has plans of hurting herself. Reports that she tried to hurt herself in the past, was not specific. Hx of depression. Psychiatry consulted for possible suicidal ideation, recommendations appreciated Sitter ordered Patient is stable and cleared for medical discharge to inpatient psych (4) Abnormal CXR (chest x-ray) ICD Codes: R93.8 - Abnormal findings on diagnostic imaging of other specified body structures Plan: CT positive for pulmonary infiltrates Chest x-ray demonstrates highly hilar opacities consistent with central pulmonary vascular congestion BNP 263 2D echo complete with Doppler, EF of 60-65%, moderate aortic valve regurgitation , aortic valve sclerosis, no vegetations Incentive spirometry Patient not requiring oxygen at this time Continue DuoNeb 1 amp every 6 (5) Hepatitis C ICD Codes: B19.20 - Hepatitis C Status: Acute Plan: Patient positive for hep C. Patient reports that she has positive for hep C in the past due to IV drug use. Patient reports not being treated. Genotype 4, quantitiave 75,3000, 5.88 Patient will follow up with GI outpatient for hepatitis C treatment (6) Hypokalemia ICD Codes: E87.6 - Hypokalemia Status: Resolved Plan: Potassium of 2.9 on admission Resolved Continue to monitor (7) History of drug use ICD Codes: Z87.898 - Personal history of other specified conditions Plan: Urine drug screen negative to date Ethanol level less than 3 2D echo complete with Doppler demonstrates no vegetations HIV negative (8) HTN (hypertension) ICD Codes: I10 - Essential (primary) hypertension Plan: Blood pressure elevated at 174/86, discontinued fluids Continue lisinopril 20mg daily Clonidine 0.1mg PO q6h PRN for BP > 180/100 (9) Nutrition, metabolism, and development symptoms ICD Codes: R63.8 - Other symptoms and signs concerning food and fluid intake Plan: Diet: Full liquid diet, progress diet as tolerated Fluids PO hydration Electrolytes: monitor and replace as needed Monitor I's and O's, vitals every 4 Patient on seizure precautions [facility] protocol Case management consulted (Noemi Orellana MD R1) Problem List: (1) SIRS (systemic inflammatory response syndrome) ICD Codes: R65.10 - Systemic inflammatory response syndrome (SIRS) of non- infectious origin without acute organ dysfunction Status: Acute Plan: Patient meets SIRS criteria upon admission due to tachycardia and elevated white blood cell count and known source of infection See plan as below (2) C. difficile colitis ICD Codes: A04.72 - Enterocolitis due to Clostridium difficile, not specified as recurrent Plan: C. difficile positive, treating with oral vancomycin 125 mg p.o. 4 times daily, will plan on doing a total 14 day course- started on 09/25 Continue Flagyl 500 mg PO every 8 hours- started on 09/25 Continue Cholestyramine 4 gm PO daily today for diarrhea Giardia and Cryptosporidium negative Final stool culture resulted with no enteric pathogens detected by PCR NG tube, patient refused GI consulted, recommendations appreciated -Colonoscopy as outpatient, continue antibiotics, supportive care -Follow-up in office regarding Hepatitis C treatment -Hep C genotype 4, quantitative 75,3000, 5.88 -GI signing off Prior Labs & Imagin day history of abdominal pain and 5 day history of nonbloody, watery diarrhea. Colitis versus GI bleed versus mesenteric ischemia Abdominal CT demonstrates colitis, patchy pulmonary infiltrates, calcified uterine fibroid, celiac axis, the SMA, and the MAUREEN are well visualized approximately and appears widely patent. White count elevated at 23 on admission, improved to 15.6 today Hemoccult-positive, performed in the ED (3) Depression ICD Codes: F32.9 - Major depressive disorder, single episode, unspecified Status: Acute Plan: Patient states that she has plans of hurting herself. Reports that she tried to hurt herself in the past, was not specific. Hx of depression. Psychiatry consulted for possible suicidal ideation, recommendations appreciated Sitter ordered Patient is stable and cleared for medical discharge to inpatient psych (4) Abnormal CXR (chest x-ray) ICD Codes: R93.8 - Abnormal findings on diagnostic imaging of other specified body structures Plan: CT positive for pulmonary infiltrates Chest x-ray demonstrates highly hilar opacities consistent with central pulmonary vascular congestion BNP 263 2D echo complete with Doppler, EF of 60-65%, moderate aortic valve regurgitation , aortic valve sclerosis, no vegetations Incentive spirometry Patient not requiring oxygen at this time Continue DuoNeb 1 amp every 6 (5) Hepatitis C ICD Codes: B19.20 - Hepatitis C Status: Acute Plan: Patient positive for hep C. Patient reports that she has positive for hep C in the past due to IV drug use. Patient reports not being treated. Genotype 4, quantitiave 75,3000, 5.88 Patient will follow up with GI outpatient for hepatitis C treatment (6) Hypokalemia ICD Codes: E87.6 - Hypokalemia Status: Resolved Plan: Potassium of 2.9 on admission Resolved Continue to monitor (7) History of drug use ICD Codes: Z87.898 - Personal history of other specified conditions Plan: Urine drug screen negative to date Ethanol level less than 3 2D echo complete with Doppler demonstrates no vegetations HIV negative (8) HTN (hypertension) ICD Codes: I10 - Essential (primary) hypertension Plan: Blood pressure elevated at 174/86, discontinued fluids Continue lisinopril 20mg daily Clonidine 0.1mg PO q6h PRN for BP > 180/100 (9) Nutrition, metabolism, and development symptoms ICD Codes: R63.8 - Other symptoms and signs concerning food and fluid intake Plan: Diet: Full liquid diet, progress diet as tolerated Fluids PO hydration Electrolytes: monitor and replace as needed Monitor I's and O's, vitals every 4 Patient on seizure precautions [facility] protocol Case management consulted See the residents documentation for details. I saw and evaluated the patient regarding the gregg portions of this evaluation and agree with the residents findings and plans as written. Parts of this note were created using [employer] voice recognition software program. While efforts were made to correct any mistakes made by this software, some mistakes, errors, and omissions may remain in the final note that were not caught when the note was originally created. Plan of care was discussed and agreed upon with the patient as specifically documented in the above note. An opportunity to ask questions with explanation was provided. Patient voiced understanding on all information reviewed and discussed. (Sachin Guerra MD) Noemi Orellana MD R1 September 29, 2017 10:06 Sachin Guerra MD September 30, 2017 14:26
[2017-09-29 12:00] VITALS: BP 148/70; PULSE 57; PULSE 63; RESP 17; TEMP 98.1; O2SAT 96
[2017-09-29] MEDS: HEPARIN SODIUM - SQ 10,000 UNITS/ML VIAL SQ SCH (13:07)
[2017-09-29 16:00] VITALS: BP 149/67; PULSE 64; RESP 17; TEMP 98.2; O2SAT 97
[2017-10-02] MEDS ORDERED: CELE20TA PO (10:15)
[2017-10-02] MEDS ORDERED: CHOL4POW4 PO (11:37)
[2017-10-02] MEDS ORDERED: VANC125C3 PO (11:37)
[2017-10-02] MEDS ORDERED: DICY10 PO (11:37)
[2017-10-02] MEDS ORDERED: ASPI81 CHEW (11:37)
[2017-10-02] MEDS ORDERED: LOPE2CAP2 PO (11:37)
[2017-10-02] MEDS ORDERED: METR-1 PO (11:37)
[2017-10-02] MEDS ORDERED: KLOR10TA PO (11:37)
== END 2017-09-29 16:30 | DRG 872 ==
LOC: NEPE 12:23 → NEDA 15:28 → N04B 18:46
PROVIDERS: ADMIT Family Medicine; ATTEND Family Medicine
DX: A41.9 Sepsis, unspecified organism (principal); A04.72 Enterocolitis due to Clostridium difficile, not specified as recurrent; I10 Essential (primary) hypertension; E87.6 Hypokalemia; I25.10 Atherosclerotic heart disease of native coronary artery without angina pectoris; K52.9 Noninfective gastroenteritis and colitis, unspecified; B19.20 Unspecified viral hepatitis C without hepatic coma; F43.21 Adjustment disorder with depressed mood; F17.200 Nicotine dependence, unspecified, uncomplicated; Z91.19 Patient's noncompliance with other medical treatment and regimen; Z95.5 Presence of coronary angioplasty implant and graft; Z88.1 Allergy status to other antibiotic agents; Z88.8 Allergy status to other drugs, medicaments and biological substances; Z79.82 Long term (current) use of aspirin; Z79.899 Other long term (current) drug therapy
CPT/HCPCS: 71046; 74177; 80048; 80053; 80074; 80307; 81001; 83605; 83690; 83735; 83880; 85025; 85027; 85610; 85730; 86703; 87040; 87205; 87328; 87329; 87449; 87493; 87506; 87522; 87902; 93005; 93306; 94664; 96361; 96365; C9113; G0481; J0744; J1644; J1956; J2270; J3480; J7030; Q9967

== ENCOUNTER 2017-09-29 16:53 | Inpatient (IN) | END 2017-10-02 13:00 | disposition home or self-care (01) | DRG 881 | DX: F43.21 Adjustment disorder with depressed mood (principal); A04.72 Enterocolitis due to Clostridium difficile, not specified as recurrent; R45.851 Suicidal ideations; I10 Essential (primary) hypertension; F32.9 Major depressive disorder, single episode, unspecified; I25.10 Atherosclerotic heart disease of native coronary artery without angina pectoris; F17.210 Nicotine dependence, cigarettes, uncomplicated; Z79.899 Other long term (current) drug therapy; Z95.5 Presence of coronary angioplasty implant and graft; Z59.0 Homelessness; Z86.19 Personal history of other infectious and parasitic diseases ==

== ENCOUNTER 2017-10-03 17:50 | Emergency (ER) | payer SELFPAY ==
[~2017-10-03] VITALS: Ht 167.6 cm; Wt 58.0 kg
[~2017-10-03 17:50] MED LIST changes: -ASPI-516 PO; +ASPI81 CHEW; +CHOL4POW4 PO; -DEPO150I IM; +DICY10 PO; -IBUP-232 PO; -LAMO25TA PO; +LISI-515 PO; +LOPE2CAP2 PO; -METH500T3 PO; +METR-1 PO; -NIFE90TA2 PO; +VANC125C3 PO
[2017-10-03 17:55] VITALS: BP 105/55; PULSE 88; RESP 16; TEMP 98.7; O2SAT 99
--- NOTE | 2017-10-03 18:04 | PD ---
HPI Chief Complaint: Syncope/Near-Syncope Time Seen by Provider: 18:00 Travel History International Travel<30 days: No Contact w/Intl Traveler<30days: No Traveled to known affect area: No History of Present Illness HPI 56-year-old female presents as an ERT for evaluation after syncopal event. She reports that she was upstairs in [facility] when a friend of hers was having life support withdrawn. She reports that she stepped out of the room and became lightheaded and passed out. This was witnessed. No seizure. She is currently feeling shaky but she would like to leave and return upstairs. She reports that she passed out yesterday as well and she was walking into her friend's hotel room. She denies chest pain, shortness of breath, abdominal pain , nausea or vomiting, headache, blurred vision or any other focal symptoms. The patient has been seen here 5 times this month. She was discharged yesterday from the psychiatric department. Per chart review she has a history of recent treatment of C. difficile colitis, history of coronary disease with stenting, hypertension PFSH Past Medical History Anxiety: Yes Depression: Yes Cancer: No Cardiac Catheterization: Yes (STENTS X 2) Cardiovascular Problems: Yes Cerebrovascular Accident: Yes (2 WEEKS AGO WITH RIGHT SIDE NUMBNESS) Coronary Artery Disease: Yes Diminished Hearing: No Endocrine: No Genitourinary: No Hypertension: Yes Immune Disorder: Yes (HEP C) Musculoskeletal: Yes Neurologic: Yes Psychiatric: Yes Reproductive: No Respiratory: No Seizures: Yes Menopausal: Yes : 1 Para: 1 Past Surgical History Cardiac Surgery: Yes (STENT X2) Section: Yes (X 1) Gynecologic Surgery: Yes () Neurologic Surgery: Yes (DISKECTOMY) Tonsillectomy: Yes Other Surgery: Yes Social History Alcohol Use: Yes (HX OF ETOH ABUSE) Tobacco Use: Yes (1 PPD) Substance Use: No Allergies-Medications (Allergen,Severity, Reaction): Coded Allergies: nitroglycerin (Verified Allergy, Severe, Anaphylaxis, 09/24/17) doxycycline (Verified Adverse Reaction, Intermediate, Shortness of Breath , 09/24/17) minocycline (Verified Adverse Reaction, Intermediate, Shortness of Breath , 09/24/17) tigecycline (Verified Adverse Reaction, Intermediate, Shortness of Breath , 09/24/17) Reported Meds & Prescriptions Reported Meds & Active Scripts Active Tgt Aspirin (Aspirin) 81 Mg Chw 81 Mg CHEW DAILY Bentyl (Dicyclomine HCl) 10 Mg Cap 20 Mg PO QID Hm Loperamide HCl (Loperamide HCl) 2 Mg Cap 2 Mg PO Q4H PRN Cholestyramine 4 Gm/Pkt Powd 4 Gm PO BID 1 packet contains 4 grams of cholestyramine. Flagyl (Metronidazole) 500 Mg Tab 500 Mg PO Q8HR Take one tablet every 8 hours Vancomycin (Vancomycin HCl) 125 Mg Cap 125 Mg PO QID Take one tablet every 6 hours Klor-Con 10 (Potassium Chloride) 10 Meq Tab 10 Meq PO DAILY Celexa (Citalopram Hydrobromide) 20 Mg Tab 30 Mg PO DAILY 30 Days Lisinopril 20 Mg Tab 20 Mg PO DAILY Review of Systems Except as stated in HPI: all other systems reviewed are Neg Physical Exam Narrative GENERAL: Well-developed well-nourished female who appears anxious and tearful. SKIN: Warm and dry. HEAD: Atraumatic. Normocephalic. EYES: Pupils equal and round. No scleral icterus. No injection or drainage. ENT: No nasal bleeding or discharge. Mucous membranes pink and moist. NECK: Trachea midline. No JVD. CARDIOVASCULAR: Regular rate and rhythm. No murmur appreciated. RESPIRATORY: No accessory muscle use. Clear to auscultation. Breath sounds equal bilaterally. GASTROINTESTINAL: Abdomen soft, non-tender, nondistended. Hepatic and splenic margins not palpable. MUSCULOSKELETAL: No obvious deformities. No clubbing. No cyanosis. No edema. NEUROLOGICAL: Awake and alert. No obvious cranial nerve deficits. Motor grossly within normal limits. Normal speech. Data Data Last Documented VS Vital Signs Date Time Temp Pulse Resp B/P (MAP) Pulse Ox O2 Delivery O2 Flow Rate FiO2 10/03/17 17:55 98.7 88 16 105/55 (72) 99 MDM Medical Decision Making Medical Screen Exam Complete: Yes Emergency Medical Condition: Yes Medical Record Reviewed: Yes Differential Diagnosis Syncope, seizure, arrhythmia, electrolyte abnormality, hypoglycemia, anemia Narrative Course The patient requested to leave immediately after arriving. She reports that she needs to return upstairs as her friend is having life support withdrawn. She understands that without any testing there is no other definitely say why she passed out today and the fact that she had a syncopal event yesterday is also concerning. She understands but still says that she is going to leave AMA. She says that she will return when she can. AMA: The risks of leaving against medical advice without further evaluation treatment were discussed with the patient. These risks include cardiac dysfunction, cardiac dysrhythmia, possible heart attack, possible stroke or . The patient indicated understanding of these risks and appeared to have the capacity to make this decision. Diagnosis Primary Impression: Left against medical advice Med/Other Pt SpecificInfo: No Change to Meds Disposition: 07 AGAINST MEDICAL ADVICE Condition: Stable Bright May October 03, 2017 18:04
== END 2017-10-03 18:20 | disposition left against medical advice (07) ==
LOC: NEPC 17:50
DX: R55 Syncope and collapse (principal); Z53.21 Procedure and treatment not carried out due to patient leaving prior to being seen by health care provider
CPT/HCPCS: 99281